=== PATIENT | male | born 1960 | race Caucasian/White ===

== ENCOUNTER 2018-10-25 17:29 | Inpatient (IN) | payer OTHER ==
[2018-10-25] MEDS ORDERED: ONDANSETRON 4 MG/2 ML VIAL IVP ONE (17:51)
[2018-10-25] MEDS ORDERED: NS 1,000 ML IV ONE ×2 (17:56→18:29)
--- NOTE | 2018-10-25 17:56 | EDPHY ---
H & P Stated Complaint: abd pain, n/v - Personal History Current Tetanus/Diphtheria Vaccine: Yes Current Tetanus Diphtheria and Acellular Pertussis (TDAP): Yes - Medical/Surgical History Hx Asthma: No Hx Chronic Respiratory Disease: No Hx Diabetes: No Hx Cardiac Disease: No Hx Renal Disease: No Hx Cirrhosis: No Hx Alcoholism: No Hx HIV/AIDS: No Hx Splenectomy or Spleen Trauma: No Other PMH: endoscopy, GERD, - Social History Smoking Status: Never smoked Time Seen by Provider: 10/25/18 17:46 HPI/ROS: CHIEF COMPLAINT: Abdominal pain post EGD HISTORY OF PRESENT ILLNESS: 57-year-old male arrives via private vehicle complaining of abdominal pain post EGD this morning by Dr. Anand Parks. Describes waking with progressive abdominal pain which comes in waves. He had 1 episode of vomiting. No hematemesis. No melena hematochezia. No dyspnea. No back pain. No headache. PRIMARY CARE PROVIDER: REVIEW OF SYSTEMS: 10 systems reviewed and negative with the exception of the elements mentioned in the history of present illness PAST MEDICAL & SURGICAL HISTORY: EGD earlier today by Dr. Anand Parks secondary to history of esophageal reflux. No history of abdominal surgeries. SOCIAL HISTORY: Nonsmoker PHYSICAL EXAM (Prior to examination, patient consented to physical exam, hands were washed and my usual and customary physical exam procedures followed) 1) GENERAL: Well-developed, well-nourished, alert and oriented. Appears appears uncomfortable,. 2) HEAD: Normocephalic, atraumatic 3) HEENT: Pupils equal, round, reactive to light bilaterally. Sclera anicteric. 4) NECK: Full range of motion, no meningeal signs. 5) LUNGS: Clear auscultation bilaterally, no wheezes, no rhonchi, no retractions. 6) HEART: Regular rate and rhythm, no murmur, no heave, no gallop. No crepitus. 7) ABDOMEN: No guarding, no rebound, no focal tenderness, negative McBurney's, negative Guillaume's, negative Rovsing's, negative peritoneal sign, 8) MUSCULOSKELETAL: Moving all extremities, no focal areas of tenderness, no obvious trauma. No peripheral edema or discoloration. 9) BACK: No CVA tenderness, no midline vertebral tenderness, no fluctuance, no step-off, no obvious trauma, no visual or palpable abnormality. 10) SKIN: No rash, no petechiae. 11) Psychiatric: Patient is oriented X 3, there is no agitation. DIFFERENTIAL DIAGNOSIS: In no particular order including but not limited to esophageal perforation, visceral perforation, postprocedure pain (Gisele Holland) I did seen and evaluate this patient. Perforated Viscous. IV Abx, IV fluids, Surgery Consult, Admit. Dr. Leon Consulted for perforation. Patient stable. NAD. Has abdominal pain/Chest pain from Free air. (Shun Mcdonald) Constitutional: Initial Vital Signs Temperature (C) 37.2 C 10/25/18 17:33 Heart Rate 85 10/25/18 17:33 Respiratory Rate 16 10/25/18 17:33 Blood Pressure 85/65 L 10/25/18 17:33 O2 Sat (%) 91 L 10/25/18 17:33 O2 Delivery Mode Simple Mask O2 (L/minute) 10 Allergies/Adverse Reactions: No Known Allergies Allergy (Unverified 10/25/18 17:32) Home Medications: Medication Instructions Recorded Budesonide [Rhinocort Allergy] 1 spray NS DAILY 10/25/18 Loratadine 10 mg PO DAILY 10/25/18 Omeprazole 40 mg PO DAILY 10/25/18 Medical Decision Making - Diagnostics Imaging Results: Imaging Impressions Chest X-Ray 10/25/18 22:46 Impression: Postsurgical changes at the GE junction, with persistent pneumomediastinum and bibasilar atelectasis Images reviewed myself (Gisele Holland) ED Course/Re-evaluation: 5:55 p.m.: Will obtain i-STAT creatinine, CT chest abdomen pelvis. Care of patient under supervision of secondary supervising physician Dr Mcdonald spoke with Dr. Anand Parks earlier today and with whom I discussed case. 6:23 p.m.: CT positive for pneumoperitoneum and pneumomediastinum. 6:26 p.m.: Consultation with Dr. Stas Bianchi, recommends GI consultation and he will come to the ER to evaluate patient. Patient given IV Invanz 6:35 p.m.: Consultation with Dr. Anand Parks who request the on-call entry level project engineer contact him. 6:55 p.m.: Dr. Monroe Robles gastroenterology aware. (Gisele Holland) - Data Points Laboratory Results: Laboratory Results 10/25/18 17:40 10/25/18 17:40 Microbiology Results: MICROBIOLOGY 10/25/18 20:10 Abdomen - Eswab Gram Stain - Final Medications Given: Enoxaparin Sodium (Lovenox) 40 mg SC DAILY [facility] Stop: 04/24/19 08:59 Last Admin: 10/26/18 09:20 Dose: 40 mg Hydromorphone HCl (Dilaudid) 0.5 - 1 mg IVP Q1HR PRN PRN Reason: Pain, Severe Unable to Take PO Stop: 11/04/18 22:39 Last Admin: 10/26/18 04:48 Dose: 1 mg Ertapenem 1 gm/ Sodium (Chloride) 100 mls @ 200 mls/hr IV DAILY CONY PRN Reason: Protocol Stop: 11/25/18 08:59 Last Admin: 10/26/18 09:20 Dose: 100 mls Sodium Chloride (Ns) 1,000 mls @ 125 mls/hr IV CONT CONY Stop: 04/24/19 06:44 Last Admin: 10/26/18 07:36 Dose: 1,000 mls Ondansetron HCl (Zofran) 4 mg IVP Q4HRS PRN PRN Reason: Nausea/Vomiting, Can't Take PO Stop: 04/23/19 22:39 Last Admin: 10/25/18 23:21 Dose: 4 mg Discontinued Medications Bupivacaine HCl (Sensorcaine 0.25% Sdv) Confirm Administered Dose 30 ml .ROUTE .STK-MED ONE Stop: 10/25/18 18:46 Last Admin: 10/25/18 22:00 Dose: 20 ml Hydromorphone HCl (Dilaudid) 1 mg IVP EDNOW ONE Stop: 10/25/18 18:30 Last Admin: 10/25/18 18:33 Dose: 1 mg Hydromorphone HCl (Dilaudid) 1 mg IVP EDNOW ONE Stop: 10/25/18 18:31 Last Admin: 10/26/18 00:15 Dose: Not Given Sodium Chloride (Ns) 1,000 mls @ 0 mls/hr IV ONCE ONE PRN Reason: Wide Open Stop: 10/25/18 17:57 Last Admin: 10/25/18 18:13 Dose: 1,000 mls Ertapenem 1 gm/ Sodium (Chloride) 100 mls @ 200 mls/hr IV EDNOW ONE PRN Reason: Protocol Stop: 10/25/18 18:49 Last Admin: 10/25/18 18:39 Dose: 100 mls Sodium Chloride (Ns) 1,000 mls @ 0 mls/hr IV ONCE ONE PRN Reason: Wide Open Stop: 10/25/18 18:30 Last Admin: 10/25/18 18:46 Dose: 1,000 mls Bupivacaine HCl 270 ml/ IV (Miscellaneous Supplies) 270 mls @ 0 mls/hr NB ONCALL ONE PRN Reason: As Directed Stop: 10/25/18 21:31 Last Admin: 10/25/18 22:33 Dose: 270 mls Dextrose/Sodium Chloride (D5w Ns) 1,000 mls @ 125 mls/hr IV CONT CONY Stop: 10/26/18 22:44 Last Admin: 10/26/18 05:09 Dose: 1,000 mls Morphine Sulfate (Morphine) 4 mg IVP EDNOW ONE Stop: 10/25/18 17:52 Last Admin: 10/25/18 18:12 Dose: 4 mg Ondansetron HCl (Zofran) 4 mg IVP EDNOW ONE Stop: 10/25/18 17:52 Last Admin: 10/25/18 18:11 Dose: 4 mg Point of Care Test Results: Chemistry 10/25/18 17:53 POC Sodium 141 mEq/L mEq/L (135-145) POC Potassium 3.9 mEq/L mEq/L (3.3-5.0) POC Chloride 104 mEq/L mEq/L (97-110) POC BUN 23 mg/dL mg/dL (7-23) POC Creatinine 1.1 mg/dL mg/dL (0.7-1.3) POC Glucose 121 mg/dL H mg/dL (70-100) ISTAT H&H 10/25/18 17:53 POC Hgb 16.0 gm/dL gm/dL (13.7-17.5) POC Hct 47 % % (40-51) Departure - Departure Disposition: To OP Cath/Surgery Clinical Impression: Perforated viscus Condition: Fair
[2018-10-25] MEDS ORDERED: IOPAMIDOL (ISOVUE-300) 100 ML BTL ONE (17:59)
[2018-10-25 18:01] LABS: PLATELET COUNT 227 10^3/uL (150-400)
[2018-10-25] MEDS ORDERED: ERTAPENEM 1 GM in NS 100 ML IV ONE (18:20)
[2018-10-25] MEDS ORDERED: HYDROmorphONE/DILAUDID 1 MG/ML INJ ONE (18:28)
[2018-10-25] MEDS ORDERED: HYDROmorphONE/DILAUDID 1 MG/ML INJ IVP ONE ×2 (18:29→18:30)
[2018-10-25] MEDS ORDERED: BUPIVACAINE 0.25% 10 ML SDV ONE (18:45)
[2018-10-25] MEDS ORDERED: fentaNYL 250 MCG/5 ML INJ ONE (18:59)
[2018-10-25] MEDS ORDERED: PROPOFOL/EMULSION 500 MG/50 ML BOTTLE IV ONE (19:01)
--- NOTE | 2018-10-25 19:26 | PDANEPAE ---
ANE History of Present Illness 57 year old male with esophageal perforation for surgical repair. ANE Past Medical History - Cardiovascular History Hx Hypertension: No Hx Arrhythmias: No Hx Chest Pain: No Hx Coronary Artery / Peripheral Vascular Disease: No Hx CHF / Valvular Disease: No Hx Palpitations: No - Pulmonary History Hx COPD: No Hx Asthma/Reactive Airway Disease: No Hx Recent Upper Respiratory Infection: No Hx Oxygen in Use at Home: No Hx Sleep Apnea: No - Endocrine History Hx Diabetes: No ANE Review of Systems Review of systems is: negative Review of Systems: ANE Patient History - Allergies Allergies/Adverse Reactions: No Known Allergies Allergy (Unverified 10/25/18 17:32) - Home Medications Home Medications: Loratadine 10/25/18 [Last Taken Unknown] Omeprazole 10/25/18 [Last Taken Unknown] Rhinocort Allergy 10/25/18 [Last Taken Unknown] - NPO status NPO Since - Liquids (Date): 10/25/18 NPO Since - Liquids (Time): 13:00 NPO Since - Solids (Date): 10/25/18 NPO Since - Solids (Time): 13:00 - Smoking Hx Smoking Status: Never smoked ANE Labs/Vital Signs - Labs Result Diagrams: 10/25/18 17:40 10/25/18 17:40 - Vital Signs Blood Pressure: 148/91 Heart Rate: 115 Respiratory Rate: 18 O2 Sat (%): 96 Weight: 88.904 kg ANE Physical Exam - Airway Neck exam: FROM Mallampati Score: Class 2 Mouth exam: normal dental/mouth exam - Pulmonary Pulmonary: no respiratory distress - Cardiovascular Cardiovascular: tachycardia - ASA Status ASA Status: III, E ANE Anesthesia Plan Anesthesia Plan: general endotracheal anesthesia Lines/Monitors: arterial line
--- NOTE | 2018-10-25 20:32 | PDGENHP ---
History and Physical History and Physical: History and Physical Exam dictated #[id number] S MD Edward, FACS
[2018-10-25] MEDS ORDERED: BUPIVACAINE 0.25% 270 ML in PUMP SET 1 EA NB ONE (21:30)
[2018-10-25] MEDS ORDERED: NALOXONE HCL 0.4 MG/ML INJ IVP PRN (21:46)
[2018-10-25] MEDS ORDERED: LR 500 ML IV PRN (21:46)
[2018-10-25] MEDS ORDERED: ONDANSETRON 4 MG/2 ML VIAL IVP PRN (21:46)
[2018-10-25] MEDS ORDERED: LABETALOL HCL 5 MG/ML 20 ML MDV IVP PRN (21:46)
[2018-10-25] MEDS ORDERED: ALBUTEROL 3 ML DEYVIAL IH PRN (21:46)
[2018-10-25] MEDS ORDERED: fentaNYL 100 MCG/2 ML INJ IVP PRN (21:46)
--- NOTE | 2018-10-25 22:46 | POSTANESTH ---
Post Anesthetic Evaluation Cardiovascular Status: Normal, Stable Respiratory Status: Normal, Stable Level of Consciousness/Mental Status: Moderately Sleepy Pain Control: Adequate, Prn Tx Ordered Nausea/Vomiting Control: Adequate, Prn Tx Ordered Complications Possibly Related to Anesthesia: None Noted (Patient restrained secondary to attempting to pull OG tube which needs to remain in place.)
--- NOTE | 2018-10-25 22:50 | POSTOPPROG ---
Post Op Note Date of Operation: 10/25/18 Surgeon: Shun Leon (, FACS) Anesthesiologist: Sobeida uSazo MD Anesthesia: GET(General Endotracheal) Pre-op Diagnosis: esophogeal perforation Findings: 3 cm laceration at the GE junction with peritonitis/mediastinitis Inf/Abcess present in the surg proc area at time of surgery?: Yes Depth: Organ Space EBL: 50-100 Specimen(s): culture of peritoneal fluid for aerobes/anaerobes
--- NOTE | 2018-10-25 22:57 | GHP ---
DATE OF ADMISSION: 10/25/2018 CHIEF COMPLAINT: Chest and abdominal pain. HISTORY OF PRESENT ILLNESS: The patient is a 57-year-old male who underwent elective esophagoscopy a nd dilatation of the distal esophagus for symptoms of reflux and dysphagia earlier today by Dr. Jacky vazquez. Patient returned to the emergency room with chest and abdominal pain, was seen by Cipriano gallegos PA-C, and a CT scan of the chest and abdomen were performed which showed mediastinal and abdominal free air. The patient was mildly hypotensive upon arrival with initial blood pressure of 85/65. He responded to fluid resuscitation, though he has become progressively tachycardic. Surgical consulta tion was requested. PAST MEDICAL HISTORY: Significant for prior skin cancer. He has allergies and chronic GERD. He is a nonsmoker. Chronic medications include Rhinocort, loratadine, and omeprazole. He has no known sharath g allergies. Denies significant alcohol use. FAMILY HISTORY: Noncontributory. SOCIAL HISTORY: Patient is , accompanied by his . Her sister is an oncologist in [place], and I spoke with her on the phone describing the nature of the findings and my recommendations for i mmediate surgery. 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 PHYSICAL EXAMINATION: VITAL SIGNS: Blood pressure 140/90, heart rate 115, respiratory rate 18, O2 s at is 96%. Temperature is 37.1. GENERAL: Patient is a pale, otherwise well-developed, well-nourish ed male in moderate distress despite having received intravenous narcotics. HEENT: There is no jugu lar venous distention. Trachea is midline. Sclerae are anicteric. CHEST: Clear to auscultation wi th diminished breath sounds at both bases. HEART: Regular in rate and rhythm with tachycardia. Ham mond's crunch is appreciated on exam. ABDOMEN: Firm, tender throughout the upper mid epigastrium wi th hypoactive bowel sounds. Rectal and prostate exam were not repeated. Patient voided a small amou nt of dark concentrated urine. EXTREMITIES: Warm and dry without edema. Patient's CT scan was reviewed and shows mediastinal and abdominal air including free air in the abdo prashanth cavity. There is gas within the stomach. No appreciable or significant hiatal hernia is noted . No pleural effusion on either side or pneumothorax is noted. LABORATORY STUDIES: WBC is 13, hemoglobin 16, hematocrit 47, platelets 227. Sodium 141, potassium 3 .9, chloride 104, BUN 23, creatinine 1.1, glucose 121, bilirubin 1.2, AST 42, ALT 47, alk phos 56, li pase 119. Urinalysis is pending. IMPRESSION: 1. Esophageal perforation, likely at the gastroesophageal junction, though this cannot be clearly de lineated on imaging without oral contrast. 2. Evidence of early sepsis. Patient was fluid resuscitated and has received 1 g of ertapenem. He will require ongoing fluid resuscitation and is at significant risk for systemic inflammatory respons e syndrome, multiple system organ failure, and I recommend postoperative management in the intensive care unit. 3. History of gastroesophageal reflux disease, which prompted the procedure done earlier today. 4. History of skin cancer. RECOMMENDATIONS: I discussed the findings with the patient and his as well as with her sister t he oncologist on the phone and albert them anatomic diagrams detailing where I believe the perforation to be and what the procedure would be to repair that. I emphasized that this is a potentially life-t hreatening injury and that surgery would be the best performed earlier than later. We discussed the alternative of esophageal stent, which I did not recommend because of the potential for tearing at th e GE junction where stent migration and failure are high. I would consider a fundoplication in this patient for buttressing an esophageal repair and prepared the patient for the possibility of needing a thoracotomy. Copy requested to: Cipriano Holland PA-C /[id number]/MODL
[2018-10-25] MEDS: ONDANSETRON 4 MG/2 ML VIAL IVP PRN (23:21)
[2018-10-25] MEDS: D5W NS 1,000 ML IV SCH (23:28)
[2018-10-25] MEDS: HYDROmorphONE/DILAUDID 1 MG/ML INJ IVP PRN (23:45)
[2018-10-26] MEDS ORDERED: LORazepam 2 MG/ML INJ IVP PRN (00:28)
[2018-10-26] MEDS: HYDROmorphONE/DILAUDID 1 MG/ML INJ IVP PRN ×7 (00:43→22:41)
[2018-10-26 04:57] LABS: PLATELET COUNT 181 10^3/uL (150-400)
[2018-10-26] MEDS: D5W NS 1,000 ML IV SCH (05:09)
--- NOTE | 2018-10-26 06:46 | SOAPPROG ---
SOAP Progress Note Assessment/Plan: Assessment: Plan: Subjective: awake, resting more comfortably Objective: Vital Signs Temp Pulse Resp BP Pulse Ox 36.8 C 95 15 143/95 H 95 10/26/18 04:00 10/26/18 04:00 10/26/18 04:00 10/26/18 03:00 10/26/18 04:00 Laboratory Results 10/26/18 04:40 10/26/18 04:40 10/25/18 10/26/18 10/27/18 05:59 05:59 05:59 Intake Total 2800 Output Total 810 Balance 1989 Physical Exam - Physical Exam General Appearance: moderate distress EENT: other (NGT secured) Respiratory: lungs clear, decreased breath sounds Cardiac/Chest: regular rate, rhythm Peripheral Pulses: 4+: dorsalis-pedis (R), dorsalis-pedis (L) Abdomen: soft, other (hypoactive bowel sounds, dressings dry and intact) Male Genitalia: deferred, other (Taveras) Rectal: deferred ICD10 Worksheet Patient Problems: Problems Problem Status Onset Perforated viscus Acute
[2018-10-26] MEDS: NS 1,000 ML IV SCH ×2 (07:36→15:57)
[2018-10-26] MEDS: ERTAPENEM 1 GM in NS 100 ML IV SCH (09:20)
[2018-10-26] MEDS: ENOXAPARIN 40 MG/0.4 ML SYR SC SCH (09:20)
--- NOTE | 2018-10-26 10:17 | PDMN ---
Medical Necessity Medical necessity: Pt meets inpt criteria per MD orders and General Surgery GRG , repair of gastroesophageal perforation, Medicare inpt only list. 57 y/o w/ esophageal perforation and sepsis admitted for surg repair of gastroesophageal perf w/peritonitis and mediastinitis, post-op care, treatment of sepsis. NGT in place, NPO, IVF, IV ABX's, cultures pending, IV Dilaudid for pain, ICU monitoring. Est LOS>2MN for ongoing eval/management of above.
--- NOTE | 2018-10-26 11:29 | GOP ---
DATE OF OPERATION: 10/25/2018 SURGEON: Shun Leon MD, FACS CONTENT ASSISTANT: Lc Allen CST. ANESTHESIA: General endotracheal. ANESTHESIOLOGIST: Sobeida Suazo MD PREOPERATIVE DIAGNOSIS: 1. Esophageal perforation, status post esophageal dilatation. 2. Pneumoperitoneum. 3. Mediastinal air. POSTOPERATIVE DIAGNOSIS: PROCEDURE PERFORMED: Laparotomy with repair of laceration of the gastroesophageal junction, Lorenza fundoplication, irrigation and evacuation of peritonitis, drainage of the mediastinum. FINDINGS: A 3 cm laceration in the right anterolateral gastroesophageal junction with moderate upper abdominal peritonitis. Culture submitted for aerobes and anaerobes. Posterior mediastinal drains placed. ESTIMATED BLOOD LOSS: 50 mL. DESCRIPTION OF PROCEDURE: After informed consent was obtained, the patient was brought to the operating room and placed under general anesthesia. He was positioned with a wedge under the left shoulder with the right arm draped across the chest with an airplane padding all pressure points in the event that we had to convert to a thoracoabdominal incision. Taveras catheter was placed and he drained some concentrated appearing urine. He was transiently hypotensive after induction and moderately tachycardic, and responded well to fluid resuscitation. The abdomen and chest were prepped and draped in usual fashion. Before proceeding, a time-out and identification of the patient was performed. The abdomen was entered through an upper midline incision extending from the xiphoid to the umbilicus. There was a moderate amount of peritoneal fluid that was dark brownish cloudy in appearance and staining of the lesser omentum was observed. The Omni-Tract retractor was used to facilitate exposure. The left lateral lobe of the liver was detached from the diaphragm incising the hepatophrenic ligament and folding the liver medially and retracting it gently with a padded retractor. The abdominal wall was retracted to the left with a body wall retractor. The stomach was markedly dilated and had been observed to be full of air on the preoperative CT. The lesser omentum was incised with cautery and dissected with the Harmonic scalpel cephalad to the right diaphragmatic alena. As the GE junction was mobilized, the perforation site came into view and measured approximately 3 cm. A good deal of the gastric contents was evacuated through the perforation site. The esophagus was dissected circumferentially and encircled with a 1 inch Leon drain for gentle retraction. Dr. Suazo tried several times to pass a nasogastric tube unsuccessfully. I scrubbed out at this point and attempted several times to pass a nasogastric tube as well and was unsuccessful meeting resistance in the distal thorax. Trying to avoid additional injury, I passed a nasogastric tube retrograde from the operative field after scrubbing back in, and Dr. Suazo retrieved it via the patient's oropharynx. I then scrubbed out a second time, sutured a 16-Azerbaijani nasogastric tube to the nasogastric tube that had been passed retrograde from the perforation site to the mouth and pulled it through into the stomach. The tube was positioned in the body of the stomach through the defect. Subsequently, the defect was repaired in 2 layers with 3-0 Vicryl suture, closing the mucosal layer, and interrupted 2-0 Vicryl sutures closing the outer muscular coat. The tissues appeared viable, but were stained with bile and gastric contents. The upper abdomen was then copiously irrigated with warm normal saline solution and aspirated. The cardia of the stomach was then mobilized taking down the short gastric vessels with the Harmonic scalpel, taking care to protect the spleen in the course of dissection. The cardia of the stomach was then brought posterior to the esophagus and sutured to itself anteriorly with interrupted 2- 0 Vicryl sutures. The fundoplication was used as a tissue buttress for the repair and was left loose because of the patient's history of dysphagia and reflux. Upon completion, the repair appeared intact without undue tension. The posterior mediastinum was irrigated and suction aspirated. Two 119-Azerbaijani fluted silicone drains were passed up into the mediastinum from the right side of the fundoplication and posterior to the esophagus. These were brought through the abdominal wall below the edge of the incision. The retractors were removed and the liver was returned to its anatomic position. The omentum was placed over the lesser sac for additional reinforcement. The midline incision was then closed with continuous running looped #1 PDS suture. The drains were secured to the skin with 3-0 nylon suture. The bilateral ON-Q catheters were then tunneled from inferior to cephalad, 5 inch catheters were used and these were passed up to the costal margin. The final skin closure of the incision was then performed with andrea. Sterile dressings were applied. Nasogastric tube was secured with a circumferential tape. The patient was extubated and returned directly to the intensive care unit in satisfactory condition. COUNTS: Needle, sponge, and instrument count were correct. COMPLICATIONS: None. Copy requested to: Cipriano Hollnad PA-C /[id number]/MODL MTDD
--- NOTE | 2018-10-26 11:29 | GCON ---
WRAPPER LEAF INSPECTOR CONSULTATION REFERRING PHYSICIAN: Shun Leon MD REASON FOR ADMISSION: Perforation after upper endoscopy. HISTORY: The patient is a 57-year-old white male with a past medical history including skin cancer, chronic gastroesophageal reflux disease. He underwent upper endoscopy with dilatation of the distal esophagus by Dr. Jacky Parks. He returned to the emergency room with complaints of chest pain and abd ominal pain. CT scan apparently revealed mediastinal and abdominal free air. He was taken to the em ergency room by Dr. Shun Leon where he underwent repair of GE junction perforation, as well as kj ogastric decompression of the stomach. He was transferred to the intensive care unit. In discussion with the patient, he states that with the exception of some pain, he is doing quite well. He denies any cough or production of sputum. There is no fever or night sweats. No nausea, vomiting, or diar rocky. He is currently on ertapenem. PAST MEDICAL HISTORY: Again, significant for chronic gastroesophageal reflux disease. ALLERGIES: No known allergies to medications. SOCIAL HISTORY: No history of tobacco use. He is and has excellent family support. No sign ificant alcohol use. MEDICATIONS: Medications at home include Rhinocort, loratadine, and omeprazole. REVIEW OF SYSTEMS: Ten-point review of systems was performed, negative except for what is listed in HPI. PHYSICAL EXAM: VITAL SIGNS: Blood pressure is 139/83, pulse 90, respirations 22, temperature 38.1, oxygen saturation 95% on 2 L. GENERAL: He is well-developed 57-year-old white male who is resting c omfortably, with orogastric tube and in restraints. HEENT: Eyes are PERRL, EOMI. Throat exam is de ferred. NECK: Supple. No cervical adenopathy. HEART: Regular rate and rhythm, without murmurs, r ubs, or gallops. LUNGS: Diminished breath sounds but no wheeze. ABDOMEN: Soft, appropriately tend er. Bowel sounds are diminished. EXTREMITIES: No clubbing, cyanosis, or edema. LABORATORIES: White count 7.7, hemoglobin 15, hematocrit 44. Platelet count is 181. Sodium 138, po tassium 5.0, chloride 109, CO2 22, BUN 18, creatinine 0.9. Glucose is 178. CT scan of chest reveals extensive pneumomediastinum. No pneumothorax is noted. Abdominal CT again shows pneumomediastinum, air tracking in the upper abdomen, including intraperitoneal, retroperitoneal, perihepatic and perip ortal spaces. IMPRESSION: 1. Status post iatrogenic perforation of the distal esophagus at the gastroesophageal junction. 2. Status post repair. 3. Peritonitis. 4. Pneumomediastinum. 5. History of gastroesophageal reflux disease. RECOMMENDATIONS: 1. Adequate pain control. 2. DVT and PE prophylaxis. 3. Stress ulcer prophylaxis. 4. Continue current antibiotics. 5. Infectious Disease to see the patient. 6. Will discuss the case with surgery. /[id number]/MODL
[2018-10-26] MEDS: ONDANSETRON 4 MG/2 ML VIAL IVP PRN (12:07)
--- NOTE | 2018-10-26 14:22 | ASMTCMCOM ---
CM Note CM Note Notes: 10/26/2018 Case Management Note Reviewed chart. Pt admitted for visceral perforation, pneumoperitoneum, and pneumomediastinum. Pt had EGD outpatient procedure earlier on 10/25 before presenting to the ED. Pt has ID consult pending. Currently on Etrapenam with cultures pending. There are no therapy evals ordered at this time. Pt has supportive and family. Case Management d/c poc: to be determined. Case Management to follow. Date Signed: 10/26/2018 02:21 PM Electronically Signed By:Svetlana Storey RN
--- NOTE | 2018-10-26 17:58 | SOAPPROG ---
Downtime Inpatient MD Late Entry SOAP Note: Samir is uncomfortable due to the orogastric tube He remains tachycardic, but without hypotension His surgical site is uncomplicated Prelim cultures are growing out Staph aureus (sens pending) I discussed his case with Dr. Monzon and she recommended starting Vanco and Fluconazole and she will see him tomorrow. Iliana Leon MD, FACS
[2018-10-26] MEDS: VANCOMYCIN HCL/NORMAL SALINE 250 ML IV SCH (19:29)
[2018-10-26] MEDS: FLUCONAZOLE/NaCl 200 ML IV SCH (19:29)
[2018-10-27] MEDS: HYDROmorphONE/DILAUDID 1 MG/ML INJ IVP PRN ×7 (01:39→20:12)
[2018-10-27] MEDS ORDERED: NS BOLUS 500 ML (Wide open) IV ONE (03:30)
[2018-10-27 04:02] LABS: PLATELET COUNT 113 10^3/uL (150-400)
[2018-10-27] MEDS: VANCOMYCIN HCL/NORMAL SALINE 250 ML IV SCH ×2 (05:58→17:18)
[2018-10-27] MEDS ORDERED: NS 1,000 ML IV ONE (07:07)
--- NOTE | 2018-10-27 07:12 | SOAPPROG ---
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 Monzon appreciated CT chest now check ABG 10/27/18 07:11 Subjective: sedated and resting comfortably Objective: Vital Signs Temp Pulse Resp BP Pulse Ox 37.9 C 129 H 25 H 145/91 H 90 L 10/27/18 05:46 10/27/18 05:46 10/27/18 05:46 10/27/18 05:46 10/27/18 05:46 Laboratory Results 10/27/18 03:20 10/27/18 03:20 10/26/18 10/27/18 10/28/18 05:59 05:59 05:59 Intake Total 800 3581 Output Total 810 1890 Balance -10 1691 - Pending Discharge Pending Discharge Within 24 Hours: No Pending Discharge Within 48 Hours: No Physical Exam - Physical Exam General Appearance: other (sedated ) EENT: other (OGtube in place) Neck: other (subcut crepitance) Respiratory: decreased breath sounds Cardiac/Chest: regular rate, rhythm, tachycardia Abdomen: soft, other (serous TREMAYNE output) Skin: warm/dry Neuro/Psych: other (sedated but responsive) ICD10 Worksheet Patient Problems: Problems Problem Status Onset Perforated viscus Acute
[2018-10-27] MEDS ORDERED: IOPAMIDOL (ISOVUE-300) 100 ML BTL ONE (07:34)
[2018-10-27] MEDS: ERTAPENEM 1 GM in NS 100 ML IV SCH (08:38)
[2018-10-27] MEDS: ENOXAPARIN 40 MG/0.4 ML SYR SC SCH (08:39)
--- NOTE | 2018-10-27 09:14 | PDINTPN ---
Sales Order Processor Progress Note Assessment/Plan: Assessment/plan: * Status post esophageal perforation after upper endoscopy with dilatation * Status post repair perforation at GE junction and decompression stomach * Worsening bilateral infiltrates and left lower lobe atelectasis * Increasing left pleural effusion -chest tube to be placed by surgery * Small left pneumothorax, as well as worsening subcutaneous emphysema and pneumomediastinum * History of gastroesophageal reflux disease * Pain-reasonably well controlled * Peritonitis-antibiotics per Infectious Disease * VT prophylaxis * Stress ulcer prophylaxis * Disposition-? Subjective: Resting comfortably. Pain reasonably well tolerated. Objective: Vital Signs Temp Pulse Resp BP Pulse Ox 36.8 C 109 H 20 135/89 H 95 10/27/18 08:00 10/27/18 08:00 10/27/18 08:00 10/27/18 08:00 10/27/18 08:00 Laboratory Results 10/27/18 03:20 10/27/18 03:20 10/26/18 10/27/18 10/28/18 05:59 05:59 05:59 Intake Total 800 3581 Output Total 810 1890 Balance -10 1691 - Time Spent With Patient Time Spent With Patient: 35 min of time spent with patient, over 1/2 involved coordination of care or counseling. Case discussed with surgery and nursing Physical Exam - Physical Exam General Appearance: alert, no apparent distress EENT: PERRL/EOMI Neck: non-tender Respiratory: chest non-tender, crackles (Bibasilar), No respiratory distress, No wheezing Cardiac/Chest: normal peripheral pulses, regular rate, rhythm Abdomen: non-tender, soft, No normal bowel sounds Male Genitalia: deferred Rectal: deferred Skin: warm/dry Extremities: non-tender Neuro/Psych: alert, oriented x 3 ICD10 Worksheet Patient Problems: Problems Problem Status Onset Perforated viscus Acute
[2018-10-27] MEDS ORDERED: LIDO/EPI 1% **Not for Epidural 20 ML MDV IF ONE (09:30)
[2018-10-27] MEDS: FLUCONAZOLE/NaCl 200 ML IV SCH (09:41)
[2018-10-27] MEDS ORDERED: LIDOCAINE 1% 300 MG/30 ML SDV IF ONE (10:45)
--- NOTE | 2018-10-27 11:28 | POSTOPPROG ---
Post Op Note Date of Operation: 10/27/18 Surgeon: Shun Leon (, FACS) Anesthesia: Local (Specify) Pre-op Diagnosis: bilateral pleural effusions Indication: s/p repair distal esophogeal perforation Procedure: bilateral CT placement Findings: large effusion left/bloody effusion right Inf/Abcess present in the surg proc area at time of surgery?: Yes Depth: Organ Space EBL: 50-100 Drains: Other (#36 CT x 2)
[2018-10-27] MEDS: PANTOPRAZOLE SODIUM 40 MG VIAL IVP SCH (12:36)
[2018-10-27] MEDS ORDERED: LIDOCAINE 1% *Not for Epidural 20 ML MDV IH ONE (12:45)
[2018-10-27] MEDS: CEPACOL LOZENGE PO PRN (14:40)
[2018-10-27] MEDS: NS 1,000 ML IV SCH (15:15)
--- NOTE | 2018-10-27 15:57 | ASMTCMCOM ---
CM Note CM Note Notes: Spoke with patient's nurse. Patient has bilateral chest tubes and is currently 4L02. There are concerns regarding sepsis so patient is on vanco and Invanz. Patient will need a swallow, currently NPO. D/C plan TBD. CM will follow. Date Signed: 10/27/2018 03:57 PM Electronically Signed By:Carrie Ram LCSW
[2018-10-27] MEDS: BENZOCAINE UNIT DOSE SPRAY HURRICAINE MM PRN (20:12)
[2018-10-28] MEDS: HYDROmorphONE/DILAUDID 1 MG/ML INJ IVP PRN ×4 (00:37→21:02)
[2018-10-28] MEDS: DILTIAZEM HCL/D5W 125 ML IV SCH ×2 (03:19→09:41)
[2018-10-28 03:39] LABS: PLATELET COUNT 101 10^3/uL (150-400)
[2018-10-28] MEDS: NS 1,000 ML IV SCH ×2 (05:05→17:36)
--- NOTE | 2018-10-28 05:54 | GCON ---
INFECTIOUS DISEASE CONSULTATION DATE OF CONSULTATION: 10/27/2018 REFERRING PHYSICIAN: Shun Leon MD REASON FOR CONSULTATION: Esophageal perforation with peritonitis and mediastinitis. HISTORY OF PRESENT ILLNESS: Patient is a 57-year-old male who I am asked to see in consultation for peritonitis and mediastinitis associated with esophageal perforation. The patient was admitted on after having undergone elective EGD with dilatation of the distal esophagus for reflux earli er that day with subsequent onset of chest and abdominal pain with imaging showing mediastinal and ab dominal free air. The patient was taken to the operating room based on these findings with findings of esophageal perforation and associated peritonitis and mediastinitis. The patient underwent laparo pushpa with repair of laceration of the GE junction with Lorenza fundoplication and irrigation and evacu ation of peritonitis and mediastinitis. The patient has been treated with ertapenem based on above f indings. Yesterday, cultures were noted to be growing rare Staphylococcus aureus, at which point in time Dr. Monzon was notified by Dr. Leon. Recommendation for addition of vancomycin and fluconazole w as made. Earlier today, the patient had increasing respiratory effort and chest x-ray showed bilater al pleural effusions. The patient subsequently underwent chest tube placement bilaterally. Gram sta in of both chest tube specimens shows no organisms with 4+ white blood cells being present. The lillian ent was febrile overnight with a temperature maximum of 38.8. The patient is being cared for in the intensive care unit based on continued increased respiratory effort. Given the above findings, I am now asked to assist in his ongoing management. PAST MEDICAL HISTORY: Gastroesophageal reflux, skin cancer resection, seasonal rhinitis. SURGICAL HISTORY: Skin cancer removal, as above. CURRENT MEDICATIONS: Vancomycin 1 g IV q.12 hours, ertapenem 1 g IV daily, fluconazole 200 mg IV eva ly, Lovenox 40 mg subcu daily, Dilaudid as needed, Protonix 40 mg IV daily. ALLERGIES: No known drug allergies. SOCIAL HISTORY: The patient does not smoke. Rare alcohol intake. FAMILY HISTORY: Noncontributory to current presentation. REVIEW OF SYSTEMS: Outside that noted in the HPI, the remainder of 10-system review is unremarkable except for postoperative pain. PHYSICAL EXAMINATION: VITAL SIGNS: Temperature maximum 38.8, temperature current 37.2, heart rate 1 10, respiratory rate 23, blood pressure 141/88, oxygen saturation 99% on 20 L. GENERAL: The patient is an obese male in mild distress secondary to increased respiratory effort. HEENT: There is no sc leral icterus, conjunctival injection, or conjunctival petechiae. An OG tube is present in the oroph arynx. Face mask oxygen is in place. There is no sinus tenderness. NECK: Without lymphadenopathy or thyromegaly. Range of motion was not assessed due to OG tube being in place. CHEST: There are c oarse breath sounds bilaterally. A large postoperative dressing is present over the chest. CARDIOVA SCULAR: Tachycardic without murmurs, gallops, or rubs. ABDOMEN: Obese, mildly tender to palpation with mild distention. Large dressing is in place. Bowel sounds are not present. MUSCULOSKELETAL: There is no cyanosis, clubbing, or edema. SKIN: No rashes noted. No stigmata of endocarditis. Ski n is warm and dry to touch. NEUROLOGIC: The patient is mildly agitated. Moves all extremities spon taneously. LYMPHATICS: No cervical or supraclavicular nodes noted. LABORATORY DATA: White blood cell count 7.5, hematocrit 43.1, platelets 113, neutrophils 80%. Serum creatinine 0.9, bicarb 26. Gram stain from the peritoneal fluid shows 4+ white blood cells with no organisms with rare growth of Staphylococcus aureus. Pleural fluid Gram stains as outlined above. C T scan of the chest performed earlier today shows large left pleural effusion with smaller right-side d pleural effusion; near collapse of the left lower lobe with partial collapse of left upper lobe and right lower lobe also being present. IMPRESSION: Peritonitis and mediastinitis status post esophageal perforation with operative repair a nd incision and drainage: Cultures are showing rare growth of Staphylococcus aureus, which can be pr esent in this setting due to oropharyngeal colonization with Staphylococcus aureus. No discrete risk factors for methicillin resistant Staphylococcus aureus. The patient is also at risk for typical or opharyngeal susie given association with esophageal perforation. This includes potential for Patricia . Anaerobic susie also possible. RECOMMENDATIONS: 1. Agree with empiric vancomycin. I have asked lab to perform PBP on Staph aureus isolate as if no evidence of MRSA, will allow for discontinuation of vancomycin. 2. Continue ertapenem 1 g IV daily. 3. Continue fluconazole 200 mg IV daily. 4. Follow up cultures with antibiotic adjustment accordingly. 5. Continued ICU supportive care and clinical monitoring. Thank you for this consultation. We will continue to follow the patient with you. /[id number]/MODL
--- NOTE | 2018-10-28 06:08 | GOP ---
DATE OF OPERATION: 10/27/2018 SURGEON: Shun Leon MD, FACS ANESTHESIA: Local. PREOPERATIVE DIAGNOSIS: 1. Bilateral pleural effusions. 2. Status post repair of distal esophageal perforation (transabdominal), with fundoplication. POSTOPERATIVE DIAGNOSIS: PROCEDURE PERFORMED: Placement of bilateral closed tube thoracostomy. FINDINGS: Approximately 1500 mL serous cloudy left pleural effusion evacuated. Specimen submitted for aerobes and anaerobes. Right bloody pleural effusion, smaller in volume. Culture submitted for aerobes and anaerobes as well as fungi. ESTIMATED BLOOD LOSS: 50-100 mL. DESCRIPTION OF PROCEDURE: After informed consent was obtained from the patient' s , the patient was positioned and the chest sterilely prepped and draped on both sides. Before proceeding, a time-out identification of the patient was performed. The left chest was drained first as follows: 1% lidocaine with epinephrine was used to infiltrate the 5th intercostal space and periosteum of the 5th rib. A transverse incision was made in the anterior axillary line and blunt dissection used to enter the chest with a large ling of fluid. A 36-Polish chest tube was introduced and advanced without resistance. Fluid was submitted for aerobes, anaerobes, and fungi. A chest tube was secured to the skin with 0 silk suture and attached to a Pleur-Evac. In a similar fashion, the right 5th intercostal space was infiltrated. A transverse incision was made and blunt dissection used to enter the chest cavity. However, there was no lnig of fluid or air on the right side. I extended the incision and inserted a finger and recognized that I was on the caudal side of the diaphragm. The incision was closed with interrupted 0 silk sutures, and I infiltrated the 4th intercostal space anterior axillary line, made a 2nd incision, bluntly entered the chest successfully, and was able to confirm this by digital palpation. A 36-Polish chest tube was introduced and advanced without resistance. This yielded thinner bloody fluid and specimen was submitted for aerobes, anaerobes, and fungi. This was secured to the skin with 0 silk suture. This was attached to a Pleur-Evac. Both were placed to low continuous suction. Postprocedural chest x-ray showed adequate tube placement with improvement in the aeration of the long and small apical pneumothoraces. COMPLICATIONS: Inadvertent entrance of the abdominal cavity via the right thoracostomy incision replaced at a higher level. /[id number]/MODL MTDD
[2018-10-28] MEDS: ERTAPENEM 1 GM in NS 100 ML IV SCH (08:06)
[2018-10-28] MEDS: FLUCONAZOLE/NaCl 200 ML IV SCH (08:39)
[2018-10-28] MEDS: ENOXAPARIN 40 MG/0.4 ML SYR SC SCH (08:46)
[2018-10-28] MEDS: PANTOPRAZOLE SODIUM 40 MG VIAL IVP SCH (08:46)
--- NOTE | 2018-10-28 09:05 | PDINTPN ---
Dispersion Mixer Progress Note Assessment/Plan: Assessment/plan: * Status post esophageal perforation after upper endoscopy with dilatation * Status post repair perforation at GE junction and decompression of stomach * Worsening bilateral infiltrates and left lower lobe atelectasis * Acute respiratory failure-oxygen requirements are stable. * Increasing left pleural effusion -chest tubes in place * Marked elevations in transaminases-etiology which is unclear -will discuss current medications with pharmacy -recheck * Small left pneumothorax, as well as worsening subcutaneous emphysema and pneumomediastinum * History of gastroesophageal reflux disease * Pain-reasonably well controlled -would consider Precedex * Peritonitis-antibiotics per Infectious Disease * VT prophylaxis * Stress ulcer prophylaxis * Disposition-? Subjective: Somewhat uncomfortable. Pain is tolerable. Objective: Vital Signs Temp Pulse Resp BP Pulse Ox 37 C 97 16 114/68 94 10/28/18 08:00 10/28/18 08:00 10/28/18 08:00 10/28/18 08:00 10/28/18 08:00 Microbiology 10/27/18 11:45 Gram Stain - Final Pleural Fluid - Aspirate Body Fluid Culture - Final 10/27/18 11:45 Gram Stain - Final Pleural Fluid - Aspirate Body Fluid Culture - Final Laboratory Results 10/28/18 03:25 10/28/18 03:21 10/27/18 10/28/18 10/29/18 05:59 05:59 05:59 Intake Total 3581 4591 Output Total 1890 3565 Balance 1691 1026 Laboratory Results 10/28/18 03:25 10/28/18 03:21 10/28/18 10/28/18 10/27/18 03:55 03:21 07:15 Patient Temperature 37.0 DEGREES DEGREES 36.7 DEGREES DEGREES pCO2 49 mmHg H mmHg 48 mmHg H mmHg (34 - 38) (34 - 38) pO2 77 mmHg H mmHg 81 mmHg H mmHg (65 - 75) (65 - 75) Total CO2 28 mEq/L H mEq/L 26 mEq/L mEq/L (23 - 27) (23 - 27) ABG pH 7.35 7.32 L (7.35 - 7.45) (7.35 - 7.45) ABG HCO3 26 mEq/L mEq/L 24 mEq/L mEq/L (22 - 26) (22 - 26) ABG O2 Saturation 96 % H % 96 % H % (92 - 95) (92 - 95) ABG Base Excess 0.8 mEq/L mEq/L -2.0 mEq/L mEq/L (-2.5 - 2.5) (-2.5 - 2.5) Total O2 Concentration 4.0 LITERS LITERS 6.0 LITERS LITERS Calcium 7.4 mg/dL L mg/dL (8.5 - 10.4) Magnesium 2.3 mg/dL mg/dL (1.6 - 2.3) Total Bilirubin 0.8 mg/dL mg/dL (0.1 - 1.4) AST 471 IU/L H IU/L (17 - 59) ALT 877 IU/L H IU/L (21 - 72) Alkaline Phosphatase 47 IU/L IU/L (38 - 126) Total Protein 4.6 g/dL L g/dL (6.3 - 8.2) Albumin 2.4 g/dL L g/dL (3.5 - 5.0) 10/27/18 10/25/18 03:20 17:40 Patient Temperature pCO2 pO2 Total CO2 ABG pH ABG HCO3 ABG O2 Saturation ABG Base Excess Total O2 Concentration Calcium 7.5 mg/dL L mg/dL (8.5 - 10.4) Magnesium Total Bilirubin AST 42 IU/L IU/L (17 - 59) ALT 47 IU/L IU/L (21 - 72) Alkaline Phosphatase 56 IU/L IU/L (38 - 126) Total Protein 7.3 g/dL g/dL (6.3 - 8.2) Albumin 4.4 g/dL g/dL (3.5 - 5.0) 10/25/18 20:10 Gram Stain - Final Abdomen - Eswab Anaerobic Culture - Preliminary Staphylococcus Aureus Streptococcus Thermophilus Streptococcus Mitis/Oralis 10/25/18 20:10 Gram Stain - Final Abdomen - Eswab Anaerobic Culture - Preliminary Staphylococcus Aureus Chest [id number] by myself. OG tube in place. There is platelike atelectasis on the right. There is a consolidation pleural effusion on the left. Bilateral chest tubes in good position. - Time Spent With Patient Time Spent With Patient: 35 min of time spent with patient, over 1/2 involved coordination of care or counseling. Case discussed with nursing Physical Exam - Physical Exam General Appearance: alert, mild distress EENT: PERRL/EOMI Neck: non-tender Respiratory: crackles (Bibasilar left greater than right), other (On supplemental oxygen), No respiratory distress, No wheezing Cardiac/Chest: normal peripheral pulses, regular rate, rhythm Abdomen: normal bowel sounds, non-tender, soft Male Genitalia: deferred Rectal: deferred Skin: warm/dry, cyanosis Extremities: non-tender Neuro/Psych: alert, normal mood/affect, oriented x 3 ICD10 Worksheet Patient Problems: Problems Problem Status Onset Perforated viscus Acute
--- NOTE | 2018-10-28 10:14 | SOAPPROG ---
SOAP Progress Note Assessment/Plan: Assessment:s/p repair of GE junction tumor POD #3 new onset A-fib with RVR, improved rate with Diltiazem s/p bilateral pleural space drainage, increased LFT's and drop in H/H may be due to liver injury during chest tube placement-will monitor Plan: continue abx per ID monitor H/H, LFT's PICC start TPN tomorrow anticipating nutritional needs may not be met with oral intake by post-op day #5 10/27/18 07:11 10/28/18 10:11 Subjective: resting comfortably/breathing less labored Objective: Vital Signs Temp Pulse Resp BP Pulse Ox 37 C 98 12 101/70 94 10/28/18 08:00 10/28/18 09:41 10/28/18 09:00 10/28/18 09:00 10/28/18 09:00 Microbiology 10/27/18 11:45 Gram Stain - Final Pleural Fluid - Aspirate Body Fluid Culture - Final 10/27/18 11:45 Gram Stain - Final Pleural Fluid - Aspirate Body Fluid Culture - Final Laboratory Results 10/28/18 03:25 10/28/18 03:21 18 18 18 05:59 05:59 05:59 Intake Total 3581 4591 Output Total 1890 3565 Balance 1691 1026 - Pending Discharge Pending Discharge Within 24 Hours: No Pending Discharge Within 48 Hours: No Physical Exam - Physical Exam General Appearance: other (sedated, awakens easily) EENT: other (OGT in place draining bilious fluid) Respiratory: decreased breath sounds, other (CT output diminishing/serous) Cardiac/Chest: tachycardia, irregularly irregular Male Genitalia: other (Taveras cath Day #3) Rectal: deferred Neuro/Psych: normal mood/affect ICD10 Worksheet Patient Problems: Problems Problem Status Onset Perforated viscus Acute
[2018-10-28] MEDS ORDERED: BUPIVACAINE 0.25% 270 ML in PUMP SET 1 EA NB SCH (10:30)
[2018-10-28] MEDS: BENZOCAINE UNIT DOSE SPRAY HURRICAINE MM PRN (16:34)
[2018-10-28] MEDS: CEPACOL LOZENGE PO PRN (16:34)
--- NOTE | 2018-10-28 16:44 | PCMIDPN ---
Assessment/Plan: Assessment/Plan: * Esophageal perforation with peritonitis/mediastinitis status post repair and incision and drainage: Clinically improved post chest tube insertion. Cultures with growth of MSSA and oropharyngeal streptococcal species. Continue ertapenem and fluconazole based on culture findings and propensity for yeast to be present in upper aerodigestive tract. Vancomycin discontinued yesterday based on finding that Staph aureus is MSSA. Continue follow clinical course with ongoing ICU supportive care. Follow up pleural cultures as available. 10/28/18 16:41 Subjective: Patient more comfortable today. Frustrated by presence of OG tube. Objective: Vital Signs Temp Pulse Resp BP Pulse Ox 37 C 100 22 H 111/61 94 10/28/18 16:00 10/28/18 16:00 10/28/18 16:00 10/28/18 16:00 10/28/18 16:00 Microbiology 10/27/18 11:45 Gram Stain - Final Pleural Fluid - Aspirate Body Fluid Culture - Final 10/27/18 11:45 Gram Stain - Final Pleural Fluid - Aspirate Body Fluid Culture - Final Laboratory Results 10/28/18 03:25 10/28/18 03:21 10/27/18 10/28/18 10/29/18 05:59 05:59 05:59 Intake Total 3581 4591 Output Total 1890 3565 Balance 1691 1026 Ertapenem # 3 Fluconazole # 3 Pleural fluid cultures no growth to date Microbiology 10/25/18 20:10 Abdomen - Eswab Gram Stain - Final 10/25/18 20:10 Abdomen - Eswab Anaerobic Culture - Preliminary Staphylococcus Aureus Streptococcus Thermophilus Streptococcus Mitis/Oralis - Physical Exam General Appearance: alert, no apparent distress, non-toxic EENT: other (OG-tube), No scleral icterus, No conjunctival petechiae Respiratory: coarse breath sounds Cardiac/Chest: tachycardia Extremities: No inflammation Abdomen: non-tender, distended Skin: No embolic lesions ICD10 Worksheet Patient Problems: Problems Problem Status Onset Perforated viscus Acute
[2018-10-28] MEDS: PROMETHAZINE HCL 25 MG/ML INJ IVP PRN (18:43)
[2018-10-29] MEDS: NS 1,000 ML IV SCH ×2 (00:03→17:41)
[2018-10-29] MEDS: BENZOCAINE UNIT DOSE SPRAY HURRICAINE MM PRN (00:05)
[2018-10-29] MEDS: PROMETHAZINE HCL 25 MG/ML INJ IVP PRN ×4 (00:20→17:40)
[2018-10-29] MEDS ORDERED: ACETAMINOPHEN 650 MG SUPP PR PRN (01:25)
[2018-10-29 05:03] LABS: PLATELET COUNT 137 10^3/uL (150-400)
--- NOTE | 2018-10-29 06:19 | CPEKG ---
Test Reason : OPEN Blood Pressure : / mmHG Vent. Rate : 166 BPM Atrial Rate : 137 BPM P-R Int : 161 ms QRS Dur : 066 ms QT Int : 266 ms P-R-T Axes : 000 022 056 degrees QTc Int : 443 ms Atrial fibrillation with rapid V-rate d Confirmed by Tony Stafford ([id number]) on 10/29/2018 6:18:40 AM Referred By: Confirmed By:Tony Stafford
[2018-10-29] MEDS: ERTAPENEM 1 GM in NS 100 ML IV SCH (08:17)
[2018-10-29] MEDS: ENOXAPARIN 40 MG/0.4 ML SYR SC SCH (08:17)
[2018-10-29] MEDS: FLUCONAZOLE/NaCl 200 ML IV SCH (08:20)
--- NOTE | 2018-10-29 08:58 | PDINTPN ---
Clearing Supervisor Progress Note Assessment/Plan: Assessment/plan: * Status post esophageal perforation after upper endoscopy with dilatation * Status post repair perforation at GE junction and decompression of stomach * Worsening bilateral infiltrates and left lower lobe atelectasis * Acute respiratory failure-oxygen requirements are stable. * Increasing left pleural effusion -chest tubes in place * Marked elevations in transaminases-etiology which is unclear -improved * Atrial fibrillation-flipped back into normal sinus last night and Cardizem was discontinued * Small left pneumothorax * History of gastroesophageal reflux disease * Pain-reasonably well controlled -continue * Peritonitis-antibiotics per Infectious Disease * VT prophylaxis * Stress ulcer prophylaxis * Disposition-? Subjective: Sitting up in chair. Resting comfortably. Pain well tolerated. Denies breathlessness. Objective: Vital Signs Temp Pulse Resp BP Pulse Ox 36.8 C 77 20 109/71 97 10/29/18 08:00 10/29/18 08:00 10/29/18 08:00 10/29/18 08:00 10/29/18 08:00 Microbiology 10/27/18 11:45 Gram Stain - Final Pleural Fluid - Aspirate Body Fluid Culture - Final 10/27/18 11:45 Gram Stain - Final Pleural Fluid - Aspirate Body Fluid Culture - Final Laboratory Results 10/29/18 04:50 10/29/18 04:50 10/28/18 10/29/18 10/30/18 05:59 05:59 05:59 Intake Total 4591 3119 Output Total 3565 2180 Balance 1026 939 Laboratory Results 10/29/18 04:50 10/29/18 04:50 10/29/18 04:50 Calcium 7.2 mg/dL L mg/dL (8.5 - 10.4) Total Bilirubin 0.9 mg/dL mg/dL (0.1 - 1.4) AST 115 IU/L H IU/L (17 - 59) ALT 472 IU/L H IU/L (21 - 72) Alkaline Phosphatase 47 IU/L IU/L (38 - 126) Total Protein 4.3 g/dL L g/dL (6.3 - 8.2) Albumin 2.2 g/dL L g/dL (3.5 - 5.0) 10/25/18 20:10 Gram Stain - Final Abdomen - Eswab Anaerobic Culture - Preliminary Staphylococcus Aureus Streptococcus Thermophilus Streptococcus Mitis/Oralis Chest [id number] by myself. Chest tube and orogastric tube in good position. Platelike atelectasis on the right. Dense consolidation with effusion on the left - Time Spent With Patient Time Spent With Patient: 35 min of time spent with patient, over 1/2 involved with coordination of care counseling. Case discussed with nursing Physical Exam - Physical Exam General Appearance: alert, no apparent distress EENT: PERRL/EOMI Neck: non-tender, supple Respiratory: crackles (Bibasilar), No respiratory distress, No wheezing Cardiac/Chest: normal peripheral pulses, regular rate, rhythm Abdomen: normal bowel sounds, non-tender, soft Male Genitalia: deferred Rectal: deferred Skin: warm/dry Lymphatic: no adenopathy Extremities: non-tender Neuro/Psych: alert, oriented x 3 ICD10 Worksheet Patient Problems: Problems Problem Status Onset Perforated viscus Acute
[2018-10-29] MEDS: PANTOPRAZOLE SODIUM 40 MG VIAL IVP SCH (09:16)
[2018-10-29] MEDS ORDERED: D10W 1,000 ML IV PRN (10:45)
--- NOTE | 2018-10-29 10:55 | SOAPPROG ---
SOAP Progress Note Assessment/Plan: Assessment:s/p repair of GE junction tumor POD #3 new onset A-fib with RVR, now in sinus rhythm with few PAC's s/p bilateral pleural space drainage, increased LFT's and drop in H/H may be due to liver injury during chest tube placement-H/H stable, LFT's decreasing Plan: continue abx per ID monitor H/H, LFT's PICC start TPN today anticipating nutritional needs may not be met with oral intake by post-op day #5 increase activity and DC CT suction ambulate DC Taveras gastrograffin swallow tomorrow 10/27/18 07:11 10/28/18 10:11 10/29/18 10:55 Subjective: sitting up in chair/resting comfortable with Dilaudid use decreasing Objective: Vital Signs Temp Pulse Resp BP Pulse Ox 36.8 C 95 21 H 125/75 H 95 10/29/18 08:00 10/29/18 10:00 10/29/18 10:00 10/29/18 10:00 10/29/18 10:00 Microbiology 10/27/18 11:45 Gram Stain - Final Pleural Fluid - Aspirate Body Fluid Culture - Final 10/27/18 11:45 Gram Stain - Final Pleural Fluid - Aspirate Body Fluid Culture - Final Laboratory Results 10/29/18 04:50 10/29/18 04:50 10/28/18 10/29/18 10/30/18 05:59 05:59 05:59 Intake Total 4591 3119 Output Total 3565 2180 Balance 1026 939 - Pending Discharge Pending Discharge Within 24 Hours: No Pending Discharge Within 48 Hours: No Physical Exam - Physical Exam General Appearance: mild distress EENT: other (OGT in place) Respiratory: normal breath sounds, decreased breath sounds, pain on movement, other (CT output decreasing, no air leak) Peripheral Pulses: 3+: dorsalis-pedis (R), dorsalis-pedis (L) Abdomen: soft, other (absent bowel sounds, JPs clearing) Male Genitalia: other (Taveras cath in place) Rectal: deferred Skin: warm/dry, pallor Extremities: non-tender Neuro/Psych: alert, normal mood/affect ICD10 Worksheet Patient Problems: Problems Problem Status Onset Perforated viscus Acute
[2018-10-29] MEDS ORDERED: K PHOS 20 MMOL in D5W 250 ML IV ONE (12:00)
--- NOTE | 2018-10-29 15:00 | PCMIDPN ---
Assessment/Plan: Assessment/Plan: * Esophageal perforation with peritonitis/mediastinitis status post repair and incision and drainage: Continue ertapenem and fluconazole targeting oropharyngeal organisms including those that have grown by culture and yeast given this is often present in upper aerodigestive tract. Surgery notes reviewed noting plans for Gastrografin swallow tomorrow. * Fever: Likely associated with peritonitis and mediastinitis. Will plan for blood cultures if fever recurs. * Elevated liver function tests: Improving with time. Likely related to underlying illness versus consideration of association with right-sided chest tube. 10/28/18 16:41 10/29/18 14:56 Subjective: Patient frustrated by OG tube. Objective: Vital Signs Temp Pulse Resp BP Pulse Ox 36.8 C 92 26 H 139/88 H 96 10/29/18 12:00 10/29/18 12:00 10/29/18 12:00 10/29/18 12:00 10/29/18 12:00 Microbiology 10/27/18 11:45 Gram Stain - Final Pleural Fluid - Aspirate Body Fluid Culture - Final 10/27/18 11:45 Gram Stain - Final Pleural Fluid - Aspirate Body Fluid Culture - Final Laboratory Results 10/29/18 04:50 10/29/18 04:50 10/28/18 10/29/18 10/30/18 05:59 05:59 05:59 Intake Total 4591 3119 Output Total 3565 2180 Balance 1026 939 T-max 38.7 degrees Ertapenem # 4 Fluconazole # 4 Pleural fluid cultures no growth Microbiology 10/25/18 20:10 Abdomen - Eswab Gram Stain - Final 10/25/18 20:10 Abdomen - Eswab Anaerobic Culture - Preliminary Staphylococcus Aureus Streptococcus Thermophilus Streptococcus Mitis/Oralis - Physical Exam General Appearance: alert, no apparent distress EENT: other (OG-tube in place), No scleral icterus, No thrush Respiratory: coarse breath sounds Cardiac/Chest: regular rate, rhythm Extremities: No inflammation Abdomen: non-tender, distended (Mild) Skin: No rash - Line/s RUE PICC Lines: No drainage, No erythema ICD10 Worksheet Patient Problems: Problems Problem Status Onset Perforated viscus Acute
[2018-10-29] MEDS: HYDROmorphONE/DILAUDID 1 MG/ML INJ IVP PRN ×2 (17:13→23:06)
[2018-10-29] MEDS: TPN 1 EA BAG IV SCH (21:22)
[2018-10-30 04:40] LABS: PLATELET COUNT 141 10^3/uL (150-400)
[2018-10-30 04:46] LABS: INR 1.15 (0.83-1.16); PROTIME(PATIENT) 14.9 SEC (12.0-15.0)
[2018-10-30] MEDS ORDERED: K PHOS 20 MMOL in D5W 250 ML IV ONE (08:30)
[2018-10-30] MEDS: ENOXAPARIN 40 MG/0.4 ML SYR SC SCH (09:16)
[2018-10-30] MEDS: PANTOPRAZOLE SODIUM 40 MG VIAL IVP SCH (09:17)
[2018-10-30] MEDS: ERTAPENEM 1 GM in NS 100 ML IV SCH (09:18)
[2018-10-30] MEDS: FLUCONAZOLE/NaCl 200 ML IV SCH (09:18)
[2018-10-30] MEDS: POTASSIUM Cl (KCl) 50 ML IV SCH ×2 (09:21→11:01)
--- NOTE | 2018-10-30 11:41 | SOAPPROG ---
SOAP Progress Note Assessment/Plan: Assessment:s/p repair of GE junction tumor POD #5 I reviewed his gastrograffin swallow with Dr. Arthur and he has two small leaks in the distal esophogus that appear to be contained in the distal mediastinum new onset A-fib with RVR, now in sinus rhythm with few PAC's s/p bilateral pleural space drainage, increased LFT's and drop in H/H may be due to liver injury during chest tube placement-H/H stable, LFT's decreasing Plan: discussed placement of a covered stent with Dr. Myers/discussed at length with family continue abx per ID, discussed with Dr. Vazquez monitor H/H, LFT's PICC start TPN today anticipating nutritional needs may not be met with oral intake by post-op day #5 increase activity and DC CT suction ambulate DC Taveras 10/27/18 07:11 10/28/18 10:11 10/29/18 10:55 10/30/18 10:47 Subjective: resting comfortably/post gastrograffin swallow passing some flatus Objective: Vital Signs Temp Pulse Resp BP Pulse Ox 37.8 C 95 24 H 135/83 H 93 10/30/18 04:00 10/30/18 06:00 10/30/18 06:00 10/30/18 06:00 10/30/18 06:00 Microbiology 10/27/18 11:45 Gram Stain - Final Pleural Fluid - Aspirate Body Fluid Culture - Final 10/27/18 11:45 Gram Stain - Final Pleural Fluid - Aspirate Body Fluid Culture - Final Laboratory Results 10/30/18 04:30 10/30/18 04:30 10/29/18 10/30/18 10/31/18 05:59 05:59 05:59 Intake Total 3119 2998 Output Total 2180 3710 Balance 939 -712 PT 14.9 SEC (12.0-15.0) 10/30/18 04:30 INR 1.15 (0.83-1.16) 10/30/18 04:30 - Pending Discharge Pending Discharge Within 24 Hours: No Pending Discharge Within 48 Hours: No Physical Exam - Physical Exam General Appearance: mild distress EENT: other (OGT in place) Neck: non-tender Respiratory: lungs clear, pain on movement Cardiac/Chest: regular rate, rhythm Abdomen: soft, other Skin: other Neuro/Psych: alert, oriented x 3 ICD10 Worksheet Patient Problems: Problems Problem Status Onset Perforated viscus Acute
--- NOTE | 2018-10-30 11:49 | PCMIDPN ---
Assessment/Plan: Assessment: Esophageal perforation-status post operative repair. Gastrografin swallow revealed 2 small persistent areas of leakage. Patient will undergo a membrane stent placement by esophagoscopy later on today. From an infection standpoint we will continue both the ertapenem and fluconazole. Currently has MSSA and oral streptococci in his culture. Plan: 1. Continue both ertapenem and fluconazole empiric coverage. 2. Follow up on results from endoscopic placement of stent. Subjective: Patient is resting in his hospital bed. He appears comfortable. Breathing easy. Continues to have daily fevers. Results of Gastrografin test noted. Objective: Ertapenem # 4 Fluconazole # 4 Vital Signs Temp Pulse Resp BP Pulse Ox 37.8 C 93 22 H 136/88 H 96 10/30/18 04:00 10/30/18 10:00 10/30/18 10:00 10/30/18 10:00 10/30/18 10:00 Microbiology 10/27/18 11:45 Gram Stain - Final Pleural Fluid - Aspirate Body Fluid Culture - Final 10/27/18 11:45 Gram Stain - Final Pleural Fluid - Aspirate Body Fluid Culture - Final Laboratory Results 10/30/18 04:30 10/30/18 04:30 10/29/18 10/30/18 10/31/18 05:59 05:59 05:59 Intake Total 3119 2998 Output Total 9395 9860 Balance 939 -712 - Physical Exam General Appearance: WD/WN, alert, no apparent distress Respiratory: lungs clear, normal breath sounds, No respiratory distress Cardiac/Chest: regular rate, rhythm, No tachycardia Skin: normal color, warm/dry, No rash Neuro/Psych: alert, normal mood/affect, oriented x 3 ICD10 Worksheet Patient Problems: Problems Problem Status Onset Perforated viscus Acute
[2018-10-30] MEDS ORDERED: LR 1,000 ML IV ONE (13:11)
[2018-10-30] MEDS ORDERED: PROPOFOL/EMULSION 500 MG/50 ML BOTTLE IV ONE (13:56)
--- NOTE | 2018-10-30 14:00 | PDGENHP ---
History & Physical Chief Complaint: esophageal leak History of Present Illness: 57 year old male presents for an esophageal stent secondary to an esophageal perforation. Pertinent Past, Social, Family History: See anesthesiology notes. Relevant Physical Exam: HEENT: anicteric. CV: RRR +s1s2. Lungs: CTAB No w/r/ r. Abd: soft, nt, + bs Cardiorespiratory Assessment: ASA 3
--- NOTE | 2018-10-30 14:08 | PDANEPAE ---
ANE History of Present Illness HERE FOR EGD/STENT ANE Past Medical History - Cardiovascular History Hx Hypertension: No Hx Arrhythmias: No Hx Chest Pain: No Hx Coronary Artery / Peripheral Vascular Disease: No Hx CHF / Valvular Disease: No Hx Palpitations: No - Pulmonary History Hx COPD: No Hx Asthma/Reactive Airway Disease: No Hx Recent Upper Respiratory Infection: No Hx Oxygen in Use at Home: No Hx Sleep Apnea: No Sleep Apnea Screening Result - Last Documented: Positive - Endocrine History Hx Diabetes: No - Renal History Hx Renal Disorders: No ANE Review of Systems Review of Systems: ANE Patient History - Allergies Allergies/Adverse Reactions: No Known Allergies Allergy (Unverified 10/25/18 17:32) - Home Medications Home medications: home medication list seen and reviewed Home Medications: Budesonide [Rhinocort Allergy] 1 spray NS DAILY 10/25/18 [Last Taken 10/25/18] Loratadine 10 mg PO DAILY 10/25/18 [Last Taken 10/25/18] Omeprazole 40 mg PO DAILY 10/25/18 [Last Taken 10/25/18] - NPO status NPO Status: no food or drink >8 hours NPO Since - Liquids (Date): 10/25/18 NPO Since - Liquids (Time): 13:00 NPO Since - Solids (Date): 10/25/18 NPO Since - Solids (Time): 13:00 - Anes Hx Anes Hx: no prior problems - Smoking Hx Smoking Status: Never smoked ANE Labs/Vital Signs - Labs Result Diagrams: 10/30/18 04:30 10/30/18 04:30 - Vital Signs Vital Signs: reviewed preoperatively; see RN documention for details Blood Pressure: 145/82 Heart Rate: 91 Respiratory Rate: 29 O2 Sat (%): 93 Height: 182.88 cm Weight: 92.986 kg ANE Physical Exam - Airway Neck exam: FROM Mallampati Score: Class 1 - Pulmonary Pulmonary: no respiratory distress - Cardiovascular Cardiovascular: regular rate and rhythym - ASA Status ASA Status: III ANE Anesthesia Plan Anesthesia Plan: general endotracheal anesthesia
[2018-10-30] MEDS ORDERED: fentaNYL 100 MCG/2 ML INJ ONE (14:09)
--- NOTE | 2018-10-30 14:25 | PDINTPN ---
Conical Mixer Progress Note Assessment/Plan: ASSESSMENT 57 yo male with perforated esophagus and mediastinitis s/p repair 10/26/18 # perforated esophagus, s/p ex lap and repair of GE junction and fundoplication. Still with 3 small leaks on Gastrografin study 10/30/2018 # peritonitis and mediastinitis due to above # AFib with RVR # bilateral pleural effusions s/p surgical chest tubes 10/27/18 # GERD # espophageal stricture s/p dilation 10/25/18 PLAN # GI to place covered stent to help heal residual perforations # chest tubes to -20 cm continuous wall suction # mediastinal drains to bulb suction # continue ertapenem and fluconazole # IV PPI # Feeding - NPO, TPN # Analgesia APAP, oxy # Sedation trazodone qhs prn # Thromboprophylaxis - SQ hep # Head of bed elevated # Ulcer prophylaxis - PPI # Glucose SSI # Skin no skin breakdown # Delirium - delirium precautions ABX 10/25/18 fluconazole, ertapenum 10/15-present EVENTS 09/02/18 intubation, bronchoscopy CX Data reviewed IMAGING I personally reviewed interpreted radiographic images well as formal radiology reads 10/30/2018 chest x-ray right-sided surgical chest tube in place lung parenchyma grossly clear, left-sided surgical chest tube in place with residual loculated effusion, grade data opacification consistent with residual fluid/pleural effusion, OG tube in place Objective: Vital Signs Temp Pulse Resp BP Pulse Ox 38.0 C 91 29 H 145/82 H 93 10/30/18 13:51 10/30/18 14:08 10/30/18 14:08 10/30/18 14:08 10/30/18 14:08 Microbiology 10/27/18 11:45 Gram Stain - Final Pleural Fluid - Aspirate Body Fluid Culture - Final 10/27/18 11:45 Gram Stain - Final Pleural Fluid - Aspirate Body Fluid Culture - Final Laboratory Results 10/30/18 04:30 10/30/18 04:30 10/29/18 10/30/18 10/31/18 05:59 05:59 05:59 Intake Total 3119 2998 Output Total 2180 3710 700 Balance 939 -712 -700 PT 14.9 SEC (12.0-15.0) 10/30/18 04:30 INR 1.15 (0.83-1.16) 10/30/18 04:30 Physical Exam - Physical Exam General Appearance: alert, no apparent distress EENT: other (OG tube in place, secured) Neck: non-tender, full range of motion, supple Respiratory: other (Decreased breath sounds bilateral bases, bilateral chest tubes in place tidal in) Cardiac/Chest: normal peripheral pulses, regular rate, rhythm, No edema Abdomen: normal bowel sounds, non-tender Skin: normal color, warm/dry Extremities: normal range of motion, non-tender Neuro/Psych: no motor/sensory deficits, alert, normal mood/affect, oriented x 3 ICD10 Worksheet Patient Problems: Problems Problem Status Onset Perforated viscus Acute
[2018-10-30] MEDS ORDERED: SUGAMMADEX SODIUM 200 MG/2 ML VIAL IVP ONE (14:57)
--- NOTE | 2018-10-30 15:03 | GIREPORT ---
[facility] Surgical Services - Endoscopy Department Patient Name: Samir Ge Procedure Date: 10/30/2018 2:04 PM Patient Type: Inpatient Attending MD/ ER Physician: Juarez Myers MD Procedure: Upper GI endoscopy Indications: Abnormal UGI series, Esophageal perforation Patient Profile: 57 year old male presents for esophageal stenting secondary to an dista l esophageal perforation. Providers: Juarez Myers MD Medicines: General Anesthesia Complications: No immediate complications. Estimated blood loss: Minimal. Description of Procedure: After obtaining informed consent, the endoscope was passed under direct vision. Throughout the procedure, the patient's blood pressure, pulse, and oxygen saturations were monitored continuously. The Endoscope was intro duced through the mouth, and advanced to the second part of duodenum. The up er GI endoscopy was accomplished without difficulty. The patient tolerated th e procedure well. Findings: One linear esophageal ulcer was found at the gastroesophageal junction. A hiatal hernia was present. Multiple sessile polyps were found on the greater curvature of the stom ach. Biopsies were taken with a cold forceps for histology. The examined duodenum was normal. The GE junction was marked witha paperclip and a 0.035 inch longwier wa s placed into the stomach. The scope was withdrawn and a 23 x 103mm stent was placed. An 18 Fr nasogastric tube was placed through the nares into the esophag us. Under endoscopic guidance (the tube was grased with a snare), the tube was advanced into the stomach. Placement was confirmed by fluoroscopy. Estimated Blood Loss: Estimated blood loss was minimal. Post Op Diagnosis: - Esophageal ulcer. - Hiatal hernia. - Multiple gastric polyps. Biopsied. - Normal examined duodenum. -Nasograstic tube placement was successfully performed. Recommendation: - [facility]. - NPO. - Continue present medications. - Await pathology results. - Thank you for allowing me to participate in the care of your patient. Attending Participation: I personally performed the entire procedure. Juarez Myers MD Juarez Myers MD 10/30/2018 3:02:46 PM This report has been signed electronicallyJuarez Myers MD Number of Addenda: 0 Note Initiated On: 10/30/2018 2:04 PM [email or web address]
--- NOTE | 2018-10-30 16:31 | POSTANESTH ---
Post Anesthetic Evaluation Cardiovascular Status: Normal, Stable Respiratory Status: Normal, Stable Level of Consciousness/Mental Status: Mildly Sleepy, Arousable Pain Control: Adequate, Prn Tx Ordered Nausea/Vomiting Control: Adequate, Prn Tx Ordered Complications Possibly Related to Anesthesia: None Noted
--- NOTE | 2018-10-30 16:38 | ASMTLACE ---
LACE Length of stay for Answers: 2 days current admission Acuity / Level of Answers: Yes Care: Did the patient have an inpatient admission? Comorbidities - select Answers: Other Notes: GERD all that apply # of Emergency department Answers: 1-2 visits in the last 6 months Score: 7 Date Signed: 10/30/2018 04:38 PM Electronically Signed By:VERNA Lamb
--- NOTE | 2018-10-30 16:39 | ASMTCMCOM ---
CM Note CM Note Notes: Pt medically stable for d/c home with friends/family support. Pt does not qualify for [facility] as she has no local PCP and is leaving [place] on 11/02/18. No CM d/c needs identified. Date Signed: 10/30/2018 04:39 PM Electronically Signed By:VERNA Lamb
--- NOTE | 2018-10-30 16:41 | ASMTCMCOM ---
CM Note CM Note Notes: Please disregard previous CM note from 10/30/18 16:39, it does not apply to this pt Date Signed: 10/30/2018 04:40 PM Electronically Signed By:VERNA Lamb
[2018-10-30] MEDS: TPN 1 EA BAG IV SCH (21:48)
[2018-10-31 05:26] LABS: PLATELET COUNT 170 10^3/uL (150-400)
[2018-10-31 05:34] LABS: INR 1.16 (0.83-1.16)
--- NOTE | 2018-10-31 07:17 | SOAPPROG ---
SOKIERSTEN Progress Note Assessment/Plan: Assessment:s/p repair of GE junction perforation POD #6 s/p deployment of esophogeal covered stent POD # 1 new onset A-fib with RVR, now in sinus rhythm with few PAC's s/p bilateral pleural space drainage, cultures no growth thus far Plan: gastrograffin swallow tomorrow continue abx per ID, discussed with Dr. Vazquez monitor H/H, LFT's continue TPN increase activity and DC CT suction ambulate DC Taveras 10/27/18 07:11 10/28/18 10:11 18 10:55 10/30/18 10:47 10/31/18 07:14 Subjective: awake/alert, feeling better Objective: Vital Signs Temp Pulse Resp BP Pulse Ox 37.5 C 91 28 H 137/86 H 96 10/31/18 04:00 10/31/18 06:00 10/31/18 06:00 10/31/18 06:00 10/31/18 06:00 Microbiology 10/27/18 11:45 Gram Stain - Final Pleural Fluid - Aspirate Body Fluid Culture - Final 10/27/18 11:45 Gram Stain - Final Pleural Fluid - Aspirate Body Fluid Culture - Final Laboratory Results 10/31/18 05:15 10/31/18 05:15 10/30/18 10/31/18 11/01/18 05:59 05:59 05:59 Intake Total 2998 1698 Output Total 3710 2270 Balance -712 -572 PT 15.0 SEC (12.0-15.0) 10/31/18 05:15 INR 1.16 (0.83-1.16) 10/31/18 05:15 - Pending Discharge Pending Discharge Within 24 Hours: No Pending Discharge Within 48 Hours: No Physical Exam - Physical Exam General Appearance: alert, mild distress EENT: other (NGT in place) Respiratory: lungs clear, decreased breath sounds Cardiac/Chest: normal peripheral pulses, regular rate, rhythm Abdomen: soft, other (incision o.k.) Skin: warm/dry Neuro/Psych: alert, normal mood/affect, oriented x 3 ICD10 Worksheet Patient Problems: Problems Problem Status Onset Perforated viscus Acute
[2018-10-31] MEDS: ERTAPENEM 1 GM in NS 100 ML IV SCH (08:10)
[2018-10-31] MEDS: PANTOPRAZOLE SODIUM 40 MG VIAL IVP SCH (08:10)
[2018-10-31] MEDS: FLUCONAZOLE/NaCl 200 ML IV SCH (08:10)
[2018-10-31] MEDS: ENOXAPARIN 40 MG/0.4 ML SYR SC SCH (08:10)
--- NOTE | 2018-10-31 08:30 | PDINTPN ---
Customer Marketing Assistant Progress Note Assessment/Plan: ASSESSMENT 57 yo male with perforated esophagus c/b peritonitis and mediastinitis s/p repair 10/26/18, covered eosophageal stent 10/30/18 # perforated esophagus, s/p ex lap and repair of GE junction and fundoplication. Still with 3 small leaks on Gastrografin study 10/30/2018 # peritonitis and mediastinitis due to above # AFib with RVR # bilateral pleural effusions s/p surgical chest tubes 10/27/18 # GERD # esophageal stricture s/p dilation 10/25/18 PLAN # repeat gastrograffin tomorrow, 11/01/[address] Stein # chest tubes to -20 cm continuous wall suction, may remove right tube # mediastinal drains to bulb suction # continue ertapenem and fluconazole # IV PPI # Feeding - NPO, TPN # Analgesia APAP, oxy # Sedation trazodone qhs prn # Thromboprophylaxis - SQ hep # Head of bed elevated # Ulcer prophylaxis - PPI # Glucose SSI # Skin no skin breakdown # Delirium - delirium precautions ABX 10/25/18 fluconazole, ertapenum 10/15-present CX Data reviewed IMAGING I personally reviewed interpreted radiographic images well as formal radiology reads 10/30/2018 chest x-ray right-sided surgical chest tube in place lung parenchyma grossly clear, left-sided surgical chest tube in place with residual loculated effusion, grade data opacification consistent with residual fluid/pleural effusion, OG tube in place 10/30/18 Gastrografin study-2 small leaks in distal esophagus stable trace L apical ptx. stable positioning of chest tubes and mediastinal drains Subjective: Went for EGD yesterday. One ulceration at GE junction. Sessile polyps in stomach biopsied. Stent and NGT placed. Slept well. No n/v, sob, chest pain, fevers. Objective: Vital Signs Temp Pulse Resp BP Pulse Ox 37.5 C 86 22 H 141/85 H 94 10/31/18 04:00 10/31/18 08:00 10/31/18 08:00 10/31/18 08:00 10/31/18 08:00 Microbiology 10/27/18 11:45 Gram Stain - Final Pleural Fluid - Aspirate Body Fluid Culture - Final 10/27/18 11:45 Gram Stain - Final Pleural Fluid - Aspirate Body Fluid Culture - Final Laboratory Results 10/31/18 05:15 10/31/18 05:15 10/30/18 10/31/18 11/01/18 05:59 05:59 05:59 Intake Total 2998 1698 Output Total 1970 3280 250 Balance -712 -572 -250 PT 15.0 SEC (12.0-15.0) 10/31/18 05:15 INR 1.16 (0.83-1.16) 10/31/18 05:15 Physical Exam - Physical Exam General Appearance: alert, no apparent distress EENT: PERRL/EOMI, normal ENT inspection, other (In G-tube in place) Neck: non-tender, full range of motion Respiratory: chest non-tender, lungs clear, normal breath sounds, No respiratory distress Cardiac/Chest: normal peripheral pulses, regular rate, rhythm, other (Bilateral chest tubes in place right chest tube tidal in left no significant movement) Abdomen: other (Incision site clean dry and intact) Skin: normal color, warm/dry Neuro/Psych: no motor/sensory deficits, alert, normal mood/affect, oriented x 3 ICD10 Worksheet Patient Problems: Problems Problem Status Onset Perforated viscus Acute
--- NOTE | 2018-10-31 15:04 | ASMTCMCOM ---
CM Note CM Note Notes: Perf esophagus repair with complications. PT recommending HM with supervision and HC. Patient is A & O , 4 lits of O2, Bilat chest tubes. Lives with his in [place]. 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 to follow. Date Signed: 10/31/2018 03:04 PM Electronically Signed By:Mell Carreno LCSW
--- NOTE | 2018-10-31 16:42 | PCMIDPN ---
Assessment/Plan: Assessment: Esophageal perforation-status post operative repair. Gastrografin swallow revealed 2 small persistent areas of leakage. Patient underwent a membrane stent placement by esophagoscopy yesterday. From an infection standpoint we will continue both the ertapenem and fluconazole. Currently has MSSA and oral streptococci in his culture. If F/U gastrograffin test tomorrow shows no leakage, will probably give 7 days of therapy from that point. Plan: 1. Continue both ertapenem and fluconazole empiric coverage. 2. Follow up on results from endoscopic placement of stent and gastrograffin study. Subjective: Patient is sitting up in his chair in the ICU and doing a piuzzle with his family. Feels improved. Chest tubes still in place. No fevers. Objective: ertapenem # 5 fluconazole # 5 Vital Signs Temp Pulse Resp BP Pulse Ox 37.5 C 92 18 130/52 H 93 10/31/18 04:00 10/31/18 14:00 10/31/18 14:00 10/31/18 14:00 10/31/18 14:00 Microbiology 10/27/18 11:45 Gram Stain - Final Pleural Fluid - Aspirate Body Fluid Culture - Final 10/27/18 11:45 Gram Stain - Final Pleural Fluid - Aspirate Body Fluid Culture - Final Laboratory Results 10/31/18 05:15 10/31/18 05:15 10/30/18 10/31/18 11/01/18 05:59 05:59 05:59 Intake Total 2998 1698 Output Total 3710 2270 250 Balance -712 -572 -250 - Physical Exam General Appearance: WD/WN, alert, no apparent distress, non-toxic Respiratory: lungs clear, normal breath sounds, No respiratory distress Cardiac/Chest: regular rate, rhythm, No tachycardia Skin: normal color, warm/dry, No rash Neuro/Psych: alert, normal mood/affect, oriented x 3 ICD10 Worksheet Patient Problems: Problems Problem Status Onset Perforated viscus Acute
[2018-10-31] MEDS: TPN 1 EA BAG IV SCH (20:12)
[2018-11-01 06:04] LABS: INR 1.15 (0.83-1.16); PROTIME(PATIENT) 14.9 SEC (12.0-15.0)
[2018-11-01 07:04] LABS: PLATELET COUNT 240 10^3/uL (150-400)
--- NOTE | 2018-11-01 08:17 | SOAPPROG ---
SOAP Progress Note Assessment/Plan: Assessment:s/p repair of GE junction perforation POD #7 s/p deployment of esophogeal covered stent POD # 2-left chest drainage remains enteric in appearance new onset A-fib with RVR, now in sinus rhythm with few PAC's s/p bilateral pleural space drainage, cultures no growth thus far Plan: gastrograffin swallow today continue abx per ID, discussed with Dr. Vazquez monitor H/H, LFT's continue TPN continue chest drainage/may need additional intervention if persistant leak confirmed 10/27/18 07:11 18 10:11 18 10:55 10/30/18 10:47 10/31/18 07:14 11/01/18 08:17 Subjective: resting more comfortably/slept poorly last night Objective: Vital Signs Temp Pulse Resp BP Pulse Ox 36.9 C 92 22 H 139/85 H 94 10/31/18 20:00 11/01/18 05:45 11/01/18 05:45 11/01/18 05:45 11/01/18 05:45 Microbiology 10/27/18 11:45 Gram Stain - Final Pleural Fluid - Aspirate Body Fluid Culture - Final 10/27/18 11:45 Gram Stain - Final Pleural Fluid - Aspirate Body Fluid Culture - Final Laboratory Results 11/01/18 05:30 11/01/18 05:30 10/31/18 11/01/18 11/02/18 05:59 05:59 05:59 Intake Total 1698 2634 Output Total 2270 1325 Balance -572 1309 PT 14.9 SEC (12.0-15.0) 11/01/18 05:30 INR 1.15 (0.83-1.16) 11/01/18 05:30 - Pending Discharge Pending Discharge Within 24 Hours: No Pending Discharge Within 48 Hours: No Physical Exam - Physical Exam General Appearance: alert, mild distress EENT: other (NGT in place) Respiratory: lungs clear, decreased breath sounds, other (CT output sero-sang on right, enteric appearing left) Cardiac/Chest: regular rate, rhythm Abdomen: soft, other (incision healing well without signs of infection/minimal TREMAYNE output) Neuro/Psych: alert, normal mood/affect, oriented x 3 ICD10 Worksheet Patient Problems: Problems Problem Status Onset Perforated viscus Acute
[2018-11-01] MEDS: ENOXAPARIN 40 MG/0.4 ML SYR SC SCH (09:34)
[2018-11-01] MEDS: ERTAPENEM 1 GM in NS 100 ML IV SCH (09:35)
[2018-11-01] MEDS: PANTOPRAZOLE SODIUM 40 MG VIAL IVP SCH (09:35)
[2018-11-01] MEDS ORDERED: METOPROLOL TARTRATE 5 MG/5 ML INJ ONE (09:56)
[2018-11-01] MEDS ORDERED: METOPROLOL TARTRATE 5 MG/5 ML INJ IV ONE (10:15)
[2018-11-01] MEDS: FLUCONAZOLE/NaCl 200 ML IV SCH (10:22)
--- NOTE | 2018-11-01 11:11 | PCMIDPN ---
Assessment/Plan: Assessment/Plan: * Esophageal perforation with peritonitis/mediastinitis status post repair and incision and drainage: Esophagram done earlier today shows no evidence of persistent leak. Continue ertapenem and fluconazole with anticipated 7 day course post documentation of leak resolution. Ultimate duration however will be dependent on clinical course over time. Will transition to Unasyn tomorrow if shows continued clinical improvement based on culture findings. * Fever: Occasional elevation in temperature present. Will continue to monitor this now that no evidence of leak present. * Elevated liver function tests: Improved. Continue to follow over time. 11/01/18 11:08 11/01/18 11:10 Subjective: Patient sitting up in chair today. Complains of poor sleep overnight. Objective: Vital Signs Temp Pulse Resp BP Pulse Ox 36.1 C 132 H 31 H 114/87 H 94 11/01/18 10:00 11/01/18 10:00 11/01/18 10:00 11/01/18 10:00 11/01/18 10:00 Microbiology 10/27/18 11:45 Gram Stain - Final Pleural Fluid - Aspirate Body Fluid Culture - Final 10/27/18 11:45 Gram Stain - Final Pleural Fluid - Aspirate Body Fluid Culture - Final Laboratory Results 11/01/18 05:30 11/01/18 05:30 10/31/18 11/01/18 11/02/18 05:59 05:59 05:59 Intake Total 1698 2634 Output Total 2270 1325 Balance -572 1309 Ertapenem # 6 Fluconazole # 6 Pleural fluid cultures no growth - Physical Exam General Appearance: alert, no apparent distress, non-toxic EENT: NG Tube, No scleral icterus, No conjunctival petechiae Respiratory: other (Decreased breath sounds both bases) Cardiac/Chest: tachycardia Extremities: No inflammation Abdomen: non-tender, No distended Skin: No rash - Line/s RUE PICC Lines: No drainage, No erythema ICD10 Worksheet Patient Problems: Problems Problem Status Onset Perforated viscus Acute
[2018-11-01] MEDS: DILTIAZEM HCL/D5W 125 ML IV SCH ×2 (12:01→15:44)
[2018-11-01] MEDS ORDERED: [UNRECOGNIZED DRUG - OTHER] IV ONE (13:00)
[2018-11-01] MEDS ORDERED: AMIODARONE TACHY-6HR INFSN (ORDER 2/3) PREMIX IV ONE (13:00)
--- NOTE | 2018-11-01 14:42 | PDINTPN ---
Dynamo Tender Progress Note Assessment/Plan: ASSESSMENT 57 yo male with perforated esophagus c/b peritonitis and mediastinitis s/p repair 10/26/18, covered eosophageal stent 10/30/18 # perforated esophagus, s/p ex lap and repair of GE junction and fundoplication. Still with 3 small leaks on Gastrografin study 10/30/2018 # peritonitis and mediastinitis due to above # AFib with RVR and hemodynamic instability. Did not respond to IV metoprolol and diltiazem. Amnio bolus plus drip initiated 11/01/2018 # bilateral pleural effusions s/p surgical chest tubes 10/27/18. Left pleural fluid may be loculated # GERD # esophageal stricture s/p dilation 10/25/18 PLAN # immuno bolus post drip started 11/01/2018 # chest tubes to -20 cm continuous wall suction, may remove right tube # mediastinal drains to bulb suction # continue ertapenem and fluconazole, however will need to trend QT interval in the setting of fluconazole and amio use # if left-sided pleural effusion is loculated may consider tPA DNase however defer to Dr. Leon # IV PPI # Feeding - TPN, an oral medications and feeding per Dr. Leon # Analgesia APAP, oxy # Sedation trazodone qhs prn # Thromboprophylaxis - SQ hep # Head of bed elevated # Ulcer prophylaxis - PPI # Glucose SSI # Skin no skin breakdown # Delirium - delirium precautions Patient is critically ill due to multiorgan dysfunction and AFib with RVR hemodynamic instability. Total critical care time spent with patient 60 min which included bedside evaluation and titrating a vasoactive medications with nurse and discussions with specialist ABX 10/25/18 fluconazole, ertapenum 10/15-present CX Data reviewed IMAGING I personally reviewed interpreted radiographic images well as formal radiology reads 10/30/2018 chest x-ray right-sided surgical chest tube in place lung parenchyma grossly clear, left-sided surgical chest tube in place with residual loculated effusion, grade data opacification consistent with residual fluid/pleural effusion, OG tube in place 10/30/18 Gastrografin study-2 small leaks in distal esophagus 10/31/18 stable trace L apical ptx. stable positioning of chest tubes and mediastinal drains 11/01/2018 esophagram with stent in good place. No leak. Subjective: Repeat cervical esophageal Gastrografin study without evidence of leak and stent in good position. No fevers chills or nausea vomiting. However patient did develop AFib with RVR and some concern for hemodynamic instability that did not respond to IV metoprolol or digoxin. Given paroxysmal nature and being in and out of sinus rhythm combined with hemodynamic concerns patient was loaded with amiodarone and placed on protocol. Objective: Vital Signs Temp Pulse Resp BP Pulse Ox 36.1 C 162 H 22 H 102/70 94 11/01/18 10:00 11/01/18 13:58 11/01/18 13:58 11/01/18 13:58 11/01/18 13:58 Microbiology 10/27/18 11:45 Gram Stain - Final Pleural Fluid - Aspirate Body Fluid Culture - Final 10/27/18 11:45 Gram Stain - Final Pleural Fluid - Aspirate Body Fluid Culture - Final Laboratory Results 11/01/18 05:30 11/01/18 05:30 10/31/18 11/01/18 11/02/18 05:59 05:59 05:59 Intake Total 1698 2634 8.6 Output Total 2270 1325 Balance -572 1309 8.6 PT 14.9 SEC (12.0-15.0) 11/01/18 05:30 INR 1.15 (0.83-1.16) 11/01/18 05:30 Physical Exam - Physical Exam General Appearance: alert, no apparent distress, mild distress EENT: PERRL/EOMI, normal ENT inspection, other (NG tube in place) Neck: non-tender, full range of motion Respiratory: chest non-tender, lungs clear, normal breath sounds, other ( Bilateral chest tubes in place) Cardiac/Chest: edema, other (Mediastinal drain in place irregular regular tachycardic to the 180s) Abdomen: normal bowel sounds, non-tender, other (Incision site clean dry and intact) Back: Normal inspection Skin: normal color, warm/dry Extremities: normal range of motion, non-tender Neuro/Psych: no motor/sensory deficits, alert, normal mood/affect, oriented x 3 ICD10 Worksheet Patient Problems: Problems Problem Status Onset Perforated viscus Acute
--- NOTE | 2018-11-01 14:55 | PDGENHP ---
History and Physical History and Physical: CC:I am asked by Dr Leon to assess and assist in the care of this patient with Rapid A Fib during a complicated hospital course for esophageal perforation. HISTORY: I reviewed the patient's medical record here in detail including physicians notes, procedure reports, laboratory data, radiology images, etc. The patient was admitted 10/25 with chest and abdominal pain after an esophageal dilation procedure. He was found to have peritonitis and mediastinitus with a 3 cm tear at the GE junction. He underwent emergent surgical repair to the rent and drainage of the peritoneal and L pleural cavities. Since then he has had trouble with hypoxemic resp failure, leak at the repaired esoph tear requiring a stent, ongoing L pleural effusion w chest tube in place. On he was tachycardic but there was no finding of A Fib. The tachycardia persisted and on 10/28 an ekg was done showing rapid A Fib with rates up to the 180s but good BPs. Later that morning he was back in sinus rythym. This am at around 9:30 he again developed rapid a fib w HRs as high as 170s but good BPs. He remains now this afternoon in rapid atrial fibrillation with good blood pressures, not short of breath, no chest pain. There are no fevers at this time though he did have some fever last night at midnight. He was given a dose of 5 mg IV metoprolol which did not slow his rate down earlier in the day today. A diltiazem drip was attempted and up to 15 milligrams/hour he did not have any significant improvement in heart rate. Since then amiodarone has been added and he is receiving amiodarone loading doses intravenously. At this time he remains in atrial fibrillation and has heart rates and average of 140-150 with a range of 120-160, blood pressures are good. In terms of symptoms he does think he feels some palpitations but no other specific symptoms while he is lying in bed, does feel more exertional dyspnea today than he did yesterday. He has no previous history of heart disease though states that he had an echocardiogram and stress tests done a few years ago after some chest pain episodes. The testing was all apparently unremarkable in he had no further treatment recommendations. 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 There is no history of AFib her arrhythmia otherwise and no family history of arrhythmia that he is aware of. Apparently he has a alcohol it has had bypass surgery. He has no history of thyroid disease and there is no family history of thyroid disease. He has no history of thromboembolic disease, has never smoked, and does not drink any significant alcohol. ROS: He still has some chest and abdominal discomfort related to his surgeries in his mediastinitis and peritonitis but these are gradually improving over time. His NG tube is out today which she is enjoying. He still has chest tubes in place. 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 I have reviewed the list and ordered appropriate medicines. PHYSICAL EXAMINATION: Vital Signs: Currently variable pulse rate between 120-160 average 140s, rates have been as high as 190. Blood pressures are stable, respirations at 20 no fever Grain Unloader Machine: Rapid atrial fibrillation He is breathing on room air with good oxygen saturation Examination: General: alert, oriented, good mentation, relaxed but looks tired Chest tubes in place appear to be well secured Skin: warm, dry, good color, no rash HEENT: normal Neck: no mass or jvd Resps: relaxed Lungs: Diminished breath sounds with some coarse sounds on the left, no wheeze Heart: Rapid and irregular, no murmur Abdomen: soft, nondistended, nontender, +BS Upper Extremities: normal Lower Extremities: no edema, warm No Bleeding or bruising Neurologic: normal speech/language, 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, no focal weakness IV site: looks normal LABORATORY DATA: [place] [id number], with mild anemia Chemistry today shows good electrolytes and renal function, no evidence of acidosis or anion gap, minimal elevation of ALT which is improving with normal bilirubin, and minimal hyperglycemia RADIOLOGY STUDIES: I reviewed to today's chest x-ray which shows elevation of left hemidiaphragm and some left pleural effusion, small left pneumothorax which is slightly larger than yesterday, presence of left chest tube, NG tube, central line at right subclavian, with all devices in good position. There is little fluid in the right minor fissure 12 LEAD EKG: I reviewed tracing from a 12 lead EKG from 4 days ago showing rapid atrial fibrillation with no definite ischemic changes; no other EKGs available to compare ASSESSMENT: *Acute rapid atrial fibrillation, 2nd episode during this hospital stay, with absence of any prior known heart disease or arrhythmia * So far he is tolerating this well without hypotension, ischemic symptoms, or heart failure but the rate is fast enough that he will tolerate it for ever and will need to slow him down * At this time his chads Vasc score is low and can leave him on low-dose anticoagulant, but need to see an echocardiogram to determine this for certain * The cause is most likely infection inflammation pain and stress from his acute illnesses and surgeries, however will want to rule out ischemia, structural heart problems, thyroid disorder * esophageal perforation complicated by peritonitis and mediastinitis with pleural effusions * Overall slowly progressing with excellent care provided but still requiring chest tubes * DVT risk, is on Lovenox and use of mechanical devices * is on acid protection it is list of conditions PLANS: * Well on amiodarone will resume the diltiazem at this time to attempt better rate control; if this is ineffective will add some digoxin * Check TSH * Echocardiogram to assess for structural heart disease * Troponin and EKG to be sure there are no ischemic changes which I doubt but should be tested I reviewed the diagnosis of atrial fibrillation, the nature of able atrial fibrillation, its potential complications, and treatment issues in detail with the patient at the bedside today. I have reviewed the patient's case in detail with Dr. Nava.
[2018-11-01 15:23] LABS: CREATINE KINASE 242 IU/L (0-224)
[2018-11-01] MEDS ORDERED: HEPARIN/DEXTROSE 500 ML IV SCH (18:00)
[2018-11-01] MEDS: HEPARIN 10,000 UNIT/10 ML MDV (1,000 UNIT/ML) IVP PRN (18:20)
[2018-11-01 18:30] LABS: INR 1.19 (0.83-1.16); PROTIME(PATIENT) 15.3 SEC (12.0-15.0)
[2018-11-01 18:37] LABS: PLATELET COUNT 291 10^3/uL (150-400)
[2018-11-01] MEDS: HEPARIN/DEXTROSE 500 ML IV SCH (19:00)
[2018-11-01] MEDS ORDERED: AMIODARONE TACHY-18HR INFSN (ORDER 3/3) IV ONE (19:09)
[2018-11-01] MEDS: TPN 1 EA BAG IV SCH (21:12)
[2018-11-02] MEDS: HEPARIN 10,000 UNIT/10 ML MDV (1,000 UNIT/ML) IVP PRN (01:30)
[2018-11-02] MEDS: HYDROmorphONE/DILAUDID 1 MG/ML INJ IVP PRN ×2 (06:32→08:25)
[2018-11-02] MEDS: HEPARIN/DEXTROSE 500 ML IV SCH ×2 (06:39→18:02)
--- NOTE | 2018-11-02 06:50 | SOAPPROG ---
SOAP Progress Note Assessment/Plan: Assessment:s/p repair of GE junction perforation POD #8 low grade fevers s/p deployment of esophogeal covered stent POD # 3-left chest drainage clearing new onset A-fib with RVR, now in sinus rhythm on amiodarone and diltiazem s/p bilateral pleural space drainage, cultures no growth thus far-left chest drainage suggestive of enteric contamination Plan: check cbc/CMP, TREMAYNE drains removed continue abx per ID, discussed with Dr. Lion continue TPN continue chest drainage chest CT if wbc rising or febrile 10/27/18 07:11 10/28/18 10:11 18 10:55 10/30/18 10:47 10/31/18 07:14 11/01/18 08:17 11/02/18 06:47 Subjective: awake/alert, moderate pain with deep inspiration converted to NSR last PM, tolerating sips of clears Objective: Vital Signs Temp Pulse Resp BP Pulse Ox 37.6 C 77 26 H 121/70 H 91 L 11/02/18 06:00 11/02/18 06:00 11/02/18 06:00 11/02/18 06:00 11/02/18 06:00 Microbiology 10/27/18 11:45 Gram Stain - Final Pleural Fluid - Aspirate Body Fluid Culture - Final 10/27/18 11:45 Gram Stain - Final Pleural Fluid - Aspirate Body Fluid Culture - Final Laboratory Results 11/01/18 18:05 11/01/18 05:30 11/01/18 11/02/18 11/03/18 05:59 05:59 05:59 Intake Total 2634 2375.8 Output Total 1325 1012 Balance 1309 1363.8 PT 15.3 SEC (12.0-15.0) H 11/01/18 18:05 INR 1.19 (0.83-1.16) H 11/01/18 18:05 Physical Exam - Physical Exam General Appearance: alert, mild distress Respiratory: lungs clear, decreased breath sounds (left base) Cardiac/Chest: regular rate, rhythm Abdomen: normal bowel sounds, soft, other (incision o.k., TREMAYNE drains removed) Neuro/Psych: alert, normal mood/affect, oriented x 3 ICD10 Worksheet Patient Problems: Problems Problem Status Onset Perforated viscus Acute
[2018-11-02] MEDS: PANTOPRAZOLE SODIUM 40 MG VIAL IVP SCH (08:25)
--- NOTE | 2018-11-02 08:37 | PDINTPN ---
Assistant Director Of Nursing Progress Note Assessment/Plan: ASSESSMENT 57 yo male with perforated esophagus c/b peritonitis and mediastinitis s/p repair 10/26/18, covered eosophageal stent 10/30/18. Patient now has increasing leukocytosis and a loculated left-sided effusion and moderate to large left-sided pneumothorax. I suspect patient surgical chest tube is clogged and not communicating with the air in his pleural space. # perforated esophagus, s/p ex lap and repair of GE junction and fundoplication and subsequent esophageal stent placed 10/30/18 with resolution of leak. Mediastinal drains out 10/03 # small right-sided pneumothorax # [id number] left-sided pneumothorax. # loculated left-sided pleural effusion # Paroxysmal AFib with RVR with sustained rates of 180 despite IV metop and dilt. Amio and hep gtt started 11/01/18. Converted back to NSR 11/02/18. # bilateral pleural effusions s/p surgical chest tubes 10/27/18. Left pleural fluid may be loculated # GERD # esophageal stricture s/p dilation 10/25/18 PLAN # may consider intrapleural tPA and DNase to unclog tube and help resolve pleural loculation and facilitate evacuation of pneumothorax # however, defer to Dr. Leon for definitive management # continue IV amiodarone till cleared for pills Per Dr. Leon # when able to take p.o. Stop IV amiodarone start oral 400 PO BID x 7 days when cleared for oral pills then will likely stop all together as critical illness resolves # initiate BB as HR and BP allows to be continued at discharged # suggest apixaban 5 mg PO BID at discharges # continue ertapenem and fluconazole, however will need to trend QT interval in the setting of fluconazole and amio use # if left-sided pleural effusion is loculated may consider tPA DNase however defer to Dr. Leon # IV PPI # Feeding - TPN, clear liquid diet, advance per Dr Leon # Analgesia APAP, oxy # Sedation trazodone qhs prn # Thromboprophylaxis - SQ hep # Head of bed elevated # Ulcer prophylaxis - PPI # Glucose SSI # Skin no skin breakdown # Delirium - delirium precautions ABX 10/25/18 fluconazole, ertapenum 10/15-present CX Data reviewed IMAGING I personally reviewed interpreted radiographic images well as formal radiology reads 10/30/2018 chest x-ray right-sided surgical chest tube in place lung parenchyma grossly clear, left-sided surgical chest tube in place with residual loculated effusion, grade data opacification consistent with residual fluid/pleural effusion, OG tube in place 10/30/18 Gastrografin study-2 small leaks in distal esophagus 10/31/18 stable trace L apical ptx. stable positioning of chest tubes and mediastinal drains 11/01/2018 esophagram with stent in good place. No leak. 11/02/2018 CT chest moderate left-sided pneumothorax with loculated effusion. The chest tube does not appear to communicate with pneumothorax. Small right- sided effusion. Minimal air in mediastinum. 11/02/18 08:32 11/02/18 10:45 11/02/18 17:57 Subjective: Afib w RVR with rates sustained in 180s despite IV metoprolol and diltiazem. IV amio and heparin started yesterday. Converted to NSR around 0000, some bradycardia this AM and dilt stopped. TREMAYNE drains removed. Objective: Vital Signs Temp Pulse Resp BP Pulse Ox 37.6 C 77 26 H 121/70 H 91 L 11/02/18 06:00 11/02/18 06:00 11/02/18 06:00 11/02/18 06:00 11/02/18 06:00 Microbiology 10/27/18 11:45 Gram Stain - Final Pleural Fluid - Aspirate Body Fluid Culture - Final 10/27/18 11:45 Gram Stain - Final Pleural Fluid - Aspirate Body Fluid Culture - Final Laboratory Results 11/02/18 06:55 11/02/18 06:55 11/01/18 11/02/18 11/03/18 05:59 05:59 05:59 Intake Total 2634 2375.8 Output Total 1325 1012 Balance 1309 1363.8 PT 15.3 SEC (12.0-15.0) H 11/01/18 18:05 INR 1.19 (0.83-1.16) H 11/01/18 18:05 Physical Exam - Physical Exam General Appearance: alert, no apparent distress EENT: PERRL/EOMI, normal ENT inspection Neck: non-tender, full range of motion Respiratory: chest non-tender, lungs clear, other (Bilateral chest tubes in place. Left-sided chest tube with purulent drainage) Cardiac/Chest: normal peripheral pulses, regular rate, rhythm, No gallop, No JVD Abdomen: normal bowel sounds, non-tender Skin: normal color, warm/dry, cyanosis Extremities: normal range of motion, non-tender Neuro/Psych: no motor/sensory deficits, alert, normal mood/affect ICD10 Worksheet Patient Problems: Problems Problem Status Onset Perforated viscus Acute
[2018-11-02] MEDS: ERTAPENEM 1 GM in NS 100 ML IV SCH (09:19)
[2018-11-02] MEDS: NS 1,000 ML IV SCH (09:23)
--- NOTE | 2018-11-02 09:31 | HOSPPROG ---
Hospitalist Progress Note Assessment/Plan: DIAGNOSES: *Acute rapid atrial fibrillation, 2 episodes during this admission with no prior history of arrhythmia or heart disease * Has converted to sinus overnight on amiodarone * Is on heparin drip * Unable to obtain echo data due to air and mediastinum * TSH normal, no signs of ischemia * esophageal perforation complicated by peritonitis and mediastinitis with pleural effusions * Overall slowly progressing with excellent care provided but still requiring chest tubes * acute peritonitis, strep and staph species growing in 5 cultures * +flatus, tolerating clear liquids in small amounts * small left pneumothorax with chest tube in place * DVT risk, is on heparin and use of mechanical devices * is on acid protection PLANS: * Continue amiodarone and heparin, would discharge on amiodarone and NOAC with cardiology follow-up, consider outpatient echocardiogram and EKG monitoring and discontinuing those medicines if no recurrent AFib and good echo findings * Continue acid suppression SUBJECTIVE: Currently feeling woozy after getting some narcotic for drain removal +flatus, tolerating clear liquids okay Not short of breath OBJECTIVE Vitals reviewed: T-max 37.9 degrees overnight 37.6 now; Pulse now 80 regular, blood pressure is good respirations good Quality Control Technician, my review: Converted to sinus rhythm around midnight, remains in sinus rhythm in 70s and 80s Exam: alert oriented skin warm dry color ok resps not labored Bilateral chest tubes in place, neither showing any air leak with cough at this time, both at suction at appropriate level lungs diminished coarse breath sounds heart regular abd soft nondistended minimally tender, bowel sounds present limbs warm, no edema iv site ok Laboratory data: TSH normal Troponin normal Minimal elevation of CPK WBC remains elevated 11,000, stable hemoglobin and platelets ALT improved, stable basic metabolic panel Microbiology: No new growth from either blood cultures or pleural fluid cultures which are still pending Imaging: Reviewed today's chest x-ray image, left and right chest tubes remain in position, the little change if any in small left pneumothorax, there is still persists some left hemidiaphragm elevation and left pleural effusion Objective: Vital Signs Temp Pulse Resp BP Pulse Ox 37.6 C 81 19 113/70 92 11/02/18 06:00 11/02/18 08:00 11/02/18 08:00 11/02/18 08:00 11/02/18 08:00 Microbiology 10/27/18 11:45 Gram Stain - Final Pleural Fluid - Aspirate Body Fluid Culture - Final 10/27/18 11:45 Gram Stain - Final Pleural Fluid - Aspirate Body Fluid Culture - Final Laboratory Results 11/02/18 06:55 11/02/18 06:55 11/01/18 11/02/18 11/03/18 06:59 06:59 06:59 Intake Total 2634 2375.8 Output Total 1325 1012 Balance 1309 1363.8 PT 15.3 SEC (12.0-15.0) H 11/01/18 18:05 INR 1.19 (0.83-1.16) H 11/01/18 18:05 - Time Spent With Patient Time Spent with Patient: greater than 35 minutes Time Spent with Patient: Greater than 35 minutes spent on this patients care, greater than 50% of time spent counseling, educating, and coordinating care regarding the above mentioned plan. ICD10 Worksheet Patient Problems: Problems Problem Status Onset Perforated viscus Acute
--- NOTE | 2018-11-02 10:46 | PCMIDPN ---
Assessment/Plan: 1. Esophageal perforation with peritonitis and mediastinitis status post exploratory laparotomy with repair on October 26, complicated by esophageal leak requiring an esophageal stent on October 30 with no evidence of persistent leak by recent esophagram: Agree that turbid debris emanating from left chest tube is concerning, as well as concomitant leukocytosis. Patient will have CTs of the chest, abdomen, and pelvis to look for underlying abscess development or empyema. Fluconazole was discontinued yesterday in the setting of concomitant amiodarone use and concern for QTC prolongation. That being said, given patient risk of empyema and abscess, feel that it is prudent to add back anti fungal coverage pending further evaluation as above. Therefore, will start Micafungin. Will also change ertapenem to Unasyn, which should be excellent coverage for the organisms obtained in previous cultures. This was all explained to the patient and his today, who expressed understanding. 2. History of elevated liver function tests: Resolving. Over 25 min spent with this patient today. 11/02/18 10:49 Subjective: TREMAYNE drained pulled this morning. Subsequently, patient had some abdominal cramping which has resolved. Denies nausea or vomiting. No diarrhea. Has some discomfort taking a deep breath. Purulent drainage from left chest tube has been noted in past 48 hr by nursing staff. Objective: Ertapenem 1 g IV daily day 7 Status post 6 days of fluconazole Vital Signs Temp Pulse Resp BP Pulse Ox 37.6 C 76 16 124/72 H 92 11/02/18 06:00 11/02/18 10:00 11/02/18 10:00 11/02/18 10:00 11/02/18 10:00 Microbiology 10/27/18 11:45 Gram Stain - Final Pleural Fluid - Aspirate Body Fluid Culture - Final 10/27/18 11:45 Gram Stain - Final Pleural Fluid - Aspirate Body Fluid Culture - Final Laboratory Results 11/02/18 06:55 11/02/18 06:55 11/01/18 11/02/18 11/03/18 05:59 05:59 05:59 Intake Total 2634 2375.8 Output Total 1325 1012 Balance 1309 1363.8 October 29 blood cultures x2 negative October 25 abdominal cultures with MSSA, strep mitis and strep thermophilus - Physical Exam General Appearance: alert, other (No thrush) EENT: No thrush Respiratory: other (Bilateral chest tubes in place, purulent debris noted layering in left chest tube ) Cardiac/Chest: regular rate, rhythm, No irregularly irregular Extremities: other (PICC line right upper extremity looks okay) Abdomen: non-tender, soft, other (Ex lap incision with andrea in place, minimal surrounding erythema that is appropriate.) Skin: No rash ICD10 Worksheet Patient Problems: Problems Problem Status Onset Perforated viscus Acute
[2018-11-02] MEDS ORDERED: AMPICILLIN/SULBACTAM 3 GM in NS 100 ML IV SCH (11:00)
[2018-11-02] MEDS ORDERED: MICAFUNGIN NA 100 MG in NS 100 ML IV SCH (11:00)
[2018-11-02] MEDS ORDERED: IOPAMIDOL (ISOVUE-300) 100 ML BTL ONE (12:56)
[2018-11-02] MEDS: AMPICILLIN/SULBACTAM 3 GM in NS 100 ML IV SCH ×3 (14:07→23:56)
[2018-11-02] MEDS: MICAFUNGIN NA 100 MG in NS 100 ML IV SCH (14:09)
[2018-11-02] MEDS: TPN 1 EA BAG IV SCH (21:00)
[2018-11-03] MEDS: AMPICILLIN/SULBACTAM 3 GM in NS 100 ML IV SCH ×3 (05:08→18:26)
[2018-11-03] MEDS: AMIODARONE HCL 200 ML IV SCH ×2 (05:08→16:53)
[2018-11-03] MEDS: HEPARIN/DEXTROSE 500 ML IV SCH (05:08)
[2018-11-03 05:35] LABS: PLATELET COUNT 318 10^3/uL (150-400)
[2018-11-03] MEDS: HEPARIN 10,000 UNIT/10 ML MDV (1,000 UNIT/ML) IVP PRN ×2 (06:18→18:13)
--- NOTE | 2018-11-03 07:29 | SOAPPROG ---
SOAP Progress Note Assessment/Plan: Assessment:s/p repair of GE junction perforation POD #9 low grade fevers + rising wbc s/p deployment of esophogeal covered stent POD # 4-left chest drainage clearing but CT shows hydropneumothorax new onset A-fib with RVR, now in sinus rhythm on amiodarone and diltiazem Plan: check cbc/CMP, TREMAYNE drains removed continue abx per ID, discussed with Dr. Loin continue TPN replace left chest tube with right angle tube/second straight tube + reculture 10/27/18 07:11 18 10:11 18 10:55 10/30/18 10:47 10/31/18 07:14 11/01/18 08:17 11/02/18 06:47 11/03/18 07:29 Subjective: awake/slept poorly, pain well controlled Objective: Vital Signs Temp Pulse Resp BP Pulse Ox 37.0 C 84 24 H 139/82 H 91 L 11/03/18 06:00 11/03/18 06:00 11/03/18 06:00 11/03/18 06:00 11/03/18 06:00 Microbiology 10/27/18 11:45 Gram Stain - Final Pleural Fluid - Aspirate Body Fluid Culture - Final 10/27/18 11:45 Gram Stain - Final Pleural Fluid - Aspirate Body Fluid Culture - Final Laboratory Results 11/03/18 04:51 11/03/18 04:51 11/02/18 11/03/18 11/04/18 05:59 05:59 05:59 Intake Total 2375.8 4904 Output Total 1012 1650 Balance 1363.8 3254 PT 15.3 SEC (12.0-15.0) H 11/01/18 18:05 INR 1.19 (0.83-1.16) H 11/01/18 18:05 - Pending Discharge Pending Discharge Within 24 Hours: No Pending Discharge Within 48 Hours: No Physical Exam - Physical Exam General Appearance: mild distress Respiratory: lungs clear, decreased breath sounds Cardiac/Chest: regular rate, rhythm, other (CT output serous/no air leak) Abdomen: soft, other (incision healing well) Male Genitalia: deferred Rectal: deferred Skin: warm/dry Neuro/Psych: normal mood/affect, oriented x 3, cognition abnormalities ICD10 Worksheet Patient Problems: Problems Problem Status Onset Perforated viscus Acute
[2018-11-03] MEDS: NS 1,000 ML IV SCH (08:52)
--- NOTE | 2018-11-03 09:55 | PCMIDPN ---
Assessment/Plan: 1. Esophageal perforation with peritonitis and mediastinitis status post exploratory laparotomy with repair on October 26, complicated by esophageal leak requiring an esophageal stent on October 30 with no evidence of persistent leak by recent esophagram: CT scans reviewed this morning with Dr. Arthur. Am concerned that patient will ultimately require VATS moving forward for the loculated effusion on the left side. For now, plan is to have another chest tube placed on the left, with repeat pleural fluid cultures. Continue Unasyn and Micafungin as is for now. Subjective: Patient's white blood cell count unfortunately continues to go the wrong direction. CT scans show bilateral pneumothoraces, left greater than right, with loculated pleural effusion on the left side. Plan is for another chest tube placement on the left today. Patient expressed frustration today about the setbacks. No significant diarrhea. No nausea or vomiting. Abdominal cramping after TREMAYNE drain removed yesterday has resolved. Objective: Unasyn 3 g IV q.6 hours day 1 (antibiotics day 8) Micafungin 100 mg IV daily day 2 (anti fungal day 8) T-max 37.6 degrees Vital Signs Temp Pulse Resp BP Pulse Ox 37.0 C 84 24 H 139/82 H 91 L 11/03/18 06:00 11/03/18 06:00 11/03/18 06:00 11/03/18 06:00 11/03/18 06:00 Microbiology 10/27/18 11:45 Gram Stain - Final Pleural Fluid - Aspirate Body Fluid Culture - Final 10/27/18 11:45 Gram Stain - Final Pleural Fluid - Aspirate Body Fluid Culture - Final Laboratory Results 11/03/18 04:51 11/03/18 04:51 11/02/18 11/03/18 11/04/18 05:59 05:59 05:59 Intake Total 2375.8 4904 Output Total 1012 1650 Balance 1363.8 3254 - Physical Exam General Appearance: alert, no apparent distress EENT: pharynx normal, No thrush Respiratory: other (Bilateral chest tubes in place. Diminished breath sounds lung bases.) Cardiac/Chest: regular rate, rhythm, No friction rub Extremities: other (PICC line right upper extremity looks fine with no swelling or erythema.) Abdomen: non-tender, soft Skin: No rash ICD10 Worksheet Patient Problems: Problems Problem Status Onset Perforated viscus Acute
[2018-11-03] MEDS ORDERED: LIDOCAINE 1% 300 MG/30 ML SDV IF ONE (10:15)
[2018-11-03] MEDS ORDERED: BUPIVACAINE 0.25% 30 ML SDV ID ONE (10:15)
[2018-11-03] MEDS: PANTOPRAZOLE SODIUM 40 MG VIAL IVP SCH (10:28)
[2018-11-03] MEDS: MICAFUNGIN NA 100 MG in NS 100 ML IV SCH (12:37)
[2018-11-03] MEDS ORDERED: PROPOFOL/EMULSION 500 MG/50 ML BOTTLE IV ONE ×3 (12:51→12:52)
[2018-11-03] MEDS ORDERED: fentaNYL 250 MCG/5 ML INJ ONE (12:53)
--- NOTE | 2018-11-03 14:04 | PDINTPN ---
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 Patient now has increasing leukocytosis and a loculated left-sided effusion and moderate to large left-sided pneumothorax. I suspect patient surgical chest tube is clogged and not communicating with the air in his pleural space. # perforated esophagus, s/p ex lap and repair of GE junction and fundoplication and subsequent esophageal stent placed 10/30/18 with resolution of leak. Mediastinal drains out 10/03 # small right-sided pneumothorax # [id number] left-sided pneumothorax. # loculated left-sided pleural effusion # Paroxysmal AFib with RVR with sustained rates of 180 despite IV metop and dilt. Amio and hep gtt started 11/01/18. Converted back to NSR 11/02/18. # bilateral pleural effusions s/p surgical chest tubes 10/27/18. Left pleural fluid may be loculated # GERD # esophageal stricture s/p dilation 10/25/18 PLAN # Dr. Leon to place new surgical chest tube. If this fails may consider intrapleural tPA and DNase to unclog tube and help resolve pleural loculation and facilitate evacuation of pneumothorax # continue IV amiodarone till cleared for pills Per Dr. Leon # when able to take p.o. Stop IV amiodarone start oral 400 PO BID x 6 days when cleared for oral pills then will likely stop all together as critical illness resolves # initiate BB as HR and BP allows to be continued at discharged # suggest apixaban 5 mg PO BID at discharges # continue antibiotics per ID. Will need to follow QT interval given fluconazole and amiodarone # if left-sided pleural effusion is loculated may consider tPA DNase however defer to Dr. Leon # IV PPI # Feeding - TPN, clear liquid diet, advance per Dr Leon # Analgesia APAP, oxy # Sedation trazodone qhs prn # Thromboprophylaxis - SQ hep # Head of bed elevated # Ulcer prophylaxis - PPI # Glucose SSI # Skin no skin breakdown # Delirium - delirium precautions ABX Per ID CX Data reviewed IMAGING I personally reviewed interpreted radiographic images well as formal radiology reads 10/30/2018 chest x-ray right-sided surgical chest tube in place lung parenchyma grossly clear, left-sided surgical chest tube in place with residual loculated effusion, grade data opacification consistent with residual fluid/pleural effusion, OG tube in place 10/30/18 Gastrografin study-2 small leaks in distal esophagus 10/31/18 stable trace L apical ptx. stable positioning of chest tubes and mediastinal drains 11/01/2018 esophagram with stent in good place. No leak. 11/02/2018 CT chest moderate left-sided pneumothorax with loculated effusion. The chest tube does not appear to communicate with pneumothorax. Small right- sided effusion. Minimal air in mediastinum. Subjective: CT chest yesterday with resolving mediastinal pathology however now moderate to large left-sided pneumothorax with loculated effusion. Current chest tube does not appear to be communicating with pneumothorax and appears clogged. Maintained in sinus overnight. Tolerating clears. NPO today for procedure. Unable to take pills per Dr. Leon. Likely tomorrow. No fevers chills nausea vomiting syncope leg swelling Objective: Vital Signs Temp Pulse Resp BP Pulse Ox 37.0 C 84 18 119/82 H 96 11/03/18 06:00 11/03/18 12:00 11/03/18 12:00 11/03/18 12:00 11/03/18 12:00 Microbiology 10/27/18 11:45 Gram Stain - Final Pleural Fluid - Aspirate Body Fluid Culture - Final 10/27/18 11:45 Gram Stain - Final Pleural Fluid - Aspirate Body Fluid Culture - Final Laboratory Results 11/03/18 04:51 11/03/18 04:51 11/02/18 11/03/18 11/04/18 05:59 05:59 05:59 Intake Total 2375.8 4904 Output Total 1012 1650 Balance 1363.8 3254 PT 15.3 SEC (12.0-15.0) H 11/01/18 18:05 INR 1.19 (0.83-1.16) H 11/01/18 18:05 Physical Exam - Physical Exam General Appearance: alert, no apparent distress EENT: PERRL/EOMI, normal ENT inspection Neck: non-tender, full range of motion Respiratory: other (Decreased breath sounds bilaterally. Chest tubes in place. No distress) Cardiac/Chest: normal peripheral pulses, regular rate, rhythm, No edema Abdomen: non-tender, soft, other Back: Normal inspection Skin: normal color, warm/dry Extremities: normal range of motion, non-tender Neuro/Psych: no motor/sensory deficits, alert, normal mood/affect, oriented x 3 ICD10 Worksheet Patient Problems: Problems Problem Status Onset Perforated viscus Acute
--- NOTE | 2018-11-03 14:07 | PDANEPAE ---
ANE History of Present Illness 57 Y/O MALE WITH MEDIASTINITIS, BILATERAL PLEURAL EFFUSIONS AND BILATERAL PNEUMOTHORACES WITH CHEST TUBES PRESENT. EFFUSIONS MAY BE LOCULATED, THEREFORE PLAN IS FOR NEW CHEST TUBE. ANE Past Medical History - Cardiovascular History Hx Hypertension: No Hx Arrhythmias: No Hx Chest Pain: No Hx Coronary Artery / Peripheral Vascular Disease: No Hx CHF / Valvular Disease: No Hx Palpitations: No - Pulmonary History Hx COPD: No Hx Asthma/Reactive Airway Disease: No Hx Recent Upper Respiratory Infection: No Hx Oxygen in Use at Home: No Hx Sleep Apnea: No Sleep Apnea Screening Result - Last Documented: Positive - Endocrine History Hx Diabetes: No - Renal History Hx Renal Disorders: No ANE Review of Systems Review of systems is: negative Review of Systems: - Exercise capacity Exercise capacity: >=4 METS ANE Patient History - Allergies Allergies/Adverse Reactions: No Known Allergies Allergy (Unverified 10/25/18 17:32) - Home Medications Home Medications: Budesonide [Rhinocort Allergy] 1 spray NS DAILY 10/25/18 [Last Taken 10/25/18] Loratadine 10 mg PO DAILY 10/25/18 [Last Taken 10/25/18] Omeprazole 40 mg PO DAILY 10/25/18 [Last Taken 10/25/18] - NPO status NPO Since - Liquids (Date): 10/25/18 NPO Since - Liquids (Time): 13:00 NPO Since - Solids (Date): 10/25/18 NPO Since - Solids (Time): 13:00 - Smoking Hx Smoking Status: Never smoked ANE Labs/Vital Signs - Labs Result Diagrams: 11/03/18 04:51 11/03/18 04:51 - Vital Signs Blood Pressure: 119/82 Heart Rate: 84 Respiratory Rate: 18 O2 Sat (%): 96 Height: 182.88 cm Weight: 89.8 kg ANE Physical Exam - Airway Neck exam: FROM Mallampati Score: Class 2 Mouth exam: normal dental/mouth exam - Pulmonary Pulmonary: reduced air movement - Cardiovascular Cardiovascular: regular rate and rhythym - ASA Status ASA Status: IV ANE Anesthesia Plan Anesthesia Plan: MAC
--- NOTE | 2018-11-03 15:18 | POSTOPPROG ---
Post Op Note Date of Operation: 11/03/18 Surgeon: Shun Leon (, FACS) Manager Internal: Dallas Nava MD Anesthesiologist: Lisa Slade MD Anesthesia: Other (Specify) (deep sedation) Pre-op Diagnosis: left pneumothorax/pleural effusion Post-op Diagnosis: same Procedure: placement of left closed tube thoracostomy x 2 Inf/Abcess present in the surg proc area at time of surgery?: Yes Depth: Organ Space Drains: Other (CT #32 Fr x 2)
--- NOTE | 2018-11-03 15:28 | POSTANESTH ---
Post Anesthetic Evaluation Cardiovascular Status: Normal, Stable Respiratory Status: Normal, Stable Level of Consciousness/Mental Status: Can Participate in Eval, Mildly Sleepy, Arousable Pain Control: Adequate, Prn Tx Ordered Nausea/Vomiting Control: Adequate, Prn Tx Ordered Complications Possibly Related to Anesthesia: None Noted
[2018-11-03] MEDS: ACETAMINOPHEN 650 MG/20.3 ML UDCUP PO PRN (17:09)
--- NOTE | 2018-11-03 17:09 | ASMTCMCOM ---
CM Note CM Note Notes: Pt had surgical chest tube placed. PT rec HM with supervision. CM to continue to follow. Plan: TBD Date Signed: 11/03/2018 05:09 PM Electronically Signed By:MILES Watson
--- NOTE | 2018-11-03 17:53 | HOSPPROG ---
Hospitalist Progress Note Assessment/Plan: DIAGNOSES: *Acute rapid atrial fibrillation, 2 episodes during this admission with no prior history of arrhythmia or heart disease (previous normal echos and stress, holter) * Has converted to sinus on amiodarone * Is on heparin drip * Unable to obtain echo data due to air in mediastinum * TSH normal, no signs of ischemia * esophageal perforation complicated by peritonitis and mediastinitis with pleural effusions (perf occured during esoph dilation for stricture) * Status post surgical repair of perforation and exploration clean out of mediastinum and perineum * Required esophageal stenting for some small leak at the perforation site on room repeat radiologic study * left pneumothorax and effusion * was not adequately draining with chest tube so has required placement of 2nd chest tube which is doing better * acute peritonitis, strep and staph species growing in cultures * +flatus, tolerating clear liquids in small amounts * mediastinitis * DVT risk, is on heparin and use of mechanical devices PLANS: * Continue amiodarone and heparin, would discharge on amiodarone and NOAC with cardiology follow-up, consider outpatient echocardiogram and EKG monitoring to determine potential need for ongoing anticoagulation; chads Vasc score would be low overall but no echo dated to determine whether he has valvular disease or not at present * Continue acid suppression * Clear liquids only by mouth for the time being * Acid suppression * Continue chest tubes I reviewed in detail today with Dr. Leo SUBJECTIVE: Currently feeling woozy after getting some narcotic for drain removal +flatus, tolerating clear liquids okay Not short of breath OBJECTIVE Vitals reviewed: Now afebrile with stable vitals Clothing Busheler, my review: Remains in stable sinus rhythm on amiodarone Exam: alert oriented skin warm dry color ok resps not labored Bilateral chest tubes in place, 2 on the left lungs diminished coarse breath sounds heart regular abd soft nondistended minimally tender, bowel sounds present limbs warm, no edema iv site ok Laboratory data: White count remains at 15,000 Hemoglobin slightly decreased today Stable basic metabolic panel Heparin level slightly low this morning Microbiology: No new growth from either blood cultures or pleural fluid cultures which are still pending Imaging: Reviewed today's chest x-ray image, left and right chest tubes remain in position, the little change if any in small left pneumothorax, there is still persists some left hemidiaphragm elevation and left pleural effusion Objective: Vital Signs Temp Pulse Resp BP Pulse Ox 37.0 C 73 14 112/84 H 100 11/03/18 06:00 11/03/18 16:00 11/03/18 16:00 11/03/18 16:00 11/03/18 16:00 Microbiology 10/27/18 11:45 Gram Stain - Final Pleural Fluid - Aspirate Body Fluid Culture - Final Anaerobic Culture - Final 10/27/18 11:45 Gram Stain - Final Pleural Fluid - Aspirate Body Fluid Culture - Final Anaerobic Culture - Final Laboratory Results 11/03/18 04:51 11/03/18 04:51 11/02/18 11/03/18 11/04/18 06:59 06:59 06:59 Intake Total 2375.8 4904 Output Total 1012 1650 Balance 1363.8 3254 PT 15.3 SEC (12.0-15.0) H 11/01/18 18:05 INR 1.19 (0.83-1.16) H 11/01/18 18:05 - Time Spent With Patient Time Spent with Patient: greater than 35 minutes Time Spent with Patient: Greater than 35 minutes spent on this patients care, greater than 50% of time spent counseling, educating, and coordinating care regarding the above mentioned plan. ICD10 Worksheet Patient Problems: Problems Problem Status Onset Perforated viscus Acute
[2018-11-03] MEDS: HYDROmorphONE/DILAUDID 1 MG/ML INJ IVP PRN (21:41)
[2018-11-03] MEDS: TPN 1 EA BAG IV SCH (21:44)
[2018-11-04] MEDS: AMIODARONE HCL 200 ML IV SCH ×4 (00:26→14:44)
[2018-11-04] MEDS: AMPICILLIN/SULBACTAM 3 GM in NS 100 ML IV SCH ×4 (00:26→18:22)
[2018-11-04] MEDS: HYDROmorphONE/DILAUDID 1 MG/ML INJ IVP PRN (02:12)
[2018-11-04] MEDS: NS 1,000 ML IV SCH (04:46)
[2018-11-04 04:50] LABS: PLATELET COUNT 359 10^3/uL (150-400)
--- NOTE | 2018-11-04 08:22 | SOAPPROG ---
SOAP Progress Note Assessment/Plan: Assessment:s/p repair of GE junction perforation POD #10 low grade fevers + declining wbc s/p deployment of esophogeal covered stent POD # 5-left chest drainage clearing/cultures NGSF new onset A-fib with RVR, now in sinus rhythm on amiodarone and diltiazem Plan: check cbc/CMP daily for now continue abx per ID, discussed with Dr. Monzon continue TPN and start full diet if full liquid diet tolerated, will start oral meds selectively 10/27/18 07:11 10/28/18 10:11 10/29/18 10:55 10/30/18 10:47 10/31/18 07:14 11/01/18 08:17 11/02/18 06:47 11/03/18 07:29 11/04/18 12:38 11/04/18 14:25 Subjective: resting comfortably this morning/still having pain left chest with movement, coughing tolerated clear liquids including jello Objective: Vital Signs Temp Pulse Resp BP Pulse Ox 37.7 C 84 23 H 135/78 H 95 11/04/18 08:00 11/04/18 08:00 11/04/18 08:00 11/04/18 08:00 11/04/18 08:00 Microbiology 10/29/18 15:55 Blood Culture - Final Blood 10/29/18 15:40 Blood Culture - Final Blood 11/03/18 16:45 Gram Stain - Final Pleural Fluid - Swab 10/27/18 11:45 Gram Stain - Final Pleural Fluid - Aspirate Body Fluid Culture - Final Anaerobic Culture - Final 10/27/18 11:45 Gram Stain - Final Pleural Fluid - Aspirate Body Fluid Culture - Final Anaerobic Culture - Final Laboratory Results 11/04/18 04:33 11/03/18 04:51 11/03/18 11/04/18 11/05/18 05:59 05:59 05:59 Intake Total 4904 3948 Output Total 1650 875 Balance 3254 3073 PT 15.3 SEC (12.0-15.0) H 11/01/18 18:05 INR 1.19 (0.83-1.16) H 11/01/18 18:05 - Pending Discharge Pending Discharge Within 24 Hours: No Pending Discharge Within 48 Hours: No Physical Exam - Physical Exam General Appearance: mild distress Respiratory: lungs clear, decreased breath sounds, pain on movement, other (CT output sero-sanguinous bilateral, no air leak Left) Cardiac/Chest: regular rate, rhythm Abdomen: normal bowel sounds, soft, other (incision healing well without signs of infection) Male Genitalia: deferred, other (no Taveras ) Rectal: deferred Skin: warm/dry Neuro/Psych: alert, normal mood/affect, oriented x 3 ICD10 Worksheet Patient Problems: Problems Problem Status Onset Perforated viscus Acute
[2018-11-04] MEDS ORDERED: morphINE 10 MG/0.5 ML UDSYR PO PRN (08:45)
[2018-11-04] MEDS: ACETAMINOPHEN 650 MG/20.3 ML UDCUP PO PRN ×2 (08:51→20:02)
[2018-11-04] MEDS: HEPARIN/DEXTROSE 500 ML IV SCH ×2 (09:23→20:02)
[2018-11-04] MEDS: PANTOPRAZOLE SODIUM 40 MG VIAL IVP SCH (09:23)
--- NOTE | 2018-11-04 10:22 | PDINTPN ---
Art Preparator Progress Note Assessment/Plan: ASSESSMENT 57 yo male with perforated esophagus c/b peritonitis and mediastinitis s/p repair 10/26/18, covered eosophageal stent 10/30/18 and new L sided chest tubes 11/03/18. Clinical improvement but residual loculated effusion persists # perforated esophagus, s/p ex lap and repair of GE junction and fundoplication and subsequent esophageal stent placed 10/30/18 with resolution of leak. Mediastinal drains out 10/03 # small right-sided pneumothorax # [id number] left-sided pneumothorax, resolved after placement of new chest tubes 11/03/2018 # loculated left-sided pleural effusion # Paroxysmal AFib with RVR with sustained rates of 180 despite IV metop and dilt. Amio and hep gtt started 11/01/18. Converted back to NSR 11/02/18. # bilateral pleural effusions s/p surgical chest tubes 10/27/18. Left chest tube removed and replaced with 2 new surgical chest tubes 11/03/18. # GERD # esophageal stricture s/p dilation 10/25/18 PLAN # consider L sided chest tubes to continuoou negative suction 20 cm # consider R side chest tube removal pending clinical course # if left-sided pleural effusion does not resolve desire to avoid VATS may consider tPA (start with 5 mg in 30 cc NS) given with DNAse/pulmozyme (5 mg in 30 cc sterile water) but defer to Dr. Leon # continue IV amiodarone till cleared for pills Per Dr. Leon # when able to take p.o. Stop IV amiodarone start oral 400 PO BID x 7 days when cleared for oral pills then will likely stop all together as critical illness resolves # initiate BB as HR and BP allows to be continued at discharged # suggest apixaban 5 mg PO BID at discharge for Afib # continue antibiotics per ID. # IV PPI # Feeding - TPN, pureed diet, advance per Dr Leon # Analgesia APAP, oxy # Sedation trazodone qhs prn # Thromboprophylaxis - hep gtt # Head of bed elevated # Ulcer prophylaxis - PPI # Glucose SSI # Skin no skin breakdown # Delirium - delirium precautions ABX Per ID CX Data reviewed IMAGING I personally reviewed interpreted radiographic images well as formal radiology reads 10/30/2018 chest x-ray right-sided surgical chest tube in place lung parenchyma grossly clear, left-sided surgical chest tube in place with residual loculated effusion, grade data opacification consistent with residual fluid/pleural effusion, OG tube in place 10/30/18 Gastrografin study-2 small leaks in distal esophagus 10/31/18 stable trace L apical ptx. stable positioning of chest tubes and mediastinal drains 11/01/2018 esophagram with stent in good place. No leak. 11/02/2018 CT chest moderate left-sided pneumothorax with loculated effusion. The chest tube does not appear to communicate with pneumothorax. Small right- sided effusion. Minimal air in mediastinum. 11/03/2018 chest x-ray interval placement of 2 left-sided chest tubes. Resolution pneumothorax. Left-sided loculation persist Subjective: L sided chest tube removed and culture. 2 new L sided surgical chest tubes placed with resolution of pneumothorax. Some tenderness at chest wall, no headache, no syncope, no worsening leg swelling, no rash. maintained in NSR Objective: Vital Signs Temp Pulse Resp BP Pulse Ox 37.7 C 84 23 H 135/78 H 95 11/04/18 08:00 11/04/18 08:00 11/04/18 08:00 11/04/18 08:00 11/04/18 08:00 Microbiology 10/29/18 15:55 Blood Culture - Final Blood 10/29/18 15:40 Blood Culture - Final Blood 11/03/18 16:45 Gram Stain - Final Pleural Fluid - Swab 10/27/18 11:45 Gram Stain - Final Pleural Fluid - Aspirate Body Fluid Culture - Final Anaerobic Culture - Final 10/27/18 11:45 Gram Stain - Final Pleural Fluid - Aspirate Body Fluid Culture - Final Anaerobic Culture - Final Laboratory Results 11/04/18 04:33 11/03/18 04:51 11/03/18 11/04/18 11/05/18 05:59 05:59 05:59 Intake Total 4904 3948 Output Total 1650 875 Balance 3254 3073 PT 15.3 SEC (12.0-15.0) H 11/01/18 18:05 INR 1.19 (0.83-1.16) H 11/01/18 18:05 Physical Exam - Physical Exam General Appearance: alert, no apparent distress EENT: PERRL/EOMI, normal ENT inspection Neck: non-tender, full range of motion Respiratory: other (Bilateral chest tubes in place. Tidal eating. Normal breath sounds) Cardiac/Chest: normal peripheral pulses, regular rate, rhythm, No edema Abdomen: other (Incision site clean dry and intact. No significant tenderness.) Skin: normal color, warm/dry, No cyanosis Neuro/Psych: no motor/sensory deficits, alert, normal mood/affect, oriented x 3 ICD10 Worksheet Patient Problems: Problems Problem Status Onset Perforated viscus Acute
--- NOTE | 2018-11-04 12:14 | HOSPPROG ---
Hospitalist Progress Note Assessment/Plan: DIAGNOSES: *Acute rapid atrial fibrillation, 2 episodes during this admission with no prior history of arrhythmia or heart disease (previous normal echos and stress, holter) * Has converted to sinus on amiodarone * Is on heparin drip * Unable to obtain echo data due to air in mediastinum * TSH normal, no signs of ischemia * esophageal perforation complicated by peritonitis and mediastinitis with pleural effusions (perf occured during esoph dilation for stricture) * Status post surgical repair of perforation and exploration clean out of mediastinum and perineum * Required esophageal stenting for some small leak at the perforation site on room repeat radiologic study * left pneumothorax and effusion * was not adequately draining with chest tube so has required placement of 2nd chest tube which is doing better * acute peritonitis, strep and staph species growing in cultures * +flatus, tolerating clear liquids in small amounts * mediastinitis * DVT risk, is on heparin and use of mechanical devices PLANS: * Continue amiodarone and heparin gtt for now until cleared by surgery for pills * Would discharge on amiodarone and NOAC with cardiology follow-up, consider outpatient echocardiogram and EKG monitoring to determine potential need for ongoing anticoagulation; chads Vasc score would be low overall but no echo dated to determine whether he has valvular disease or not at present * Continue acid suppression * Clear liquids only by mouth for the time being * Acid suppression * Continue chest tubes Subjective: Patient reports no complaints this AM Objective: Vital Signs Temp Pulse Resp BP Pulse Ox 37.7 C 82 22 H 135/78 H 99 11/04/18 08:00 11/04/18 10:00 11/04/18 10:00 11/04/18 10:00 11/04/18 10:00 Microbiology 10/29/18 15:55 Blood Culture - Final Blood 10/29/18 15:40 Blood Culture - Final Blood 11/03/18 16:45 Gram Stain - Final Pleural Fluid - Swab 10/27/18 11:45 Gram Stain - Final Pleural Fluid - Aspirate Body Fluid Culture - Final Anaerobic Culture - Final 10/27/18 11:45 Gram Stain - Final Pleural Fluid - Aspirate Body Fluid Culture - Final Anaerobic Culture - Final Laboratory Results 11/04/18 04:33 11/03/18 04:51 11/03/18 11/04/18 11/05/18 05:59 05:59 05:59 Intake Total 4904 3948 Output Total 3212 241 Balance 3254 3073 PT 15.3 SEC (12.0-15.0) H 11/01/18 18:05 INR 1.19 (0.83-1.16) H 11/01/18 18:05 - Physical Exam Constitutional: chronically ill appearing Eyes: PERRL Ears, Nose, Mouth, Throat: moist mucous membranes Cardiovascular: regular rate and rhythym Respiratory: no respiratory distress, other (chest tube in place) Gastrointestinal: soft, non-tender abdomen Neurologic: AAOx3 Psychiatric: interacting appropriately ICD10 Worksheet Patient Problems: Problems Problem Status Onset Perforated viscus Acute
--- NOTE | 2018-11-04 12:29 | PCMIDPN ---
Assessment/Plan: 1. Esophageal perforation with peritonitis and mediastinitis status post exploratory laparotomy with repair on October 26, complicated by esophageal leak requiring an esophageal stent on October 30 with no evidence of persistent leak by recent esophagram: White blood cell count is down today, and pneumothorax has improved with additional chest tube, but remain concerned that he will ultimately require VATS for the loculated effusion/empyema on the left side. Continue Unasyn and Micafungin. 11/04/18 12:26 Subjective: Patient stable after additional chest tube placement yesterday. No new complaints. Remains frustrated about sluggish progress. Objective: Unasyn 3 g IV q.6 hours day 2 (antibiotics day 9) Micafungin 100 mg IV daily day 3 (antibiotics day 9) T-max 37.7 degrees Vital Signs Temp Pulse Resp BP Pulse Ox 37.7 C 82 22 H 135/78 H 99 11/04/18 08:00 11/04/18 10:00 11/04/18 10:00 11/04/18 10:00 11/04/18 10:00 Microbiology 11/03/18 16:45 Gram Stain - Final Pleural Fluid - Swab 10/29/18 15:55 Blood Culture - Final Blood 10/29/18 15:40 Blood Culture - Final Blood 10/27/18 11:45 Gram Stain - Final Pleural Fluid - Aspirate Body Fluid Culture - Final Anaerobic Culture - Final 10/27/18 11:45 Gram Stain - Final Pleural Fluid - Aspirate Body Fluid Culture - Final Anaerobic Culture - Final Laboratory Results 11/04/18 04:33 11/03/18 04:51 11/03/18 11/04/18 11/05/18 05:59 05:59 05:59 Intake Total 4904 3948 Output Total 1650 875 Balance 3254 3073 Repeat pleural fluid cultures are pending, including fungal cultures - Physical Exam General Appearance: alert, no apparent distress EENT: pharynx normal Respiratory: crackles (Poor inspiratory effort), other (Chest tubes in place bilaterally.) Cardiac/Chest: regular rate, rhythm Extremities: other (PICC line right upper extremity looks fine) Abdomen: non-tender, soft Skin: No rash ICD10 Worksheet Patient Problems: Problems Problem Status Onset Perforated viscus Acute
[2018-11-04] MEDS: MICAFUNGIN NA 100 MG in NS 100 ML IV SCH (13:39)
[2018-11-04] MEDS ORDERED: traZODone 50 MG TAB PO PRN (18:16)
[2018-11-04] MEDS: TPN 1 EA BAG IV SCH (21:03)
[2018-11-04] MEDS: METOPROLOL TARTRATE 25 MG TAB PO SCH (22:25)
[2018-11-05] MEDS: AMPICILLIN/SULBACTAM 3 GM in NS 100 ML IV SCH ×5 (00:38→23:55)
[2018-11-05] MEDS: HEPARIN/DEXTROSE 500 ML IV SCH ×3 (04:29→23:56)
[2018-11-05] MEDS: NS 1,000 ML IV SCH (04:29)
[2018-11-05 05:05] LABS: PLATELET COUNT 425 10^3/uL (150-400)
--- NOTE | 2018-11-05 08:11 | SOAPPROG ---
SOAP Progress Note Assessment/Plan: Assessment:s/p repair of GE junction perforation POD #11 low grade fevers + fluctuating wbc-incomplete evacuation of effusion on CXR s/p deployment of esophogeal covered stent POD # 6-left chest drainage clearing/cultures NGSF new onset A-fib with RVR, now in sinus rhythm on amiodarone and diltiazem Plan: check cbc/CMP daily for now continue abx per ID, discussed with Dr. Monzon continue TPN x 24 hours and continue full diet TPA via CT per Dr. Nava 10/27/18 07:11 10/28/18 10:11 10/29/18 10:55 10/30/18 10:47 10/31/18 07:14 11/01/18 08:17 11/02/18 06:47 11/03/18 07:29 11/04/18 12:38 11/04/18 14:25 11/05/18 08:13 11/05/18 08:16 Subjective: awake and alert/tolerating full liquids Objective: Vital Signs Temp Pulse Resp BP Pulse Ox 37.2 C 89 20 148/80 H 96 11/05/18 08:00 11/05/18 08:00 11/05/18 08:00 11/05/18 08:00 11/05/18 08:00 Microbiology 11/03/18 16:45 Gram Stain - Final Pleural Fluid - Swab 10/29/18 15:55 Blood Culture - Final Blood 10/29/18 15:40 Blood Culture - Final Blood Laboratory Results 11/05/18 04:25 11/03/18 04:51 11/04/18 11/05/18 11/06/18 05:59 05:59 05:59 Intake Total 3948 5388 Output Total 875 1550 Balance 3073 3838 PT 15.3 SEC (12.0-15.0) H 11/01/18 18:05 INR 1.19 (0.83-1.16) H 11/01/18 18:05 - Pending Discharge Pending Discharge Within 24 Hours: No Pending Discharge Within 48 Hours: No Physical Exam - Physical Exam Respiratory: chest non-tender, normal breath sounds, pain on movement Cardiac/Chest: regular rate, rhythm Abdomen: normal bowel sounds, non-tender, soft Male Genitalia: deferred Rectal: deferred Neuro/Psych: alert, normal mood/affect ICD10 Worksheet Patient Problems: Problems Problem Status Onset Perforated viscus Acute
[2018-11-05] MEDS ORDERED: DORNASE ALFA IPL ONE (08:30)
[2018-11-05] MEDS ORDERED: STERILE WATER IPL ONE ×2 (08:30)
[2018-11-05] MEDS ORDERED: ALTEPLASE IPL ONE ×2 (08:30→08:45)
[2018-11-05] MEDS ORDERED: NS IPL ONE (08:45)
[2018-11-05] MEDS ORDERED: PANTOPRAZOLE SODIUM 40 MG TAB PO SCH (09:00)
--- NOTE | 2018-11-05 09:12 | PCMIDPN ---
Assessment/Plan: 1. Esophageal perforation with peritonitis and mediastinitis status post exploratory laparotomy with repair on October 26, complicated by esophageal leak requiring an esophageal stent on October 30 with persistent left-sided loculated effusion/empyema:: To have tPA injected into left chest tube today to see if this facilitate drainage of loculated effusion. Again, suspect he will likely need a VATS/ thoracotomy for evacuation of loculated left effusion/empyema. He has had 10 days of anti fungal therapy, with no evidence of yeast. Discontinue Micafungin. Continue Unasyn as is. 11/05/18 09:11 Subjective: No overnight events. No diarrhea. Having tPA injected into left chest tube today. Objective: Unasyn 3 g IV q.6 hours day 3 (antibacterials day 10) Micafungin 100 mg IV daily day 4 Anti fungal day 10) 37.2 week was T-max 90 degrees 6% on 2 L Vital Signs Temp Pulse Resp BP Pulse Ox 37.2 C 89 20 148/80 H 96 11/05/18 08:00 11/05/18 08:00 11/05/18 08:00 11/05/18 08:00 11/05/18 08:00 Microbiology 11/03/18 16:45 Gram Stain - Final Pleural Fluid - Swab 10/29/18 15:55 Blood Culture - Final Blood 10/29/18 15:40 Blood Culture - Final Blood Laboratory Results 11/05/18 04:25 11/03/18 04:51 11/04/18 11/05/18 11/06/18 05:59 05:59 05:59 Intake Total 0604 2708 Output Total 631 0020 Balance 3073 3838 No new microbiology - Physical Exam General Appearance: alert, no apparent distress ICD10 Worksheet Patient Problems: Problems Problem Status Onset Perforated viscus Acute
[2018-11-05] MEDS: METOPROLOL TARTRATE 25 MG TAB PO SCH ×2 (10:26→21:03)
[2018-11-05] MEDS: PANTOPRAZOLE SODIUM 40 MG VIAL IVP SCH (10:36)
--- NOTE | 2018-11-05 12:28 | PDINTPN ---
Security Strategist Progress Note Assessment/Plan: ASSESSMENT 57 yo male with perforated esophagus c/b peritonitis and mediastinitis s/p repair 10/26/18, covered eosophageal stent 10/30/18 and new L sided chest tubes 11/03/18. Clinical improvement but increasing leukocytosis and left loculated pleural effusion # perforated esophagus, s/p ex lap and repair of GE junction and fundoplication and subsequent esophageal stent placed 10/30/18 with resolution of leak. Mediastinal drains out 10/03. # small right-sided pneumothorax, stable # [id number] left-sided pneumothorax, resolved after placement of new chest tubes 11/03/2018 # loculated left-sided pleural effusion # Paroxysmal AFib with RVR with sustained rates of 180 despite IV metop and dilt. Amio loaded in drip from 11/01-11/05. hep gtt started 11/01/18. Converted back to NSR 11/02/18. Now on oral low-dose beta-brenton # bilateral pleural effusions s/p surgical chest tubes 10/27/18. Left chest tube removed and replaced with 2 new surgical chest tubes 11/03/18. Status post 1 dose of tPA and DNase 11/05/2018. Unfortunately, if fenestrations on chest tubes are not in direct communication/within the loculated fluid collection, intrapleural pharmacologic therapy may be ineffective # GERD # esophageal stricture s/p dilation 10/25/18 PLAN # tPA (5 mg in 30 cc NS) given with DNAse/pulmozyme (5 mg in 30 cc sterile water ). If no significant increase in output will increase to 10 mg of tPA and continue 5 mg of Pulmozyme. Given radiographic imaging, I am concerned that fenestrations on chest tubes may not be within the pleural fluid vest may not be effective. # if 1 more dose of above intervention does not result in clinical improvement may consider VATS however defer to Dr. Leon # continue beta-brenton for paroxysmal atrial fibrillation # suggest apixaban 5 mg PO BID at discharge for Afib to be continued for at least 1 month given chemical cardioversion. Although this is the 1st diagnosis of PH in's atrial fibrillation the setting of illness he had palpitations prior to being admitted in may have been having paroxysmal AFib and higher risk for CVA # continue antibiotics per ID. # lansoprazole PO BID for GI stent and ulceration seen on endoscopy # Feeding - TPN, pureed diet, advance per Dr Leon # Analgesia APAP, oxy # Sedation trazodone qhs prn # Thromboprophylaxis - hep gtt # Head of bed elevated # Ulcer prophylaxis - PPI # Glucose SSI # Skin no skin breakdown # Delirium - delirium precautions ABX Per ID CX Data reviewed IMAGING I personally reviewed interpreted radiographic images well as formal radiology reads 10/30/2018 chest x-ray right-sided surgical chest tube in place lung parenchyma grossly clear, left-sided surgical chest tube in place with residual loculated effusion, grade data opacification consistent with residual fluid/pleural effusion, OG tube in place 10/30/18 Gastrografin study-2 small leaks in distal esophagus 10/31/18 stable trace L apical ptx. stable positioning of chest tubes and mediastinal drains 11/01/2018 esophagram with stent in good place. No leak. 11/02/2018 CT chest moderate left-sided pneumothorax with loculated effusion. The chest tube does not appear to communicate with pneumothorax. Small right- sided effusion. Minimal air in mediastinum. 11/03/2018 chest x-ray interval placement of 2 left-sided chest tubes. Resolution pneumothorax. Left-sided loculation persist 11/05/2018 chest x-ray without pneumothorax. Left-sided lateral loculated pleural effusion persists. 11/05/18 12:20 11/05/18 12:28 11/05/18 12:29 Subjective: Patient feels well. Repeat chest tubes placed 2 days prior still draining. However relatively unchanged appearance of loculated left-sided effusion. Leukocytosis increasing however no fevers or chills or evidence of decompensation. Tolerating pureed diet and liquid medications. Still on TPN. No syncope. Maintained in normal sinus Objective: Vital Signs Temp Pulse Resp BP Pulse Ox 37.2 C 90 24 H 114/57 L 96 11/05/18 08:00 11/05/18 10:00 11/05/18 10:00 11/05/18 10:00 11/05/18 10:00 Microbiology 11/03/18 16:45 Gram Stain - Final Pleural Fluid - Swab 10/29/18 15:55 Blood Culture - Final Blood 10/29/18 15:40 Blood Culture - Final Blood Laboratory Results 11/05/18 04:25 11/03/18 04:51 11/04/18 11/05/18 11/06/18 05:59 05:59 05:59 Intake Total 3948 5388 Output Total 871 1550 Balance 3073 3838 PT 15.3 SEC (12.0-15.0) H 11/01/18 18:05 INR 1.19 (0.83-1.16) H 11/01/18 18:05 Physical Exam - Physical Exam General Appearance: alert, no apparent distress EENT: PERRL/EOMI, normal ENT inspection Neck: non-tender, full range of motion Respiratory: chest non-tender, other (Bilateral chest tubes in place, no retraction, no dyspnea. Clear upper lung clarke) Cardiac/Chest: normal peripheral pulses, regular rate, rhythm, No edema Abdomen: normal bowel sounds, non-tender Skin: normal color, warm/dry, No cyanosis Neuro/Psych: no motor/sensory deficits, alert, normal mood/affect, oriented x 3 ICD10 Worksheet Patient Problems: Problems Problem Status Onset Perforated viscus Acute
--- NOTE | 2018-11-05 12:47 | HOSPPROG ---
Hospitalist Progress Note Assessment/Plan: DIAGNOSES: *Acute rapid atrial fibrillation, 2 episodes during this admission with no prior history of arrhythmia or heart disease (previous normal echos and stress, holter) * Has converted to sinus on amiodarone * Is on heparin drip * TSH normal, no signs of ischemia * esophageal perforation complicated by peritonitis and mediastinitis with pleural effusions (perf occured during esoph dilation for stricture) * Status post surgical repair of perforation and exploration clean out of mediastinum and perineum * Required esophageal stenting for some small leak at the perforation site on room repeat radiologic study * left pneumothorax and effusion * was not adequately draining with chest tube so has required placement of 2nd chest tube which is doing better * acute peritonitis, strep and staph species growing in cultures * +flatus, tolerating clear liquids in small amounts * mediastinitis * DVT risk, is on heparin and use of mechanical devices PLANS: * Transitioned off of Amiodarone to PO Metoprolol for rate control, continue * Heparin gtt for now * Would discharge on B-Kevin and suggest apixaban 5 mg PO BID at discharge for at least 1 month given chemical cardioversion. * Continue acid suppression * Clear liquids only by mouth for the time being * Acid suppression * Continue chest tubes * Will sign off, please reconsult if further questions or concerns Subjective: Patient reports feeling better this AM Objective: Vital Signs Temp Pulse Resp BP Pulse Ox 37.7 C 81 29 H 123/73 H 100 11/05/18 12:00 11/05/18 12:00 11/05/18 12:00 11/05/18 12:00 11/05/18 12:00 Microbiology 11/03/18 16:45 Gram Stain - Final Pleural Fluid - Swab 10/29/18 15:55 Blood Culture - Final Blood 10/29/18 15:40 Blood Culture - Final Blood Laboratory Results 11/05/18 04:25 11/03/18 04:51 11/04/18 11/05/18 11/06/18 05:59 05:59 05:59 Intake Total 3948 5388 Output Total 875 1550 Balance 3073 3838 PT 15.3 SEC (12.0-15.0) H 11/01/18 18:05 INR 1.19 (0.83-1.16) H 11/01/18 18:05 - Physical Exam Constitutional: chronically ill appearing Eyes: PERRL Ears, Nose, Mouth, Throat: moist mucous membranes Cardiovascular: regular rate and rhythym Respiratory: reduced air movement, other (chest tube in place) Skin: warm Neurologic: AAOx3 Psychiatric: interacting appropriately ICD10 Worksheet Patient Problems: Problems Problem Status Onset Perforated viscus Acute
[2018-11-05] MEDS: TPN 1 EA BAG IV SCH (21:03)
[2018-11-05] MEDS: ACETAMINOPHEN 650 MG/20.3 ML UDCUP PO PRN (22:27)
[2018-11-06] MEDS: AMPICILLIN/SULBACTAM 3 GM in NS 100 ML IV SCH ×4 (05:02→23:27)
[2018-11-06 05:24] LABS: PLATELET COUNT 443 10^3/uL (150-400)
[2018-11-06 05:33] LABS: INR 1.27 (0.83-1.16); PROTIME(PATIENT) 16.1 SEC (12.0-15.0)
[2018-11-06] MEDS: METOPROLOL TARTRATE 25 MG TAB PO SCH ×2 (09:03→21:04)
[2018-11-06] MEDS: LANSOPRAZOLE SUSP 30MG/10ML UDSYR (Adult) TUBE SCH ×2 (09:03→21:05)
[2018-11-06] MEDS: HEPARIN/DEXTROSE 500 ML IV SCH ×2 (09:05→21:00)
[2018-11-06] MEDS ORDERED: PHYTONADIONE 10 MG in NS 50 ML IV ONE (12:44)
--- NOTE | 2018-11-06 12:50 | SOAPPROG ---
SOAP Progress Note Assessment/Plan: Assessment:s/p repair of GE junction perforation POD #11 low grade fevers + fluctuating wbc-incomplete evacuation of effusion on CXR s/p deployment of esophogeal covered stent POD # 6-left chest drainage clearing/cultures NGSF new onset A-fib with RVR, now in sinus rhythm on amiodarone and diltiazem Plan: check cbc/CMP daily for now continue abx per ID, discussed with Dr. Monzon continue TPN x 24 hours and continue full diet TPA via CT per Dr. Nava 10/27/18 07:11 10/28/18 10:11 18 10:55 10/30/18 10:47 10/31/18 07:14 11/01/18 08:17 11/02/18 06:47 11/03/18 07:29 11/04/18 12:38 11/04/18 14:25 11/05/18 08:13 11/05/18 08:16 Subjective: sitting up resting comfortably, tolerating full liquids Objective: Vital Signs Temp Pulse Resp BP Pulse Ox 36.4 C 94 30 H 130/85 H 95 11/06/18 12:00 11/06/18 12:00 11/06/18 12:00 11/06/18 12:00 11/06/18 12:00 Microbiology 11/03/18 16:45 Gram Stain - Final Pleural Fluid - Swab Laboratory Results 11/06/18 05:00 11/06/18 05:00 11/05/18 11/06/18 11/07/18 05:59 05:59 05:59 Intake Total 5388 5093 400 Output Total 1550 3140 1375 Balance 3838 1953 -975 PT 16.1 SEC (12.0-15.0) H 11/06/18 05:00 INR 1.27 (0.83-1.16) H 11/06/18 05:00 - Pending Discharge Pending Discharge Within 24 Hours: No Pending Discharge Within 48 Hours: No Physical Exam - Physical Exam General Appearance: no apparent distress Respiratory: lungs clear, normal breath sounds, decreased breath sounds (left base) Cardiac/Chest: regular rate, rhythm Abdomen: normal bowel sounds, non-tender, soft Neuro/Psych: alert, normal mood/affect, oriented x 3 ICD10 Worksheet Patient Problems: Problems Problem Status Onset Perforated viscus Acute
--- NOTE | 2018-11-06 13:04 | PCMIDPN ---
Assessment/Plan: Assessment: Esophageal perforation-status post operative repair. Esophageal perforation appears contained. However the patient continues to have leukocytosis and concerns of developing empyema. Will continue to cover with IV Unasyn. Follow surgical recommendations as to surgical decortication need or not. Plan: 1. Continue IV ertapenem. 2. Follow up on surgical plans. 11/06/18 15:58 Subjective: Admits to feeling better from a swallowing stand point. Reports dry coughing. IAga, am scribing for, and in the presence of, Keon Vazquez MD. Keon Erwin MD, personally performed the services described in this documentation, as scribed by Aga Gore in my presence, and it is both accurate and complete. Objective: Vital Signs Temp Pulse Resp BP Pulse Ox 36.4 C 94 30 H 130/85 H 95 11/06/18 12:00 11/06/18 12:00 11/06/18 12:00 11/06/18 12:00 11/06/18 12:00 Microbiology 11/03/18 16:45 Gram Stain - Final Pleural Fluid - Swab Laboratory Results 11/06/18 05:00 11/06/18 05:00 11/05/18 11/06/18 11/07/18 05:59 05:59 05:59 Intake Total 5388 5093 400 Output Total 1550 3140 1375 Balance 3836 5148 -246 - Physical Exam General Appearance: alert, no apparent distress Respiratory: other (currently on 1L of O2 via nasal cannula ), No respiratory distress Cardiac/Chest: other (bilateral chest tubes in place ) Skin: No rash - Line/s RUE PICC Lines: No drainage, No erythema ICD10 Worksheet Patient Problems: Problems Problem Status Onset Perforated viscus Acute
--- NOTE | 2018-11-06 13:40 | PDINTPN ---
Merchandising Coordinator Progress Note Assessment/Plan: Assessment: 57 yo male with perforated esophagus c/b peritonitis and mediastinitis s/p repair 10/26/18, covered eosophageal stent 10/30/18 and new L sided chest tubes 11/03/18. Clinical improvement but increasing leukocytosis and left loculated pleural effusion # perforated esophagus, s/p ex lap and repair of GE junction and fundoplication and subsequent esophageal stent placed 10/30/18 with resolution of leak. Mediastinal drains out 10/03. # small right-sided pneumothorax, stable # [id number] left-sided pneumothorax, resolved after placement of new chest tubes 11/03/2018 # loculated left-sided pleural effusion. Left CT had increased drainage last 24 hours, ? related to tPAase/DNAase # Paroxysmal AFib with RVR with sustained rates of 180 despite IV metop and dilt. Amio loaded in drip from 11/01-11/05. hep gtt started 11/01/18. Converted back to NSR 11/02/18. Now on oral low-dose beta-brenton # bilateral pleural effusions s/p surgical chest tubes 10/27/18. Left chest tube removed and replaced with 2 new surgical chest tubes 11/03/18. Status post 1 dose of tPA and DNase 11/05/2018. Unfortunately, if fenestrations on chest tubes are not in direct communication/within the loculated fluid collection, intrapleural pharmacologic therapy may be ineffective # GERD # esophageal stricture s/p dilation 10/25/18 PLAN # tPA (5 mg in 30 cc NS) given with DNAse/pulmozyme (5 mg in 30 cc sterile water ) 11/05. We will hold off on repeating tPA/DNase today # Review CXR, WBC, follow CT output and temp, consider repeat tPA/DNase vs. VATS if not improving. # continue beta-brenton for paroxysmal atrial fibrillation # suggest apixaban 5 mg PO BID at discharge for Afib to be continued for at least 1 month given chemical cardioversion. Although this is the 1st diagnosis of PH in's atrial fibrillation the setting of illness he had palpitations prior to being admitted in may have been having paroxysmal AFib and higher risk for CVA # continue antibiotics per ID. # lansoprazole PO BID for GI stent and ulceration seen on endoscopy # Feeding - TPN, pureed diet, advance per Dr Leon # Analgesia APAP, oxy # Sedation trazodone qhs prn # Thromboprophylaxis - hep gtt # Head of bed elevated # Ulcer prophylaxis - PPI # Glucose SSI # Skin no skin breakdown # Delirium - delirium precautions Plan: 11/06/18 13:57 Subjective: The patient feels about the same, perhaps a bit better. Minimal pain, primarily with coughing. Starting to take some p.o. Objective: Vital Signs Temp Pulse Resp BP Pulse Ox 36.4 C 94 30 H 130/85 H 95 11/06/18 12:00 11/06/18 12:00 11/06/18 12:00 11/06/18 12:00 11/06/18 12:00 Microbiology 11/03/18 16:45 Gram Stain - Final Pleural Fluid - Swab Laboratory Results 11/06/18 05:00 11/06/18 05:00 11/05/18 11/06/18 11/07/18 05:59 05:59 05:59 Intake Total 5388 5093 400 Output Total 1550 3140 1375 Balance 3838 1953 -975 PT 16.1 SEC (12.0-15.0) H 11/06/18 05:00 INR 1.27 (0.83-1.16) H 11/06/18 05:00 Physical Exam - Physical Exam General Appearance: alert, no apparent distress EENT: normal ENT inspection Neck: normal inspection Respiratory: crackles (left base) Cardiac/Chest: regular rate, rhythm, No edema Abdomen: non-tender, soft Skin: normal color, warm/dry Extremities: normal inspection Neuro/Psych: alert, normal mood/affect, oriented x 3 ICD10 Worksheet Patient Problems: Problems Problem Status Onset Perforated viscus Acute
--- NOTE | 2018-11-06 15:16 | ASMTCMCOM ---
CM Note CM Note Notes: PT recommending Hm with out-pt therapy, OT recommending HC. Consultant In Ergonomics And Safety left message for inviting her to a "Family Meeting", she wasn't available today. Date Signed: 11/06/2018 03:15 PM Electronically Signed By:Mell Carreno LCSW
[2018-11-06] MEDS: TPN 1 EA BAG IV SCH (21:04)
[2018-11-06] MEDS: guaiFENesin/CODEINE PHOS 10 ML UDCUP PO PRN (23:24)
[2018-11-07] MEDS: OXYMETAZOLINE 30 ML NASAL SPRAY EACHNARE PRN (00:33)
[2018-11-07] MEDS: HEPARIN/DEXTROSE 500 ML IV SCH ×2 (04:35→16:17)
[2018-11-07] MEDS: ALTEPLASE 2 MG VIAL IVP PRN ×2 (04:54→12:19)
[2018-11-07] MEDS: guaiFENesin/CODEINE PHOS 10 ML UDCUP PO PRN ×2 (06:25→20:15)
[2018-11-07] MEDS: AMPICILLIN/SULBACTAM 3 GM in NS 100 ML IV SCH ×3 (06:27→17:29)
[2018-11-07] MEDS: METOPROLOL TARTRATE 25 MG TAB PO SCH ×2 (08:41→20:22)
[2018-11-07] MEDS: LANSOPRAZOLE SUSP 30MG/10ML UDSYR (Adult) TUBE SCH (08:41)
--- NOTE | 2018-11-07 10:21 | PCMIDPN ---
Assessment/Plan: Assessment: Esophageal perforation-status post operative repair. Esophageal perforation appears contained. However the patient continues to have leukocytosis and concerns of developing empyema. No new white blood cell count today. Chest x- ray shows ongoing pleural fluid collection on left side. Will continue to cover with IV Unasyn. Follow surgical recommendations as to surgical decortication need or not. Plan: 1. Continue IV ertapenem. 2. Follow up on surgical plans. Subjective: Pt states that he is hanging in there. Reports associated coughing particularly in the evening which he attributes to post nasal drip. Also complains of repeatedly saturating his dressing surrounding his left chest tubes. IAga, am scribing for, and in the presence of, Keon Vazquez MD. IKeon MD, personally performed the services described in this documentation, as scribed by Aga Gore in my presence, and it is both accurate and complete. Objective: Vital Signs Temp Pulse Resp BP Pulse Ox 36.9 C 87 24 H 117/67 93 11/07/18 08:00 11/07/18 08:00 11/07/18 08:00 11/07/18 08:00 11/07/18 08:00 Microbiology 11/03/18 16:45 Gram Stain - Final Pleural Fluid - Swab Wound Culture - Final Laboratory Results 11/06/18 05:00 11/06/18 05:00 11/06/18 11/07/18 11/08/18 05:59 05:59 05:59 Intake Total 5093 6275 Output Total 3140 3075 Balance 1953 3200 Microbiology: 10/29/18 Pleural fluid cultures, negative. 10/29/18 Blood cultures x2 sets, negative. 10/25/18 Abdominal cultures with MSSA, strep mitis and strep thermophilus. Imagining studies: 11/07/18 CXR impression: 1) Improving left basilar consolidation. 2) Support devices remain in good position. 3) Tiny right apical pneumothorax unchanged. - Physical Exam General Appearance: alert, no apparent distress Respiratory: No respiratory distress Cardiac/Chest: other (Bilateral chest tubes in place. ) - Line/s RUE PICC Lines: No drainage, No erythema ICD10 Worksheet Patient Problems: Problems Problem Status Onset Perforated viscus Acute
--- NOTE | 2018-11-07 10:40 | SOAPPROG ---
SOAP Progress Note Assessment/Plan: Assessment:s/p repair of GE junction perforation POD #13 low grade fevers + fluctuating wbc-incomplete evacuation of effusion on CXR s/p deployment of esophogeal covered stent POD # 7-left chest drainage clearing/cultures NGSF new onset A-fib with RVR, currently in NSR Plan: CT chest/abd today with oral and IV contrast continue abx per ID, discussed with Dr. Vazquez continue TPN /Heparin drip discussed possible need for left chest decortication 10/27/18 07:11 18 10:11 18 10:55 10/30/18 10:47 10/31/18 07:14 11/01/18 08:17 11/02/18 06:47 11/03/18 07:29 11/04/18 12:38 11/04/18 14:25 11/05/18 08:13 11/05/18 08:16 11/07/18 11:34 Objective: Vital Signs Temp Pulse Resp BP Pulse Ox 36.9 C 87 24 H 117/67 93 11/07/18 08:00 11/07/18 08:00 11/07/18 08:00 11/07/18 08:00 11/07/18 08:00 Microbiology 11/03/18 16:45 Gram Stain - Final Pleural Fluid - Swab Wound Culture - Final Laboratory Results 11/06/18 05:00 11/06/18 05:00 11/06/18 11/07/18 11/08/18 05:59 05:59 05:59 Intake Total 5093 6275 Output Total 3140 3075 Balance 1953 3200 PT 16.1 SEC (12.0-15.0) H 11/06/18 05:00 INR 1.27 (0.83-1.16) H 11/06/18 05:00 - Pending Discharge Pending Discharge Within 24 Hours: No Pending Discharge Within 48 Hours: No Physical Exam - Physical Exam General Appearance: WD/WN, alert, mild distress Respiratory: lungs clear, normal breath sounds Cardiac/Chest: regular rate, rhythm Abdomen: normal bowel sounds, non-tender, soft, other (incision healing without signs of infection) Male Genitalia: deferred Rectal: deferred Back: Normal inspection Skin: warm/dry Extremities: normal range of motion Neuro/Psych: alert, normal mood/affect, oriented x 3 ICD10 Worksheet Patient Problems: Problems Problem Status Onset Perforated viscus Acute
[2018-11-07] MEDS ORDERED: IOPAMIDOL (ISOVUE 370) 100 ML BTL IV ONE (11:23)
--- NOTE | 2018-11-07 11:36 | PDINTPN ---
Sandblast Operator Progress Note Assessment/Plan: Assessment: 57 yo male with perforated esophagus c/b peritonitis and mediastinitis s/p repair 10/26/18, covered eosophageal stent 10/30/18 and new L sided chest tubes 11/03/18. Clinical improvement but increasing leukocytosis and left loculated pleural effusion # perforated esophagus, s/p ex lap and repair of GE junction and fundoplication and subsequent esophageal stent placed 10/30/18 with resolution of leak. Mediastinal drains out 10/03. # small right-sided pneumothorax, stable # [id number] left-sided pneumothorax, resolved after placement of new chest tubes 11/03/2018 # loculated left-sided pleural effusion. Left CT had increased drainage last 2 days # Paroxysmal AFib with RVR with sustained rates of 180 despite IV metop and dilt. Amio loaded in drip from 11/01-11/05. hep gtt started 11/01/18. Converted back to NSR 11/02/18. Now on oral low-dose beta-brenton # bilateral pleural effusions s/p surgical chest tubes 10/27/18. Left chest tube removed and replaced with 2 new surgical chest tubes 11/03/18. Status post 1 dose of tPA and DNase 11/05/2018. Unfortunately, if fenestrations on chest tubes are not in direct communication/within the loculated fluid collection, intrapleural pharmacologic therapy may be ineffective # GERD # esophageal stricture s/p dilation 10/25/18 PLAN # Get CT today, follow WBC, temp, and chest tube output, consider repeat tPA/ DNase vs. percutaneous drainage vs. VATS if not improving. # continue beta-brentno for paroxysmal atrial fibrillation # suggest apixaban 5 mg PO BID at discharge for Afib to be continued for at least 1 month given chemical cardioversion. Although this is the 1st diagnosis of PH in's atrial fibrillation the setting of illness he had palpitations prior to being admitted in may have been having paroxysmal AFib and higher risk for CVA # continue antibiotics per ID. # Change lansoprozole to pepcid # Restart Rhinocort and loratadine. If still having PND, try Sudafed and Afrin. # Feeding - TPN, pureed diet, advance per Dr Leon # Analgesia APAP, oxy # Sedation trazodone qhs prn # Thromboprophylaxis - hep gtt # Head of bed elevated # Ulcer prophylaxis - PPI # Glucose SSI # Skin no skin breakdown # Delirium - delirium precautions 11/07/18 11:36 Subjective: C/O cough due to PND, which exacerbates his chest pain. Strength and appetite improving. Objective: Vital Signs Temp Pulse Resp BP Pulse Ox 36.9 C 87 24 H 117/67 93 11/07/18 08:00 11/07/18 08:00 11/07/18 08:00 11/07/18 08:00 11/07/18 08:00 Microbiology 11/03/18 16:45 Gram Stain - Final Pleural Fluid - Swab Wound Culture - Final Laboratory Results 11/06/18 05:00 11/06/18 05:00 11/06/18 11/07/18 11/08/18 05:59 05:59 05:59 Intake Total 5093 6275 Output Total 3140 3075 Balance 1953 3200 PT 16.1 SEC (12.0-15.0) H 11/06/18 05:00 INR 1.27 (0.83-1.16) H 11/06/18 05:00 Physical Exam - Physical Exam General Appearance: alert, no apparent distress EENT: normal ENT inspection Neck: normal inspection Respiratory: decreased breath sounds (left base), crackles (left base) Cardiac/Chest: regular rate, rhythm, No edema Abdomen: normal bowel sounds, non-tender Skin: normal color, warm/dry Extremities: normal inspection Neuro/Psych: alert, normal mood/affect, oriented x 3 ICD10 Worksheet Patient Problems: Problems Problem Status Onset Perforated viscus Acute
[2018-11-07] MEDS: FLUTICASONE NASAL 120 SPRAYS/16 GM MDI EACHNARE SCH (12:11)
[2018-11-07] MEDS: CETIRIZINE 10 MG TAB PO SCH (12:19)
[2018-11-07] MEDS: FAMOTIDINE 20 MG TAB PO SCH (20:22)
[2018-11-07] MEDS: TPN 1 EA BAG IV SCH (20:26)
[2018-11-07] MEDS: PSEUDOEPHEDRINE LIQ 30 MG/10 ML UDSYR PO PRN (21:28)
[2018-11-08] MEDS: AMPICILLIN/SULBACTAM 3 GM in NS 100 ML IV SCH ×5 (00:12→23:31)
--- NOTE | 2018-11-08 07:38 | SOAPPROG ---
SOAP Progress Note Assessment/Plan: Assessment:s/p repair of GE junction perforation POD #14 low grade fevers + fluctuating wbc-incomplete evacuation of effusion on CXR s/p deployment of esophageal covered stent POD # 8-new finding of persistent leak above the previously placed stent new onset A-fib with RVR, currently in NSR Plan: IR drainage today left chest discussed with Dr. Dukes continue abx per ID, discussed with Dr. Lion continue TPN /Heparin drip-held for procedure discussed covered stent placement with Dr. Myers discussed possible need for left chest decortication 10/27/18 07:11 18 10:11 18 10:55 10/30/18 10:47 10/31/18 07:14 11/01/18 08:17 11/02/18 06:47 11/03/18 07:29 11/04/18 12:38 11/04/18 14:25 11/05/18 08:13 11/05/18 08:16 11/07/18 11:34 11/08/18 09:29 Subjective: awake/ambulatory in [place] Objective: Vital Signs Temp Pulse Resp BP Pulse Ox 37.0 C 91 24 H 127/70 H 92 11/07/18 19:39 11/08/18 06:00 11/08/18 06:00 11/08/18 06:00 11/08/18 06:00 Laboratory Results 11/06/18 05:00 11/08/18 04:35 11/07/18 11/08/18 11/09/18 05:59 05:59 05:59 Intake Total 6275 4128.6 Output Total 3075 4050 Balance 3200 78.6 PT 16.1 SEC (12.0-15.0) H 11/06/18 05:00 INR 1.27 (0.83-1.16) H 11/06/18 05:00 - Pending Discharge Pending Discharge Within 24 Hours: No Pending Discharge Within 48 Hours: No Physical Exam - Physical Exam General Appearance: alert, no apparent distress Cardiac/Chest: regular rate, rhythm Abdomen: non-tender, soft Male Genitalia: deferred Rectal: deferred Back: Normal inspection Skin: warm/dry Extremities: normal inspection Neuro/Psych: alert, normal mood/affect, oriented x 3 ICD10 Worksheet Patient Problems: Problems Problem Status Onset Perforated viscus Acute
--- NOTE | 2018-11-08 08:07 | PCMIDPN ---
Assessment/Plan: Assessment/Plan: * Esophageal perforation with peritonitis/mediastinitis status post repair and incision and drainage plus esophageal stenting: CT yesterday shows small residual esophageal leak and persistent complex left-sided pleural effusion. Plans for additional esophageal stenting today as well as IR placement of drainage catheter into pleural space. Continue Unasyn targeting upper aerodigestive tract susie. * Leukocytosis: No significant interval change. Associated with findings as above. Continue to observe over time with plans for repeat assessment tomorrow. 11/08/18 08:04 11/08/18 08:06 Subjective: Patient without significant complaints other than postnasal drip. Plans for repeat esophageal stenting and IR catheter placement into pleural space for today. Objective: Vital Signs Temp Pulse Resp BP Pulse Ox 37.0 C 91 24 H 127/70 H 92 11/07/18 19:39 11/08/18 06:00 11/08/18 06:00 11/08/18 06:00 11/08/18 06:00 Laboratory Results 11/06/18 05:00 11/08/18 04:35 11/07/18 11/08/18 11/09/18 05:59 05:59 05:59 Intake Total 6275 4128.6 Output Total 3075 4050 600 Balance 3200 78.6 -600 Unasyn # 6, antibiotics # 13 Pleural cultures 11/03/2018 no growth Laboratory Tests 11/01/18 11/06/18 05:30 05:00 Total Bilirubin 0.9 0.5 AST 53 24 ALT 141 H 44 Alkaline Phosphatase [address] with residual esophageal leak and loculated left pleural effusion - Physical Exam General Appearance: alert, no apparent distress EENT: No scleral icterus, No thrush Respiratory: other (Decreased breath sounds left base; minimal output from chest tube) Cardiac/Chest: regular rate, rhythm Extremities: No inflammation Abdomen: non-tender, No distended Skin: No rash - Line/s RUE PICC Lines: No drainage, No erythema ICD10 Worksheet Patient Problems: Problems Problem Status Onset Perforated viscus Acute
[2018-11-08] MEDS: FAMOTIDINE 20 MG TAB PO SCH ×2 (09:07→21:04)
[2018-11-08] MEDS: CETIRIZINE 10 MG TAB PO SCH (09:07)
[2018-11-08] MEDS: METOPROLOL TARTRATE 25 MG TAB PO SCH ×2 (09:08→21:04)
[2018-11-08] MEDS: FLUTICASONE NASAL 120 SPRAYS/16 GM MDI EACHNARE SCH (09:08)
--- NOTE | 2018-11-08 09:58 | PDINTPN ---
Animal Keeper Progress Note Assessment/Plan: Assessment: 57 yo male with perforated esophagus c/b peritonitis and mediastinitis s/p repair 10/26/18, covered eosophageal stent 10/30/18 and new L sided chest tubes 11/03/18. Clinical improvement but increasing leukocytosis and left loculated pleural effusion # perforated esophagus, s/p ex lap and repair of GE junction and fundoplication and subsequent esophageal stent placed 10/30/18. Leak persists based on CT abdomen from 11/07/2017. Mediastinal drains out 10/03. # small right-sided pneumothorax, resolved # [id number] left-sided pneumothorax, resolved after placement of new chest tubes 11/03/2018. CT discontinued 11/07/18. # loculated left-sided pleural effusion. Left CT had increased drainage last 2 days # Paroxysmal AFib with RVR with sustained rates of 180 despite IV metop and dilt. Amio loaded in drip from 11/01-11/05. hep gtt started 11/01/18. Converted back to NSR 11/02/18. Now on oral low-dose beta-brenton # bilateral pleural effusions s/p surgical chest tubes 10/27/18. Left chest tube removed and replaced with 2 new surgical chest tubes 11/03/18. Status post 1 dose of tPA and DNase 11/05/2018. Increased left posterior fluid collection on CT from 11/07/2018, communicates with esophageal leak. # GERD # esophageal stricture s/p dilation 10/25/18 PLAN # IR to place a percutaneous tube into the left pleural fluid collection # NPO status due to esophageal leak # GI to place stent to address esophageal leak # continue beta-brenton for paroxysmal atrial fibrillation # suggest apixaban 5 mg PO BID at discharge for Afib to be continued for at least 1 month given chemical cardioversion. Although this is the 1st diagnosis of PH in's atrial fibrillation the setting of illness he had palpitations prior to being admitted in may have been having paroxysmal AFib and higher risk for CVA # continue antibiotics per ID. # Change lansoprozole to pepcid # Restart Rhinocort and loratadine. If still having PND, try Sudafed and Afrin. # Feeding - TPN until esophageal leak addressed # Analgesia APAP, oxy # Sedation trazodone qhs prn # Thromboprophylaxis - hep gtt # Head of bed elevated # Ulcer prophylaxis - H2 brenton # Glucose SSI # Skin no skin breakdown # Delirium - delirium precautions 11/07/18 11:36 11/08/18 09:55 Subjective: Feels okay, chest pain reduced. Postnasal drip and cough are improved. Objective: Vital Signs Temp Pulse Resp BP Pulse Ox 37.2 C 105 H 14 129/75 H 92 11/08/18 08:00 11/08/18 09:08 11/08/18 08:00 11/08/18 09:08 11/08/18 08:00 Laboratory Results 11/06/18 05:00 11/08/18 04:35 11/07/18 11/08/18 11/09/18 05:59 05:59 05:59 Intake Total 6275 4128.6 Output Total 3075 4050 600 Balance 3200 78.6 -600 PT 16.1 SEC (12.0-15.0) H 11/06/18 05:00 INR 1.27 (0.83-1.16) H 11/06/18 05:00 CT abdomen: Extravasation of contrast through esophageal leak into the loculated left pleural fluid collection. Images reviewed by me. Physical Exam - Physical Exam General Appearance: alert, no apparent distress EENT: normal ENT inspection Neck: normal inspection Respiratory: decreased breath sounds (Left base), crackles (Left base) Cardiac/Chest: regular rate, rhythm, No edema Abdomen: normal bowel sounds, non-tender, soft Skin: normal color, warm/dry Extremities: normal inspection Neuro/Psych: alert, normal mood/affect, oriented x 3 ICD10 Worksheet Patient Problems: Problems Problem Status Onset Perforated viscus Acute
[2018-11-08] MEDS ORDERED: FLUMAZENIL 0.5 MG/5 ML MDV IVP PRN (12:37)
[2018-11-08] MEDS ORDERED: MEPERIDINE 25 MG/ML SYR IVP PRN (12:37)
[2018-11-08] MEDS ORDERED: NALOXONE HCL 0.4 MG/ML INJ IVP PRN (12:37)
[2018-11-08] MEDS ORDERED: MIDAZOLAM 2 MG/2 ML VIAL IVP PRN (12:37)
[2018-11-08] MEDS ORDERED: fentaNYL 100 MCG/2 ML INJ IVP PRN (12:37)
[2018-11-08] MEDS ORDERED: NS 1,000 ML IV SCH (12:45)
--- NOTE | 2018-11-08 14:07 | PDHPUP ---
History & Physical Update H&P update statement: This history and physical update is based on an assessment of the patient which was completed after admission or registration (within 24 hours), but prior to the surgery/procedure. Left pleural effusion; plan for chest tube placement H&P update: H&P reviewed & patient examined, no change in patient's condition since H&P completed
--- NOTE | 2018-11-08 14:07 | PDPROPOC ---
Sedation Plan of Care Sedation Plan of Care: vital signs stable, mental status noted, patient educated of risks, benefits, alternatives, patient can tolerate sedation ASA Classification: ASA 2 Planned drugs: fentanyl, midazolam Mallampati Score: Class 2 Mallampati Reference Image: Patient passed 3-3-2 rule?: Yes
--- NOTE | 2018-11-08 14:09 | PDRADPN ---
Radiology Procedure Note Date of Procedure: 11/08/18 Radiologist: Levi Conroy Anesthesia: IV Sedation Pre-op Diagnosis: Left pleural effusion Post-op Diagnosis: Left pleural effusion Indication: Left pleural effusion Procedure: Chest tube placement under ultrasound guidance Finding(s): 16 Fr chest tube, nonpurulent serosangionous pleural fluid sent for analysis. Inf/Abcess present in the surg proc area at time of surgery?: No Drains: Other (Pleurevac)
--- NOTE | 2018-11-08 15:32 | SOAPPROG ---
Downtime Inpatient MD Late Entry SOAP Note: s/p successful drainage left posterior chest collection by Dr. Conroy/will proceed with stent replacement tomorrow restart anticoagualtion with LMWH and full liquid diet.
[2018-11-08] MEDS: PSEUDOEPHEDRINE LIQ 30 MG/10 ML UDSYR PO PRN (16:07)
[2018-11-08] MEDS: ACETAMINOPHEN 650 MG/20.3 ML UDCUP PO PRN (16:34)
[2018-11-08] MEDS: guaiFENesin/CODEINE PHOS 10 ML UDCUP PO PRN ×2 (17:33→21:35)
[2018-11-08] MEDS: ENOXAPARIN 100 MG/ML SYR SC SCH (17:36)
[2018-11-08] MEDS: TPN 1 EA BAG IV SCH (21:04)
[2018-11-08] MEDS: HYDROmorphONE/DILAUDID 2 MG TAB PO PRN (22:15)
[2018-11-09] MEDS: guaiFENesin/CODEINE PHOS 10 ML UDCUP PO PRN ×3 (03:24→16:46)
[2018-11-09] MEDS: HYDROmorphONE/DILAUDID 2 MG TAB PO PRN (03:37)
[2018-11-09] MEDS: ALTEPLASE 2 MG VIAL IVP PRN ×2 (04:57→22:20)
[2018-11-09] MEDS: AMPICILLIN/SULBACTAM 3 GM in NS 100 ML IV SCH ×3 (06:02→17:54)
[2018-11-09] MEDS: ENOXAPARIN 100 MG/ML SYR SC SCH (06:04)
--- NOTE | 2018-11-09 07:00 | SOAPPROG ---
SOAP Progress Note Assessment/Plan: Assessment:s/p repair of GE junction perforation POD #15 low grade fevers + fluctuating wbc-incomplete evacuation of effusion on CXR s/p deployment of esophageal covered stent POD # 9-new finding of persistent leak above the previously placed stent new onset A-fib with RVR, currently in NSR nutritional defecit on TPN Plan: continue TPN today/full liquid diet with supplements after stent placement continue abx per ID hold Lovenox for procedure later today discussed covered stent placement with Dr. Myers/anticipate later today 10/27/18 07:11 10/28/18 10:11 18 10:55 10/30/18 10:47 10/31/18 07:14 11/01/18 08:17 11/02/18 06:47 11/03/18 07:29 11/04/18 12:38 11/04/18 14:25 11/05/18 08:13 11/05/18 08:16 11/07/18 11:34 11/08/18 09:29 11/09/18 06:58 Subjective: awake/nocturnal coughing persists/denies abd pain Objective: Vital Signs Temp Pulse Resp BP Pulse Ox 38.1 C 104 H 20 136/68 H 92 11/09/18 04:00 11/09/18 04:00 11/09/18 04:00 11/09/18 04:00 11/09/18 04:00 Microbiology 11/08/18 14:00 Gram Stain - Final Pleural Fluid - Aspirate Laboratory Results 11/09/18 06:00 11/08/18 04:35 11/08/18 11/09/18 11/10/18 05:59 05:59 05:59 Intake Total 4128.6 2614 Output Total 4050 2965 200 Balance 78.6 -351 -200 PT 16.1 SEC (12.0-15.0) H 11/06/18 05:00 INR 1.27 (0.83-1.16) H 11/06/18 05:00 - Pending Discharge Pending Discharge Within 24 Hours: No Pending Discharge Within 48 Hours: No Physical Exam - Physical Exam General Appearance: alert, no apparent distress Respiratory: rhonchi (left base), other (CT output serosanguinous) Cardiac/Chest: regular rate, rhythm, tachycardia Abdomen: non-tender, soft Male Genitalia: deferred Rectal: deferred Neuro/Psych: alert, normal mood/affect, oriented x 3 ICD10 Worksheet Patient Problems: Problems Problem Status Onset Perforated viscus Acute
[2018-11-09] MEDS: METOPROLOL TARTRATE 25 MG TAB PO SCH ×2 (08:08→21:29)
[2018-11-09] MEDS: FLUTICASONE NASAL 120 SPRAYS/16 GM MDI EACHNARE SCH (08:08)
[2018-11-09] MEDS: CETIRIZINE 10 MG TAB PO SCH (08:08)
[2018-11-09] MEDS: FAMOTIDINE 20 MG TAB PO SCH (08:08)
[2018-11-09] MEDS: PSEUDOEPHEDRINE LIQ 30 MG/10 ML UDSYR PO PRN (08:18)
--- NOTE | 2018-11-09 09:09 | PDINTPN ---
Fireworks Inspector Progress Note Assessment/Plan: Assessment: 57 yo male with perforated esophagus c/b peritonitis and mediastinitis s/p repair 10/26/18, covered eosophageal stent 10/30/18 and new L sided chest tubes 11/03/18. WBC falling, had low-grade fever this AM. # perforated esophagus, s/p ex lap and repair of GE junction and fundoplication and subsequent esophageal stent placed 10/30/18. Leak persists based on CT abdomen from 11/07/2017. Mediastinal drains out 10/03. # small right-sided pneumothorax, resolved # [id number] left-sided pneumothorax, resolved after placement of new chest tubes 11/03/2018. CT discontinued 11/07/18. # Paroxysmal AFib with RVR with sustained rates of 180 despite IV metop and dilt. Amio loaded in drip from 11/01-11/05. hep gtt started 11/01/18. Converted back to NSR 11/02/18. Now on oral low-dose beta-brenton # bilateral pleural effusions s/p surgical chest tubes 10/27/18. Left chest tube removed and replaced with 2 new surgical chest tubes 11/03/18. Status post 1 dose of tPA and DNase 11/05/2018. Increased left posterior fluid collection on CT from 11/07/2018, communicates with esophageal leak. Status left chest tube placement by IR. Chest x-ray looks improved in that region. # GERD # esophageal stricture s/p dilation 10/25/18 PLAN # NPO status due to esophageal leak # GI to place extended stent to address esophageal leak # continue beta-brenton for paroxysmal atrial fibrillation # suggest apixaban 5 mg PO BID at discharge for Afib to be continued for at least 1 month given chemical cardioversion. Although this is the 1st diagnosis of PH in's atrial fibrillation the setting of illness he had palpitations prior to being admitted in may have been having paroxysmal AFib and higher risk for CVA # continue Unasyn per ID. # Change lansoprozole to pepcid # Restart Rhinocort and loratadine. If still having PND, use PRN Sudafed and Afrin. # Feeding - TPN until esophageal leak addressed # Analgesia APAP, oxy # Sedation trazodone qhs prn # Thromboprophylaxis - hep gtt # Head of bed elevated # Ulcer prophylaxis - H2 brenton # Glucose SSI # Skin no skin breakdown # OK to transfer to Tele 11/09/18 09:10 Subjective: Slept better last night, which she attributes to Dilaudid helping reduce his cough. Objective: Vital Signs Temp Pulse Resp BP Pulse Ox 38.1 C 95 23 H 116/70 91 L 11/09/18 04:00 11/09/18 08:08 11/09/18 07:21 11/09/18 07:21 11/09/18 07:21 Microbiology 11/08/18 14:00 Gram Stain - Final Pleural Fluid - Aspirate Laboratory Results 11/09/18 06:00 11/08/18 04:35 11/08/18 11/09/18 11/10/18 05:59 05:59 05:59 Intake Total 4128.6 2614 480 Output Total 4050 2965 625 Balance 78.6 -351 -145 PT 16.1 SEC (12.0-15.0) H 11/06/18 05:00 INR 1.27 (0.83-1.16) H 11/06/18 05:00 Physical Exam - Physical Exam General Appearance: alert, no apparent distress EENT: normal ENT inspection Neck: normal inspection Respiratory: crackles (left base), No normal breath sounds Cardiac/Chest: normal peripheral pulses, regular rate, rhythm Abdomen: normal bowel sounds, non-tender Skin: normal color, warm/dry Extremities: normal inspection Neuro/Psych: alert, normal mood/affect, oriented x 3 ICD10 Worksheet Patient Problems: Problems Problem Status Onset Perforated viscus Acute
--- NOTE | 2018-11-09 09:22 | PCMIDPN ---
Assessment/Plan: # Esophageal perforation causing Mediastinitis/peritonitis and L pleural effusion (prior cx 10/27 neg and 11/08 pending). Cx from initial procedure with MSSA and streptococcus. No yeast ID'd. Still awaiting source control. WBC improving. CXR from today personally reviewed by me and stable. pleural fluid mostly drained --continue Unasyn --esophageal stent planned for later today --duration of abx still under assessment. If cx neg and able to tolerate PO may be able to complete therapy w Augmentin --hopeful that percutaneous drainage will be adequate. Continue to assess. # Leukocytosis : gradually improving meds, Abx #14 Unasyn 3gm IV q6h #7 Subjective: States that he is doing "well, I suppose." Coughing exacerbates his pain. Reports associated loose stools throughout hospitalization, unchanged. Denies associated itching or rash. Will get a stent placed this afternoon after 16:00. IAga, am scribing for, and in the presence of, Carmella Francisco MD. ICarmella MD, personally performed the services described in this documentation, as scribed by Aga Gore in my presence, and it is both accurate and complete. Objective: Vital Signs Temp Pulse Resp BP Pulse Ox 38.1 C 95 23 H 116/70 91 L 11/09/18 04:00 11/09/18 08:08 11/09/18 07:21 11/09/18 07:21 11/09/18 07:21 Microbiology 11/08/18 14:00 Gram Stain - Final Pleural Fluid - Aspirate Laboratory Results 11/09/18 06:00 11/08/18 04:35 11/08/18 11/09/18 11/10/18 05:59 05:59 05:59 Intake Total 4128.6 2614 480 Output Total 4050 2965 625 Balance 78.6 -351 -145 Microbiology: 11/08/18 Pleural fluid aspirate cultures, pending results and gram stain shows 4 + PMNs. 11/03/18 Pleural fluid cultures, negative. 10/29/18 Blood cultures x2 sets, negative. 10/25/18 Abdominal cultures with MSSA, strep mitis and strep thermophilus. - Physical Exam General Appearance: alert, no apparent distress EENT: dry mucous membranes, No thrush Respiratory: crackles (in the bases ), other (absent breath sounds ) Neck: supple Cardiac/Chest: regular rate, rhythm (hyperdynamic precordium ), other (L- lateral chest tube with serosanguinous fluid) Extremities: other (no BLE edema ) Male Genitalia: No bowers Skin: No rash Neuro/Psych: alert, normal mood/affect, oriented x 3, other (normal gait ) - Line/s RUE PICC Lines: other (triple lumen), No drainage, No erythema - Time Spent With Patient Time Spent with Patient: greater than 35 minutes (care coordinated w Dr Nava) Time Spent with Patient: Greater than 35 minutes spent on this patients care, greater than 50% of time spent counseling, educating, and coordinating care regarding the above mentioned plan. ICD10 Worksheet Patient Problems: Problems Problem Status Onset Perforated viscus Acute
[2018-11-09] MEDS: ACETAMINOPHEN 650 MG/20.3 ML UDCUP PO PRN (09:37)
[2018-11-09] MEDS ORDERED: NALOXONE HCL 0.4 MG/ML INJ IVP PRN (15:04)
[2018-11-09] MEDS ORDERED: ONDANSETRON 4 MG/2 ML VIAL IVP PRN (15:04)
[2018-11-09] MEDS ORDERED: ALBUTEROL 3 ML DEYVIAL IH PRN (15:04)
[2018-11-09] MEDS ORDERED: HYDROmorphONE/DILAUDID 2 MG/ML INJ IVP PRN (15:04)
--- NOTE | 2018-11-09 15:07 | PDANEPAE ---
ANE History of Present Illness ECG w/ Stent Placement ANE Past Medical History - Cardiovascular History Hx Hypertension: No Hx Arrhythmias: Yes Hx Chest Pain: No Hx Coronary Artery / Peripheral Vascular Disease: No Hx CHF / Valvular Disease: No Hx Palpitations: Yes - Pulmonary History Hx COPD: No Hx Asthma/Reactive Airway Disease: No Hx Recent Upper Respiratory Infection: No Hx Oxygen in Use at Home: No Hx Sleep Apnea: No Sleep Apnea Screening Result - Last Documented: Positive Pulmonary History Comment: Pneumothorax s/p esophageal perforation - Endocrine History Hx Diabetes: No - Renal History Hx Renal Disorders: No ANE Review of Systems Review of Systems: ANE Patient History - Allergies Allergies/Adverse Reactions: No Known Allergies Allergy (Unverified 10/25/18 17:32) - Home Medications Home Medications: Budesonide [Rhinocort Allergy] 1 spray NS DAILY 10/25/18 [Last Taken 10/25/18] Loratadine 10 mg PO DAILY 10/25/18 [Last Taken 10/25/18] Omeprazole 40 mg PO DAILY 10/25/18 [Last Taken 10/25/18] - NPO status NPO Since - Liquids (Date): 10/25/18 NPO Since - Liquids (Time): 13:00 NPO Since - Solids (Date): 10/25/18 NPO Since - Solids (Time): 13:00 - Smoking Hx Smoking Status: Never smoked ANE Labs/Vital Signs - Labs Result Diagrams: 11/09/18 06:00 11/08/18 04:35 - Vital Signs Blood Pressure: 103/72 Heart Rate: 87 Respiratory Rate: 23 O2 Sat (%): 93 Height: 182.88 cm Weight: 86.9 kg ANE Physical Exam - Airway Neck exam: FROM Mallampati Score: Class 2 Mouth exam: normal dental/mouth exam - Pulmonary Pulmonary: clear to auscultation - Cardiovascular Cardiovascular: regular rate and rhythym - ASA Status ASA Status: III ANE Anesthesia Plan Anesthesia Plan: GA with mask
[2018-11-09] MEDS ORDERED: PROPOFOL 200 MG/20 ML VIAL ONE (15:11)
[2018-11-09] MEDS ORDERED: LIDOCAINE 2% 5 ML SDV ONE (15:13)
[2018-11-09] MEDS ORDERED: ROCURONIUM 50 MG/5 ML VIAL ONE (15:13)
--- NOTE | 2018-11-09 15:19 | PDGENHP ---
History & Physical Chief Complaint: esoph perf History of Present Illness: 57 year old male presents for stenting for esophageal perforation. Pertinent Past, Social, Family History: PMHx: rhinitis, skin cancer, GERD. Psurghx: Skin cancer. Relevant Physical Exam: HEENT: anicteric. CV; RRR +s1s2. lungs" Decreased BS. Abd: soft, nd Cardiorespiratory Assessment: ASA 3
[2018-11-09] MEDS ORDERED: SUGAMMADEX SODIUM 200 MG/2 ML VIAL IVP ONE (16:09)
[2018-11-09] MEDS ORDERED: ONDANSETRON 4 MG/2 ML VIAL ONE (16:09)
[2018-11-09] MEDS ORDERED: fentaNYL 100 MCG/2 ML INJ ONE (16:26)
[2018-11-09] MEDS: fentaNYL 100 MCG/2 ML INJ IVP PRN ×4 (16:29→16:55)
[2018-11-09] MEDS ORDERED: HYDROmorphONE/DILAUDID 2 MG/ML INJ ONE (16:56)
[2018-11-09] MEDS: HYDROmorphONE/DILAUDID 1 MG/ML INJ IVP PRN ×2 (18:39→21:50)
--- NOTE | 2018-11-09 18:46 | GPN ---
DATE OF PROCEDURE: 11/09/2018 PROCEDURE: Esophagogastroduodenoscopy with stent placement, stent removal. INDICATIONS: The patient is a 57-year-old male who presents for stent placement regarding an esophageal perforation. CONSENT: Risks, benefits, and alternatives of the procedure were discussed in great detail with the patient. Risks of infection, bleeding, perforation, and sedation were discussed. All questions answered and informed consent obtained. MEDICATIONS: General anesthesia. Please see anesthesia record for details. ESTIMATED BLOOD LOSS: Insignificant. ESOPHAGOGASTRODUODENOSCOPY EXAMINATION: The Olympus upper endoscope was introduced in the mouth and advanced into the esophagus. The stent was noted to have migrated to the stomach. Multiple attempts were made to remove the stent using a trapezoid basket, as well as a snare, but could not catch the back end of the stent. Eventually, rat -tooth forceps was utilized, and the wire on the stent was grasped, and the stent was compressed and pulled through the esophagus. The scope was reintroduced. In the distal esophagus, a long linear ulceration was noted. No obvious area of perforation was noted. he stomach was essentially normal in appearance. The duodenal bulb was normal at second portion. A 0.035-inch guidewire was placed into the stomach under direct vision and also verified by fluoroscopy. The GE junction was marked by a paper clip on the external skin under fluoroscopy A 23 x 150 stent was then placed using fluoroscopy as a guide. Successful placement was noted. Due to the prior stent being migrated, 4 clips were attempted to be placed in the proximal part of the stent to keep it in place. Minimal tissue was grasped , and four clips were deployed. IMPRESSION: Successful placement of stent. RECOMMENDATIONS: 1. N.p.o. 2. Gastrografin study soon. /[id number]/MODL MTDD
--- NOTE | 2018-11-09 19:25 | SOAPPROG ---
Downtime Inpatient MD Late Entry SOAP Note: Called by patient's RN Cassie regarding poor pain control following stent replacement by Dr. Myers. CXR reviewed and procedure appears uncomplicated. He has moderate gastric distention following the procedure and will limit oral intake to clear liquids tonight and reassess in AM. Procedural findings discussed with Dr. Myers. Iliana Leon MD, FACS
[2018-11-09] MEDS: TPN 1 EA BAG IV SCH (21:18)
[2018-11-10] MEDS: AMPICILLIN/SULBACTAM 3 GM in NS 100 ML IV SCH ×4 (00:06→17:39)
[2018-11-10] MEDS: HYDROmorphONE/DILAUDID 1 MG/ML INJ IVP PRN ×3 (01:15→09:01)
[2018-11-10] MEDS: METOPROLOL TARTRATE 25 MG TAB PO SCH ×2 (10:47→20:42)
[2018-11-10] MEDS: CETIRIZINE 10 MG TAB PO SCH (10:47)
[2018-11-10] MEDS: FLUTICASONE NASAL 120 SPRAYS/16 GM MDI EACHNARE SCH (11:19)
[2018-11-10] MEDS: PROMETHAZINE HCL 25 MG TAB PO PRN ×2 (12:04→20:42)
--- NOTE | 2018-11-10 13:40 | PCMIDPN ---
Assessment/Plan: Assessment: Esophageal perforation-status post operative repair. Stent replaced yesterday. Repeat chest x-ray confirms good placement and the persistent effusion in the left pleural space is improved. White blood cell count is decreasing. Continue to cover with IV Unasyn. Patient is having some ongoing pain and spasms some time with swallowing and sometimes not. This needs to resolve prior to consideration for discharge. Agree with potential transition over to p.o. Augmentin at that point. Plan: 1. Continue IV Unasyn. 2. Follow up on patient pain level as well as white blood cell count and appearance of chest x-ray. Subjective: Patient is resting comfortably in his hospital bed. He has periodic spasms of the esophagus which cause him pain. Sometimes these are precipitated by swallow and sometimes they occur without swallow. He is unclear if his pain medication is helping with this or not. Denies fevers or chills. Objective: Unasyn #8 Vital Signs Temp Pulse Resp BP Pulse Ox 36.7 C 81 18 102/73 90 L 11/10/18 11:41 11/10/18 11:41 11/10/18 11:41 11/10/18 11:41 11/10/18 11:41 Microbiology 11/08/18 14:00 Gram Stain - Final Pleural Fluid - Aspirate Laboratory Results 11/10/18 05:35 11/08/18 04:35 11/09/18 11/10/18 11/11/18 05:59 05:59 05:59 Intake Total 2614 3512 Output Total 2965 1493 450 Balance -351 2018 - Physical Exam General Appearance: WD/WN, alert, no apparent distress, non-toxic Respiratory: lungs clear, normal breath sounds, No respiratory distress Cardiac/Chest: regular rate, rhythm, No tachycardia Extremities: non-tender, normal inspection Skin: normal color, warm/dry, No rash Neuro/Psych: alert, normal mood/affect, oriented x 3 ICD10 Worksheet Patient Problems: Problems Problem Status Onset Perforated viscus Acute
[2018-11-10] MEDS: LORazepam 2 MG/ML INJ IVP PRN (14:16)
--- NOTE | 2018-11-10 15:22 | ASMTCMCOM ---
CM Note CM Note Notes: Pts case discussed w/ MACKENZIE Ellis. Therapies have cleared pt to d/c without any need. Pts TPN will be stopped tonight nd be transitioned to fluids. Pt should not have any d/c needs. CM available for changes. Plan: Independent Date Signed: 11/10/2018 03:21 PM Electronically Signed By:MILES Platt
[2018-11-10] MEDS ORDERED: NITROGLYCERIN 0.4 MG BTL SL PRN (15:59)
--- NOTE | 2018-11-10 15:59 | SOAPPROG ---
SOAP Progress Note Assessment/Plan: Assessment:s/p repair of GE junction perforation POD #16 s/p deployment of esophageal covered stent POD #10/-new stent placed yesterday by Dr Myers in good position on CXR new onset A-fib with RVR, currently in NSR nutritional defecit on TPN Plan: continue TPN today/full liquid diet with supplements continue abx per ID restart Lovenox/consider Eliquis at discharge 10/27/18 07:11 10/28/18 10:11 10/29/18 10:55 10/30/18 10:47 10/31/18 07:14 11/01/18 08:17 11/02/18 06:47 11/03/18 07:29 11/04/18 12:38 11/04/18 14:25 11/05/18 08:13 11/05/18 08:16 11/07/18 11:34 11/08/18 09:29 11/09/18 06:58 11/10/18 15:56 Subjective: intermitant esophogeal spasms/tolerating clear liquids Objective: Vital Signs Temp Pulse Resp BP Pulse Ox 36.6 C 88 25 H 122/84 H 96 11/10/18 15:44 11/10/18 15:44 11/10/18 15:44 11/10/18 15:44 11/10/18 15:44 Microbiology 11/08/18 14:00 Gram Stain - Final Pleural Fluid - Aspirate Laboratory Results 11/10/18 05:35 11/08/18 04:35 11/09/18 11/10/18 11/11/18 05:59 05:59 05:59 Intake Total 2614 3512 Output Total 2965 1493 700 Balance -351 2018 -700 PT 16.1 SEC (12.0-15.0) H 11/06/18 05:00 INR 1.27 (0.83-1.16) H 11/06/18 05:00 - Pending Discharge Pending Discharge Within 24 Hours: No Pending Discharge Within 48 Hours: No Physical Exam - Physical Exam General Appearance: mild distress Respiratory: other (CT drainage clearing/ no air leak) Cardiac/Chest: regular rate, rhythm Abdomen: non-tender, soft Neuro/Psych: normal mood/affect, oriented x 3 ICD10 Worksheet Patient Problems: Problems Problem Status Onset Perforated viscus Acute
[2018-11-10] MEDS: PSEUDOEPHEDRINE LIQ 30 MG/10 ML UDSYR PO PRN ×2 (16:18→21:54)
[2018-11-10] MEDS: guaiFENesin/CODEINE PHOS 10 ML UDCUP PO PRN ×2 (18:17→21:54)
[2018-11-10] MEDS: ENOXAPARIN 100 MG/ML SYR SC SCH (20:42)
[2018-11-10] MEDS: LORazepam 1 MG TAB PO PRN (20:42)
[2018-11-10] MEDS: TPN 1 EA BAG IV SCH (21:41)
[2018-11-11] MEDS: AMPICILLIN/SULBACTAM 3 GM in NS 100 ML IV SCH ×5 (00:17→23:33)
[2018-11-11] MEDS: LORazepam 2 MG/ML INJ IVP PRN (00:39)
[2018-11-11] MEDS: HYDROmorphONE/DILAUDID 1 MG/ML INJ IVP PRN ×2 (00:40→20:51)
[2018-11-11 06:26] LABS: PLATELET COUNT 613 10^3/uL (150-400)
--- NOTE | 2018-11-11 09:05 | SOAPPROG ---
SOAP Progress Note Assessment/Plan: Assessment:s/p repair of GE junction perforation POD #17 s/p deployment of esophageal covered stent POD #11/2-new stent placed yesterday by Dr Myers in good position on CXR new onset A-fib with RVR, currently in NSR nutritional defecit on TPN Plan: continue TPN today/full liquid diet with supplements continue abx per ID/trial of SL NTG +/- carafate restart Lovenox/consider Eliquis at discharge 10/27/18 07:11 18 10:11 18 10:55 18 10:47 10/31/18 07:14 11/01/18 08:17 11/02/18 06:47 11/03/18 07:29 11/04/18 12:38 11/04/18 14:25 11/05/18 08:13 11/05/18 08:16 11/07/18 11:34 11/08/18 09:29 11/09/18 06:58 11/10/18 15:56 11/11/18 09:01 Subjective: chest symptoms persist/painful cough Objective: Vital Signs Temp Pulse Resp BP Pulse Ox 37.6 C 95 20 116/80 87 L 11/11/18 07:49 11/11/18 07:49 11/11/18 07:49 11/11/18 07:49 11/11/18 07:49 Microbiology 11/08/18 14:00 Gram Stain - Final Pleural Fluid - Aspirate Laboratory Results 11/11/18 05:50 11/08/18 04:35 11/10/18 11/11/18 11/12/18 05:59 05:59 05:59 Intake Total 3512 3320 Output Total 1493 1664 Balance 2018 1655 PT 16.1 SEC (12.0-15.0) H 11/06/18 05:00 INR 1.27 (0.83-1.16) H 11/06/18 05:00 - Pending Discharge Pending Discharge Within 24 Hours: No Pending Discharge Within 48 Hours: No Physical Exam - Physical Exam General Appearance: mild distress Respiratory: normal breath sounds, decreased breath sounds, splinting, pain on movement, other (Left anterior chest tube with minimal output/removed using sterile technique/posterior chest tube redressed with stage 1 pressure injury to skin noted( covered with Mepiplex) tubing secured with Tegaderm) Cardiac/Chest: regular rate, rhythm Abdomen: non-tender, soft, distended, other (active bowel sounds) Male Genitalia: deferred Rectal: deferred Skin: other (grade 1 pressure injury from posterior chest tube) Neuro/Psych: alert, normal mood/affect, oriented x 3 ICD10 Worksheet Patient Problems: Problems Problem Status Onset Perforated viscus Acute
[2018-11-11] MEDS ORDERED: morphINE 10 MG/0.5 ML UDSYR PO PRN (09:08)
[2018-11-11] MEDS ORDERED: HYDROmorphONE/DILAUDID 2 MG TAB PO PRN (09:08)
[2018-11-11] MEDS ORDERED: SUCRALFATE 1 GM/10 ML UDCUP PO PRN (09:09)
[2018-11-11] MEDS: FLUTICASONE NASAL 120 SPRAYS/16 GM MDI EACHNARE SCH (09:10)
[2018-11-11] MEDS: ACETAMINOPHEN 650 MG/20.3 ML UDCUP PO PRN (09:19)
[2018-11-11] MEDS: CETIRIZINE 10 MG TAB PO SCH (10:45)
[2018-11-11] MEDS: ENOXAPARIN 100 MG/ML SYR SC SCH ×2 (10:45→20:53)
--- NOTE | 2018-11-11 11:06 | PCMIDPN ---
Assessment/Plan: Assessment: Esophageal perforation-status post operative repair. Stent placed earlier in his stay and then replaced a couple days ago due to migration. Repeat chest x- ray confirms good placement and the persistent effusion in the left pleural space is improved. White blood cell count slightly increased to dated 12,000. Continue to cover with IV Unasyn. Patient is having some ongoing pain and spasms some time with swallowing but this seems to be slightly improved today. Look forward to upcoming chest x-ray and swallow study. Agree with potential transition over to p.o. Augmentin at that point. Plan: 1. Continue IV Unasyn. 2. Follow up on patient pain level as well as white blood cell count and appearance of chest x-ray. 11/11/18 11:03 Subjective: Patient is sitting in his hospital chair. He has been walking around his room earlier this morning. Feels a little sluggish this morning. Had reasonable sleep last night but also went into AFib with rapid ventricular response possibly as a result of the use of Sudafed attempting to treat his postnasal drip and cough. No fevers or chills. No shortness of breath. Objective: Unasyn # 9 Vital Signs Temp Pulse Resp BP Pulse Ox 37.6 C 104 H 20 99/87 H 87 L 11/11/18 07:49 11/11/18 10:58 11/11/18 07:49 11/11/18 10:58 11/11/18 07:49 Microbiology 11/08/18 14:00 Gram Stain - Final Pleural Fluid - Aspirate Laboratory Results 11/11/18 05:50 11/08/18 04:35 11/10/18 11/11/18 11/12/18 05:59 05:59 05:59 Intake Total 9612 3320 Output Total 1613 1664 Balance 20186 - Physical Exam General Appearance: WD/WN, alert, no apparent distress, non-toxic Respiratory: lungs clear, normal breath sounds, No respiratory distress Cardiac/Chest: regular rate, rhythm, No tachycardia, No irregularly irregular Extremities: non-tender, normal inspection Skin: normal color, warm/dry, No rash Neuro/Psych: alert, normal mood/affect, oriented x 3 ICD10 Worksheet Patient Problems: Problems Problem Status Onset Perforated viscus Acute
[2018-11-11] MEDS: METOPROLOL TARTRATE 25 MG TAB PO SCH ×2 (12:47→20:52)
[2018-11-11] MEDS: PROMETHAZINE HCL 25 MG TAB PO PRN (16:48)
[2018-11-11] MEDS: guaiFENesin/CODEINE PHOS 10 ML UDCUP PO PRN (18:15)
[2018-11-11] MEDS: TPN 1 EA BAG IV SCH (20:52)
[2018-11-11] MEDS: LORazepam 1 MG TAB PO PRN (20:52)
[2018-11-12] MEDS: guaiFENesin/CODEINE PHOS 10 ML UDCUP PO PRN ×3 (00:13→20:33)
[2018-11-12] MEDS: HYDROmorphONE/DILAUDID 1 MG/ML INJ IVP PRN (02:36)
[2018-11-12] MEDS: AMPICILLIN/SULBACTAM 3 GM in NS 100 ML IV SCH ×4 (06:15→23:59)
[2018-11-12 06:36] LABS: PLATELET COUNT 569 10^3/uL (150-400)
--- NOTE | 2018-11-12 06:53 | SOAPPROG ---
SOAP Progress Note Assessment/Plan: Assessment:s/p repair of GE junction perforation POD #18-low grade temps and leukocytosis persist s/p deployment of esophageal covered stent POD #12/3-new stent placed by Dr Myers in good position on CXR new onset A-fib with RVR, currently in NSR nutritional defecit on TPN/difficulty eating due to pain with swallowing Plan: continue TPN today/full liquid diet with supplements continue abx per ID/trial of SL NTG +/- carafate restart Lovenox/consider Eliquis at discharge 10/27/18 07:11 18 10:11 18 10:55 10/30/18 10:47 10/31/18 07:14 11/01/18 08:17 11/02/18 06:47 11/03/18 07:29 11/04/18 12:38 11/04/18 14:25 11/05/18 08:13 11/05/18 08:16 11/07/18 11:34 11/08/18 09:29 11/09/18 06:58 11/10/18 15:56 11/11/18 09:01 11/12/18 06:50 Subjective: pain with swallowing/persistent cough(non-productive) Objective: Vital Signs Temp Pulse Resp BP Pulse Ox 37.8 C 106 H 16 130/75 H 86 L 11/12/18 03:04 11/12/18 03:04 11/12/18 03:04 11/12/18 03:04 11/12/18 03:04 Microbiology 11/08/18 14:00 Gram Stain - Final Pleural Fluid - Aspirate Laboratory Results 11/12/18 06:20 11/08/18 04:35 11/11/18 11/12/18 11/13/18 05:59 05:59 05:59 Intake Total 3320 3146 125 Output Total 1664 1040 Balance 1656 2106 125 PT 16.1 SEC (12.0-15.0) H 11/06/18 05:00 INR 1.27 (0.83-1.16) H 11/06/18 05:00 Physical Exam - Physical Exam General Appearance: mild distress Respiratory: lungs clear, decreased breath sounds (left base), splinting, pain on movement Abdomen: non-tender, soft Male Genitalia: deferred Rectal: deferred Skin: warm/dry Neuro/Psych: normal mood/affect, oriented x 3 ICD10 Worksheet Patient Problems: Problems Problem Status Onset Perforated viscus Acute
--- NOTE | 2018-11-12 09:14 | PCMIDPN ---
Assessment/Plan: Assessment: Esophageal perforation-status post operative repair. Stent placed earlier in his stay and then replaced three days ago due to migration. Repeat chest x-ray yesterday confirms good placement and the persistent effusion in the left pleural space remains improved. White blood cell count continues to slowly increase - [place] [address]. Continue to cover with IV Unasyn. Patient is having some ongoing pain and spasms some time with swallowing. Look forward to upcoming swallow study. Agree with potential transition over to p.o. Augmentin at point of discharge. Will check surveillance blood cultures today given fever and risk factors. Plan: 1. Continue IV Unasyn. 2. Follow up on patient pain level as well as white blood cell count and appearance of chest x-ray. 3. Check 2 sets of blood cultures. 11/11/18 11:03 11/12/18 09:11 11/12/18 09:12 Subjective: Patient sitting up in his chair in his hospital room. Trying to force himself to drink Ensure. No subjective fevers - but recorded temp of 38.3 last night. Objective: Unasyn #10 Vital Signs Temp Pulse Resp BP Pulse Ox 37.2 C 119 H 21 H 139/89 H 90 L 11/12/18 07:32 11/12/18 07:32 11/12/18 07:32 11/12/18 07:32 11/12/18 07:32 Microbiology 11/08/18 14:00 Gram Stain - Final Pleural Fluid - Aspirate Laboratory Results 11/12/18 06:20 11/08/18 04:35 11/11/18 11/12/18 11/13/18 05:59 05:59 05:59 Intake Total 3320 3146 125 Output Total 1664 1040 Balance 1656 2106 125 - Physical Exam General Appearance: WD/WN, alert, no apparent distress, non-toxic Respiratory: lungs clear, normal breath sounds, No respiratory distress Cardiac/Chest: regular rate, rhythm, tachycardia, No irregularly irregular Skin: normal color, warm/dry, No rash Neuro/Psych: alert, normal mood/affect, oriented x 3 ICD10 Worksheet Patient Problems: Problems Problem Status Onset Perforated viscus Acute
[2018-11-12] MEDS: ENOXAPARIN 100 MG/ML SYR SC SCH ×2 (09:37→20:33)
[2018-11-12] MEDS: METOPROLOL TARTRATE 25 MG TAB PO SCH ×2 (09:38→20:33)
[2018-11-12] MEDS: CETIRIZINE 10 MG TAB PO SCH (09:39)
[2018-11-12] MEDS: FLUTICASONE NASAL 120 SPRAYS/16 GM MDI EACHNARE SCH (09:40)
[2018-11-12] MEDS: ONDANSETRON 4 MG/2 ML VIAL IVP PRN (14:50)
[2018-11-12] MEDS: TPN 1 EA BAG IV SCH (20:33)
[2018-11-12] MEDS: PROMETHAZINE HCL 25 MG TAB PO PRN (21:42)
[2018-11-12] MEDS: OXYMETAZOLINE 30 ML NASAL SPRAY EACHNARE PRN (23:00)
[2018-11-13] MEDS: LORazepam 2 MG/ML INJ IVP PRN (00:48)
--- NOTE | 2018-11-13 05:54 | SOAPPROG ---
SOAP Progress Note Assessment/Plan: Assessment:s/p repair of GE junction perforation POD #19-low grade temps improved, cbc today pending s/p deployment of esophageal covered stent POD #13/4-new stent placed by Dr Myers in good position on CXR new onset A-fib with RVR, currently in NSR nutritional defecit on TPN/difficulty eating due to pain with swallowing Plan: continue TPN today/full liquid diet with supplements/speech eval and esophogram ordered for today Therapeutic Lovenox/consider Eliquis at discharge 10/27/18 07:11 10/28/18 10:11 18 10:55 10/30/18 10:47 10/31/18 07:14 11/01/18 08:17 11/02/18 06:47 11/03/18 07:29 11/04/18 12:38 11/04/18 14:25 11/05/18 08:13 11/05/18 08:16 11/07/18 11:34 11/08/18 09:29 11/09/18 06:58 11/10/18 15:56 11/11/18 09:01 11/12/18 06:50 11/13/18 05:53 Subjective: still having trouble swallowing/able to tolerated clear liquids, applesauce and jello Objective: Vital Signs Temp Pulse Resp BP Pulse Ox 37.1 C 104 H 20 140/75 H 90 L 11/13/18 02:40 11/13/18 02:40 11/13/18 02:40 11/13/18 02:40 11/13/18 02:40 Microbiology 11/08/18 14:00 Gram Stain - Final Pleural Fluid - Aspirate Laboratory Results 11/12/18 06:20 11/08/18 04:35 11/11/18 11/12/18 11/13/18 05:59 05:59 05:59 Intake Total 3320 3146 2920 Output Total 1664 1040 500 Balance 1656 2106 2420 PT 16.1 SEC (12.0-15.0) H 11/06/18 05:00 INR 1.27 (0.83-1.16) H 11/06/18 05:00 Physical Exam - Physical Exam General Appearance: mild distress Respiratory: lungs clear, decreased breath sounds, crackles (left base), other ( CT drainage serous) Cardiac/Chest: regular rate, rhythm Abdomen: non-tender, soft Back: Normal inspection Skin: warm/dry Neuro/Psych: normal mood/affect, oriented x 3 ICD10 Worksheet Patient Problems: Problems Problem Status Onset Perforated viscus Acute
[2018-11-13] MEDS: AMPICILLIN/SULBACTAM 3 GM in NS 100 ML IV SCH ×4 (06:03→22:59)
[2018-11-13 06:26] LABS: PLATELET COUNT 541 10^3/uL (150-400)
[2018-11-13 06:33] LABS: INR 1.24 (0.83-1.16); PROTIME(PATIENT) 15.8 SEC (12.0-15.0)
[2018-11-13] MEDS: CETIRIZINE 10 MG TAB PO SCH (08:32)
[2018-11-13] MEDS: ENOXAPARIN 100 MG/ML SYR SC SCH ×2 (08:32→20:39)
[2018-11-13] MEDS: FLUTICASONE NASAL 120 SPRAYS/16 GM MDI EACHNARE SCH (08:33)
[2018-11-13] MEDS: METOPROLOL TARTRATE 25 MG TAB PO SCH ×2 (08:33→20:39)
[2018-11-13] MEDS ORDERED: IOPAMIDOL (ISOVUE 370) 100 ML BTL IV ONE (10:37)
--- NOTE | 2018-11-13 13:43 | ASMTCMCOM ---
CM Note CM Note Notes: IV medications are continuing per chart review. CM to follow to determine needs prior to discharge. Plan: [facility] T[facility] company Date Signed: 11/13/2018 01:43 PM Electronically Signed By:MILES Watson
[2018-11-13] MEDS: CEPACOL LOZENGE PO PRN ×3 (14:57→22:18)
[2018-11-13] MEDS: ONDANSETRON 4 MG/2 ML VIAL IVP PRN (14:57)
--- NOTE | 2018-11-13 17:32 | SOAPPROG ---
Downtime Inpatient MD Late Entry SOAP Note: I reviewed Samir's esophogram and there was no evidence of leak or obstruction. He has a persistant gastric distention that could be exacerbating his symptoms. I discussed the findings with his nurse by phone and will add Reglan to his meds to help promote gastric emptying. Anaerobic cultures are growing a lactose parts advisor. He remains afebrile on Unasyn. I will discuss with ID tomorrow. Reculture for any fever spikes.
--- NOTE | 2018-11-13 17:57 | PCMIDPN ---
Assessment/Plan: Assessment/Plan: * Esophageal perforation with peritonitis/mediastinitis status post repair and incision and drainage plus esophageal stenting x2: Esophagram shows no evidence of residual leak post repeat stenting. No fever over last 24 hr. Pleural fluid cultures now show growth of lactobacillus. Lactobacillus will be covered well by penicillin derivative such as ampicillin/sulbactam. Based on positive culture findings, will plan 4 weeks of antibiotic therapy in total post drainage. If shows improvement, think component of this may be with p.o. antibiotics including consideration of Augmentin as previously outlined. * Leukocytosis: Stable findings. Continue to observe over time. Anticipate normalization likely to be slow. 11/13/18 17:48 Subjective: Patient complains of episodic cough and sense of abdominal distension. Started on full liquid diet this p.m.. Objective: Vital Signs Temp Pulse Resp BP Pulse Ox 36.7 C 97 18 122/76 H 94 11/13/18 15:29 11/13/18 15:29 11/13/18 15:29 11/13/18 15:29 11/13/18 15:29 Microbiology 11/08/18 14:00 Gram Stain - Final Pleural Fluid - Aspirate Laboratory Results 11/13/18 06:05 11/13/18 06:05 11/12/18 11/13/18 11/14/18 05:59 05:59 05:59 Intake Total 3146 4090 300 Output Total 1040 550 200 Balance 2106 3540 100 Unasyn # 11 Antibiotics # 18 Pleural culture 11/08/2018 lactobacillus - Physical Exam General Appearance: alert, no apparent distress, non-toxic EENT: No scleral icterus, No ET Tube Respiratory: crackles (Left base) Cardiac/Chest: regular rate, rhythm Abdomen: non-tender, distended (Mild) Skin: No rash - Line/s RUE PICC Lines: No drainage, No erythema ICD10 Worksheet Patient Problems: Problems Problem Status Onset Perforated viscus Acute
[2018-11-13] MEDS: guaiFENesin/CODEINE PHOS 10 ML UDCUP PO PRN ×2 (18:02→22:15)
[2018-11-13] MEDS: TPN 1 EA BAG IV SCH (20:39)
[2018-11-13] MEDS: METOCLOPRAMIDE 10 MG/10 ML UDL PO SCH (21:17)
[2018-11-14] MEDS: AMPICILLIN/SULBACTAM 3 GM in NS 100 ML IV SCH ×4 (04:54→23:25)
[2018-11-14] MEDS: METOCLOPRAMIDE 10 MG/10 ML UDL PO SCH (05:05)
--- NOTE | 2018-11-14 09:01 | SOAPPROG ---
SOAP Progress Note Assessment/Plan: Assessment:s/p repair of GE junction perforation POD #20-low grade temps improved, cbc today pending s/p deployment of esophageal covered stent POD #14/5-new stent placed by Dr Myers in good position on CXR new onset A-fib with RVR, currently in NSR nutritional deficit on TPN/difficulty eating due to pain with swallowing Plan: continue TPN today/liberalize diet and continue calorie count Therapeutic Lovenox/consider Eliquis at discharge continue Unasyn 10/27/18 07:11 10/28/18 10:11 10/29/18 10:55 10/30/18 10:47 10/31/18 07:14 11/01/18 08:17 11/02/18 06:47 11/03/18 07:29 11/04/18 12:38 11/04/18 14:25 11/05/18 08:13 11/05/18 08:16 11/07/18 11:34 11/08/18 09:29 11/09/18 06:58 11/10/18 15:56 11/11/18 09:01 11/12/18 06:50 11/13/18 05:53 11/14/18 08:59 Subjective: sitting up/less coughing Objective: Vital Signs Temp Pulse Resp BP Pulse Ox 37.2 C 92 20 132/75 H 93 11/14/18 08:00 11/14/18 08:00 11/14/18 08:00 11/14/18 08:00 11/14/18 04:00 Microbiology 11/08/18 14:00 Gram Stain - Final Pleural Fluid - Aspirate Laboratory Results 11/13/18 06:05 11/13/18 06:05 11/13/18 11/14/18 11/15/18 05:59 05:59 05:59 Intake Total 4090 2746 Output Total 550 1075 Balance 3540 1671 PT 15.8 SEC (12.0-15.0) H 11/13/18 06:05 INR 1.24 (0.83-1.16) H 11/13/18 06:05 Physical Exam - Physical Exam General Appearance: no apparent distress Respiratory: lungs clear, decreased breath sounds Cardiac/Chest: regular rate, rhythm, other (left chest tube drainage clearing) Abdomen: non-tender, soft Male Genitalia: deferred Rectal: deferred Skin: warm/dry Neuro/Psych: alert, normal mood/affect, oriented x 3 ICD10 Worksheet Patient Problems: Problems Problem Status Onset Perforated viscus Acute
[2018-11-14] MEDS: FLUTICASONE NASAL 120 SPRAYS/16 GM MDI EACHNARE SCH (09:22)
[2018-11-14] MEDS: CETIRIZINE 10 MG TAB PO SCH (09:22)
[2018-11-14] MEDS: ENOXAPARIN 100 MG/ML SYR SC SCH ×2 (09:22→21:11)
[2018-11-14] MEDS: METOPROLOL TARTRATE 25 MG TAB PO SCH ×2 (09:22→21:10)
[2018-11-14] MEDS: CEPACOL LOZENGE PO PRN ×2 (09:23→21:10)
--- NOTE | 2018-11-14 10:28 | PCMIDPN ---
Assessment/Plan: # Esophageal perforation causing Mediastinitis/peritonitis and L pleural effusion (10/27 neg and 11/08 Lactobacillus). Cx from initial procedure with MSSA and streptococcus. Stent in place, no leak remains --continue Unasyn, may be able to dc on PO Augmentin at discharge, planning 4 weeks from 11/08/18 --awaiting ability to tolerate PO and decrease CT output --triple lumen PICC, hopefully does not need PICC at dc therefore would not step down lumen size at this point # Leukocytosis : gradually improving meds, Abx #19 Unasyn 3gm IV q6h #12 Micro 11/08/18 Pleural culture: actobacillus 11/03/18 Pleural fluid cultures, negative. 10/29/18 Blood cultures x2 sets, negative. 10/25/18 Abdominal cultures with MSSA, strep mitis and strep thermophilus. Subjective: still coughing w eating starting to eat eggs 3 small liquid BM/day, no abdominal pain Still on TPN Objective: Vital Signs Temp Pulse Resp BP Pulse Ox 37.2 C 94 20 132/75 H 92 11/14/18 08:00 11/14/18 09:22 11/14/18 08:00 11/14/18 09:22 11/14/18 08:00 Microbiology 11/08/18 14:00 Gram Stain - Final Pleural Fluid - Aspirate Laboratory Results 11/13/18 06:05 11/13/18 06:05 11/13/18 11/14/18 11/15/18 05:59 05:59 05:59 Intake Total 4090 2746 Output Total 550 1075 Balance 3540 1671 - Physical Exam General Appearance: alert, no apparent distress EENT: other (MMM), No thrush Respiratory: crackles (L mid lung field), other (decrease bs L aase), No accessory muscle use Neck: supple Cardiac/Chest: regular rate, rhythm Extremities: No pedal edema Abdomen: non-tender, soft Male Genitalia: No bowers Skin: pallor, No rash Neuro/Psych: alert, normal mood/affect, oriented x 3 - Line/s RUE PICC Lines: No drainage, No erythema, No other (Triple lumen) - Time Spent With Patient Time Spent with Patient: greater than 35 minutes (reviewed plan of care with patient and family at bedside) Time Spent with Patient: Greater than 35 minutes spent on this patients care, greater than 50% of time spent counseling, educating, and coordinating care regarding the above mentioned plan. ICD10 Worksheet Patient Problems: Problems Problem Status Onset Perforated viscus Acute
[2018-11-14] MEDS ORDERED: LIDOCAINE 2% VISCOUS 15 ML UDCUP PO PRN (15:37)
[2018-11-14] MEDS: guaiFENesin/CODEINE PHOS 10 ML UDCUP PO PRN ×2 (17:51→21:55)
[2018-11-14] MEDS: MELATONIN 3 MG TAB PO SCH (21:10)
[2018-11-14] MEDS: TPN 1 EA BAG IV SCH (21:10)
[2018-11-14] MEDS: ONDANSETRON 4 MG/2 ML VIAL IVP PRN (21:52)
[2018-11-15] MEDS: AMPICILLIN/SULBACTAM 3 GM in NS 100 ML IV SCH ×3 (05:21→18:24)
[2018-11-15] MEDS: CETIRIZINE 10 MG TAB PO SCH (10:19)
[2018-11-15] MEDS: METOPROLOL TARTRATE 25 MG TAB PO SCH ×2 (10:19→21:25)
--- NOTE | 2018-11-15 10:19 | SOAPPROG ---
SOAP Progress Note Assessment/Plan: Assessment:s/p repair of GE junction perforation POD #21-low grade temps , cbc today ordered s/p deployment of esophageal covered stent POD #15/6-new stent placed by Dr Myers in good position on CXR new onset A-fib with RVR, currently in NSR nutritional deficit on TPN/difficulty eating due to pain with swallowing Plan: continue TPN today/liberalize diet and continue calorie count Therapeutic Lovenox/consider Eliquis at discharge continue Unasyn per ID/discussed with Dr. Francisco 10/27/18 07:11 18 10:11 18 10:55 10/30/18 10:47 10/31/18 07:14 11/01/18 08:17 11/02/18 06:47 11/03/18 07:29 11/04/18 12:38 11/04/18 14:25 11/05/18 08:13 11/05/18 08:16 11/07/18 11:34 11/08/18 09:29 11/09/18 06:58 11/10/18 15:56 11/11/18 09:01 11/12/18 06:50 11/13/18 05:53 11/14/18 08:59 11/15/18 09:55 11/15/18 10:20 Subjective: coughing persists/tolerated soft foods, some nausea loose stools 3-4 x day Objective: Vital Signs Temp Pulse Resp BP Pulse Ox 36.9 C 93 20 127/69 H 91 L 11/15/18 09:21 11/15/18 09:21 11/15/18 09:21 11/15/18 09:21 11/15/18 09:21 Microbiology 11/08/18 14:00 Gram Stain - Final Pleural Fluid - Aspirate Laboratory Results 11/13/18 06:05 11/15/18 05:23 11/14/18 11/15/18 11/16/18 05:59 05:59 05:59 Intake Total 2746 2689 Output Total 1075 1775 200 Balance 1671 914 -200 PT 15.8 SEC (12.0-15.0) H 11/13/18 06:05 INR 1.24 (0.83-1.16) H 11/13/18 06:05 - Time Spent With Patient Time Spent With Patient: 40 - Pending Discharge Pending Discharge Within 24 Hours: No Pending Discharge Within 48 Hours: No Physical Exam - Physical Exam General Appearance: mild distress Respiratory: crackles (left base) Cardiac/Chest: regular rate, rhythm Abdomen: non-tender, soft Rectal: deferred Neuro/Psych: alert, normal mood/affect, oriented x 3 ICD10 Worksheet Patient Problems: Problems Problem Status Onset Perforated viscus Acute
[2018-11-15] MEDS: FLUTICASONE NASAL 120 SPRAYS/16 GM MDI EACHNARE SCH (10:20)
[2018-11-15] MEDS: ENOXAPARIN 100 MG/ML SYR SC SCH ×2 (10:20→21:27)
[2018-11-15 12:31] LABS: PLATELET COUNT 476 10^3/uL (150-400)
--- NOTE | 2018-11-15 15:51 | PCMIDPN ---
Assessment/Plan: # Esophageal perforation causing Mediastinitis/peritonitis and L pleural effusion (10/27 neg and 11/08 Lactobacillus). Cx from initial procedure with MSSA and streptococcus. Stent in place, no leak remains. Having a rougher day today but is probably improving gradually --continue Unasyn, may be able to dc on PO Augmentin at discharge, stop 12/06/18 , 4 weeks s/p last drainage --awaiting ability to tolerate PO and decrease CT output, normalization of wbc before dc --triple lumen PICC, hopefully does not need PICC at dc therefore would not step down lumen size at this point # Leukocytosis : gradually improving meds, Abx #20 Unasyn 3gm IV q6h #13 Micro 11/08/18 Pleural culture: lactobacillus 11/03/18 Pleural fluid cultures, negative. 10/29/18 Blood cultures x2 sets, negative. 10/25/18 Abdominal cultures with MSSA, strep mitis and strep thermophilus. Subjective: a bit more coughing today, worse when supine dysphagia somewhat worse today Objective: Vital Signs Temp Pulse Resp BP Pulse Ox 36.9 C 86 20 94/67 L 93 11/15/18 11:45 11/15/18 11:45 11/15/18 11:45 11/15/18 11:45 11/15/18 11:45 Microbiology 11/08/18 14:00 Gram Stain - Final Pleural Fluid - Aspirate Anaerobic Culture - Final Lactobacillus Species Laboratory Results 11/15/18 12:15 11/15/18 05:23 11/14/18 11/15/18 11/16/18 05:59 05:59 05:59 Intake Total 2746 2689 Output Total 1075 1775 325 Balance 1671 914 -325 - Physical Exam General Appearance: alert, no apparent distress, thin, non-toxic Respiratory: crackles (LLL, CT remains in place serosang), No accessory muscle use Neck: supple Cardiac/Chest: regular rate, rhythm Extremities: No pedal edema Skin: No rash Neuro/Psych: alert, normal mood/affect, oriented x 3 - Time Spent With Patient Time Spent with Patient: greater than 35 minutes Time Spent with Patient: Greater than 35 minutes spent on this patients care, greater than 50% of time spent counseling, educating, and coordinating care regarding the above mentioned plan. ICD10 Worksheet Patient Problems: Problems Problem Status Onset Perforated viscus Acute
[2018-11-15] MEDS: guaiFENesin/CODEINE PHOS 10 ML UDCUP PO PRN (16:32)
[2018-11-15] MEDS: MELATONIN 3 MG TAB PO SCH (21:25)
[2018-11-15] MEDS: TPN 1 EA BAG IV SCH (21:25)
[2018-11-16] MEDS: AMPICILLIN/SULBACTAM 3 GM in NS 100 ML IV SCH ×4 (00:02→18:47)
[2018-11-16] MEDS: guaiFENesin/CODEINE PHOS 10 ML UDCUP PO PRN (00:12)
[2018-11-16] MEDS: CEPACOL LOZENGE PO PRN (00:14)
[2018-11-16] MEDS: ONDANSETRON 4 MG/2 ML VIAL IVP PRN (01:07)
--- NOTE | 2018-11-16 08:47 | SOAPPROG ---
SOAP Progress Note Assessment/Plan: Assessment:s/p repair of GE junction perforation POD #22- afebrile with declining wbc s/p deployment of esophageal covered stent POD #16/7-new stent placed by Dr Myers in good position on CXR new onset A-fib with RVR, currently in NSR nutritional deficit on TPN/difficulty eating due to pain with swallowing Plan: start weaning TPN today/liberalize diet and continue calorie count Therapeutic Lovenox/consider Eliquis at discharge continue Unasyn per ID/discussed with Dr. Francisco CT chest before removal of thoracostomy tube 10/27/18 07:11 1218 10:11 18 10:55 10/30/18 10:47 10/31/18 07:14 11/01/18 08:17 11/02/18 06:47 11/03/18 07:29 11/04/18 12:38 11/04/18 14:25 11/05/18 08:13 11/05/18 08:16 11/07/18 11:34 11/08/18 09:29 11/09/18 06:58 11/10/18 15:56 11/11/18 09:01 11/12/18 06:50 11/13/18 05:53 11/14/18 08:59 11/15/18 09:55 11/15/18 10:20 11/16/18 08:45 Subjective: rough night last night/coughing and nausea Objective: Vital Signs Temp Pulse Resp BP Pulse Ox 36.8 C 105 H 20 129/82 H 97 11/15/18 20:00 11/15/18 20:00 11/15/18 20:00 11/15/18 20:00 11/15/18 20:00 Microbiology 11/08/18 14:00 Gram Stain - Final Pleural Fluid - Aspirate Anaerobic Culture - Final Lactobacillus Species Laboratory Results 11/15/18 12:15 11/15/18 05:23 11/15/18 11/16/18 11/17/18 05:59 05:59 05:59 Intake Total 7129 1446 Output Total 1775 555 Balance 914 891 PT 15.8 SEC (12.0-15.0) H 11/13/18 06:05 INR 1.24 (0.83-1.16) H 11/13/18 06:05 - Pending Discharge Pending Discharge Within 24 Hours: No Pending Discharge Within 48 Hours: No Physical Exam - Physical Exam General Appearance: no apparent distress Respiratory: lungs clear, decreased breath sounds, crackles (left base), other ( left chest tube output cloudy-serous only 50ml/24 hours reported) Cardiac/Chest: regular rate, rhythm Abdomen: non-tender, soft Male Genitalia: deferred Rectal: deferred Neuro/Psych: alert, normal mood/affect, oriented x 3 ICD10 Worksheet Patient Problems: Problems Problem Status Onset Perforated viscus Acute
[2018-11-16] MEDS: FLUTICASONE NASAL 120 SPRAYS/16 GM MDI EACHNARE SCH (09:31)
[2018-11-16] MEDS: ENOXAPARIN 100 MG/ML SYR SC SCH ×2 (09:32→20:46)
[2018-11-16] MEDS: CETIRIZINE 10 MG TAB PO SCH (09:33)
[2018-11-16] MEDS: METOPROLOL TARTRATE 25 MG TAB PO SCH ×2 (09:33→20:49)
--- NOTE | 2018-11-16 14:38 | ASMTCMCOM ---
CM Note CM Note Notes: 11/16/2018 Case Management Note Discussed with RN. Discharge date is unclear at this time. Pt may require the services of a home infusion company upon discharge. Discharge needs are unclear. Case Management d/c poc: to be determined, likely a home infusion agency Case Management will continue to follow. Date Signed: 11/16/2018 02:36 PM Electronically Signed By:Svetlana Storey RN
--- NOTE | 2018-11-16 16:59 | PCMIDPN ---
Assessment/Plan: # Esophageal perforation causing Mediastinitis/peritonitis and L pleural effusion (10/27 neg and 1/ Lactobacillus). Cx from initial procedure with MSSA and streptococcus. Imaging demonstrated no further leak since stent placement in the esophagus. Patient still having a lot of challenges related to coughing and difficulty eating --continue Unasyn, may be able to dc on PO Augmentin at discharge, stop 12/06/18 , 4 weeks s/p last drainage --awaiting ability to tolerate PO and decrease CT output, normalization of wbc before dc. Plan CT scan prior to removal of chest tube --triple lumen PICC, hopefully does not need PICC at dc therefore would not step down lumen size at this point # Cough, near ppt vomiting --try albuterol breathing treatment as seems some upper airway spasming on exam today --Robitussin AC not working will try Tussionex liquid. Also will add Tessalon Perles although these cannot be crushed meds, Abx #21 Unasyn 3gm IV q6h #14 Micro 11/08/18 Pleural culture: Rare lactobacillus 11/03/18 Pleural fluid cultures, negative. 10/29/18 Blood cultures x2 sets, negative. 10/25/18 Abdominal cultures with MSSA, strep mitis and strep thermophilus. Subjective: Patient is unable to sleep due to coughing, coughing last night nearly caused vomiting Objective: Vital Signs Temp Pulse Resp BP Pulse Ox 36.8 C 90 19 124/83 H 94 11/16/18 11:36 11/16/18 11:36 11/16/18 11:36 11/16/18 11:36 11/16/18 08:00 Microbiology 11/08/18 14:00 Gram Stain - Final Pleural Fluid - Aspirate Anaerobic Culture - Final Lactobacillus Species Laboratory Results 11/15/18 12:15 11/15/18 05:23 11/15/18 11/16/18 11/17/18 05:59 05:59 05:59 Intake Total 2689 1446 1648 Output Total 1775 555 Balance 644 895 2453 - Physical Exam General Appearance: alert, no apparent distress EENT: pale conjunctiva, No scleral icterus, No thrush Respiratory: crackles (Left lower 1/2), coarse breath sounds (Left hemithorax), No accessory muscle use Cardiac/Chest: regular rate, rhythm Skin: No rash Neuro/Psych: alert, normal mood/affect, oriented x 3 - Line/s RUE PICC Lines: No drainage, No erythema - Time Spent With Patient Time Spent with Patient: greater than 35 minutes (Care coordinated with nursing and pharmacy) Time Spent with Patient: Greater than 35 minutes spent on this patients care, greater than 50% of time spent counseling, educating, and coordinating care regarding the above mentioned plan. ICD10 Worksheet Patient Problems: Problems Problem Status Onset Perforated viscus Acute
[2018-11-16] MEDS: HYDROcodone/CPM TUSSIONEX 5 ML UDSYR PO PRN (20:45)
[2018-11-16] MEDS: TPN 1 EA BAG IV SCH (20:53)
[2018-11-16] MEDS: MELATONIN 3 MG TAB PO SCH (20:53)
[2018-11-17] MEDS: AMPICILLIN/SULBACTAM 3 GM in NS 100 ML IV SCH ×4 (00:22→17:53)
[2018-11-17 05:06] LABS: PLATELET COUNT 418 10^3/uL (150-400)
[2018-11-17] MEDS: ENOXAPARIN 100 MG/ML SYR SC SCH ×2 (09:38→21:30)
[2018-11-17] MEDS: METOPROLOL TARTRATE 25 MG TAB PO SCH ×2 (09:38→21:27)
[2018-11-17] MEDS: CETIRIZINE 10 MG TAB PO SCH (09:38)
--- NOTE | 2018-11-17 09:38 | SOAPPROG ---
SOAP Progress Note Assessment/Plan: Assessment:s/p repair of GE junction perforation POD #23- febrile with declining wbc s/p deployment of esophageal covered stent POD #17/8-new stent placed by Dr Myers in good position on CXR new onset A-fib with RVR, currently in NSR nutritional deficit on TPN starting to wean with increased oral intake Plan:Blood cultures x 2 sets/CT chest with contrast for fever work up start weaning TPN today/liberalize diet and continue calorie count unless surgery/procedure needed Therapeutic Lovenox/consider Eliquis at discharge continue Unasyn per ID/discussed with Dr. Francisco 12 07:11 18 10:11 18 10:55 10/30/18 10:47 10/31/18 07:14 11/01/18 08:17 11/02/18 06:47 11/03/18 07:29 11/04/18 12:38 11/04/18 14:25 11/05/18 08:13 11/05/18 08:16 11/07/18 11:34 11/08/18 09:29 11/09/18 06:58 11/10/18 15:56 11/11/18 09:01 11/12/18 06:50 11/13/18 05:53 11/14/18 08:59 11/15/18 09:55 11/15/18 10:20 11/16/18 08:45 11/17/18 09:36 Subjective: feels about the same/had eggs for dinner last night night sweats/no vomiting Objective: Vital Signs Temp Pulse Resp BP Pulse Ox 37.6 C 93 20 112/77 93 11/17/18 07:38 11/17/18 07:38 11/17/18 07:38 11/17/18 07:38 11/17/18 07:38 Laboratory Results 11/17/18 03:50 11/17/18 02:58 11/16/18 11/17/18 11/18/18 05:59 05:59 05:59 Intake Total 1446 2689 Output Total 555 1875 400 Balance 891 814 -400 PT 15.8 SEC (12.0-15.0) H 11/13/18 06:05 INR 1.24 (0.83-1.16) H 11/13/18 06:05 - Pending Discharge Pending Discharge Within 24 Hours: No Pending Discharge Within 48 Hours: No Physical Exam - Physical Exam General Appearance: alert, no apparent distress Cardiac/Chest: other (CT output serous/minimal) Neuro/Psych: normal mood/affect, oriented x 3 ICD10 Worksheet Patient Problems: Problems Problem Status Onset Perforated viscus Acute
[2018-11-17] MEDS: FLUTICASONE NASAL 120 SPRAYS/16 GM MDI EACHNARE SCH (09:41)
--- NOTE | 2018-11-17 11:22 | PCMIDPN ---
Assessment/Plan: Assessment: Esophageal perforation-status post operative repair. Stent placed earlier in his stay and then replaced three days ago due to migration. Repeat chest x-ray yesterday confirms good placement of the stent. White blood cell count continues to decrease despite the fact that he had a fever overnight. Continue to cover with IV Unasyn. The patient's pain and spasms seem to have resolved a great deal from Tuesday. Agree with check of the area with CT scan at this point given the fever. Agree with repeat blood cultures. Agree with potential transition over to p.o. Augmentin at point of discharge. Plan: 1. Continue IV Unasyn. 2. Follow up on repeat CT scan today. 3. Check 2 sets of blood cultures. Subjective: Patient is sitting up comfortably in his chair. His pain in his chest as seem to subside since Tuesday. He does acknowledge having fever overnight but he is unaware of any new complaints or focal areas concern. Objective: Unasyn # 15 Vital Signs Temp Pulse Resp BP Pulse Ox 37.6 C 93 20 112/77 93 11/17/18 07:38 11/17/18 07:38 11/17/18 07:38 11/17/18 07:38 11/17/18 07:38 Laboratory Results 11/17/18 03:50 11/17/18 02:58 11/16/18 11/17/18 11/18/18 05:59 05:59 05:59 Intake Total 1446 2689 Output Total 555 1875 400 Balance 891 814 -400 - Physical Exam General Appearance: WD/WN, alert, no apparent distress, non-toxic Respiratory: lungs clear, normal breath sounds, No respiratory distress Cardiac/Chest: regular rate, rhythm, No tachycardia Skin: normal color, warm/dry, No rash Neuro/Psych: alert, normal mood/affect, oriented x 3 ICD10 Worksheet Patient Problems: Problems Problem Status Onset Perforated viscus Acute
[2018-11-17] MEDS ORDERED: IOPAMIDOL (ISOVUE 370) 100 ML BTL IV ONE (13:10)
[2018-11-17] MEDS: HYDROcodone/CPM TUSSIONEX 5 ML UDSYR PO PRN (17:53)
[2018-11-17] MEDS: MELATONIN 3 MG TAB PO SCH (21:27)
[2018-11-17] MEDS: ONDANSETRON 4 MG/2 ML VIAL IVP PRN (21:38)
[2018-11-17] MEDS: TPN 1 EA BAG IV SCH (21:44)
[2018-11-18] MEDS: AMPICILLIN/SULBACTAM 3 GM in NS 100 ML IV SCH ×4 (00:35→20:05)
[2018-11-18] MEDS: CEPACOL LOZENGE PO PRN (01:57)
[2018-11-18] MEDS: ALTEPLASE 2 MG VIAL IVP PRN (02:05)
[2018-11-18 04:56] LABS: PLATELET COUNT 411 10^3/uL (150-400)
[2018-11-18] MEDS: FLUTICASONE NASAL 120 SPRAYS/16 GM MDI EACHNARE SCH (09:33)
[2018-11-18] MEDS: METOPROLOL TARTRATE 25 MG TAB PO SCH ×2 (09:52→22:42)
--- NOTE | 2018-11-18 09:54 | SOAPPROG ---
SOAP Progress Note Assessment/Plan: Assessment:s/p repair of GE junction perforation POD #24- febrile with rising wbc s/p deployment of esophageal covered stent POD #18/9-new stent placed by Dr Myers in good position on CT/some contrast around outside of proximal portion of stent without convincing evidence of leak new onset A-fib with RVR, currently in NSR nutritional deficit on TPN starting to wean with increased oral intake Plan: I reviewed CT images with Samir and recommended surgical decortication of the left posterior thorax. I do not believe that it will be possible to do this with VATS and we discussed the risks and expected recovery. He would like to discuss with his Teri Talamantes held for possible surgery later today 10/27/18 07:11 10/28/18 10:11 10/29/18 10:55 10/30/18 10:47 10/31/18 07:14 11/01/18 08:17 11/02/18 06:47 11/03/18 07:29 11/04/18 12:38 11/04/18 14:25 11/05/18 08:13 11/05/18 08:16 11/07/18 11:34 11/08/18 09:29 11/09/18 06:58 11/10/18 15:56 11/11/18 09:01 11/12/18 06:50 11/13/18 05:53 11/14/18 08:59 11/15/18 09:55 11/15/18 10:20 11/16/18 08:45 11/17/18 09:36 11/18/18 09:50 Objective: Vital Signs Temp Pulse Resp BP Pulse Ox 37.6 C 99 14 108/56 L 91 L 11/18/18 06:53 11/18/18 06:53 11/18/18 06:53 11/18/18 06:53 11/18/18 06:53 Laboratory Results 11/18/18 04:30 11/17/18 02:58 11/17/18 11/18/18 11/19/18 05:59 05:59 05:59 Intake Total 2689 1901 Output Total 1875 1530 Balance 814 371 PT 15.8 SEC (12.0-15.0) H 11/13/18 06:05 INR 1.24 (0.83-1.16) H 11/13/18 06:05 Physical Exam - Physical Exam General Appearance: alert, mild distress Respiratory: decreased breath sounds, other (CT without air leak/cloudy serous drainage) Cardiac/Chest: regular rate, rhythm Abdomen: non-tender, soft Male Genitalia: deferred Rectal: deferred Skin: warm/dry Extremities: non-tender Neuro/Psych: alert, normal mood/affect, oriented x 3 ICD10 Worksheet Patient Problems: Problems Problem Status Onset Perforated viscus Acute
[2018-11-18] MEDS: CETIRIZINE 10 MG TAB PO SCH (10:24)
--- NOTE | 2018-11-18 12:06 | PCMIDPN ---
Assessment/Plan: 1. Esophageal perforation with peritonitis and mediastinitis status post exploratory laparotomy with repair/esophageal stenting x2 without residual leak: Agree that VATS would be beneficial in the setting of persistent fevers, leukocytosis, and evidence of ongoing infection/pleural rind on the left side. Of note, there is no evidence of a nosocomial infection at this point in time as source of fever, such as C difficile colitis, line infection, or other. No evidence of drug rash, eosinophilia or systemic hypersensitivity as manifested by AIN to suggest drug fever. Long conversation with patient and his today , expressing agreement with Dr. Leon plan. He will have surgery this afternoon. Repeat cultures will be sent. Continue Unasyn, which will cover previous isolates including recent isolate of lactobacillus rhamnosus. 2. Black hairy tongue: Etiology likely multifactorial, with contribution from antibiotics. Explained that this is a benign condition. Will give him clotrimazole troches in case yeast contributing. Over 25 min spent with this patient today. Subjective: I was notified at 2 this morning of patient having recurrent fever up to 38.7, "triggering sepsis protocol."Other vital signs were stable, so recommended no change in treatment. Reviewed CT scan this morning with Dr. Cannon, and discussed case with Dr. Leon. Persistent rind/empyema on the left side felt likely cause of ongoing fevers and leukocytosis. No evidence of persistent esophageal leak. Speaking with the patient, he is somewhat dejected about needing surgery. Proceeded to have long conversation with patient and his about this. All questions were answered. Patient denies nausea, vomiting, chest pain, abdominal pain, more than 2 loose stools per day or bloody stools, no rash or pain or swelling of his limbs. PICC line is working fine. Was having significant issues with chronic coughing, but this has improved over the past day with cough suppressants. Objective: Unasyn 3 g IV q.6 hours day 16 (antibiotics day 22) T-max 38.7 degrees 92% on room air Vital Signs Temp Pulse Resp BP Pulse Ox 37.6 C 84 14 112/76 94 11/18/18 06:53 11/18/18 11:46 11/18/18 11:46 11/18/18 11:46 11/18/18 11:46 Laboratory Results 11/18/18 04:30 11/17/18 02:58 11/17/18 11/18/18 11/19/18 05:59 05:59 05:59 Intake Total 9627 3402 Output Total 4987 7410 Balance 814 371 Most recent cultures with lactobacillus rhamnosus, rare from pleural fluid November 08 Blood cultures November 17 no growth so far - Physical Exam General Appearance: alert, no apparent distress EENT: other (Black hairy tongue . No evidence of thrush on his buccal mucosa. No sinus process tenderness or discharge from the nares.) Respiratory: other (Chest tube left side. Diminished breath sounds left greater than right base. Upper lung clarke fairly well aerated right greater than left no rub.) Cardiac/Chest: regular rate, rhythm, other, No systolic murmur Extremities: other (PICC line right upper extremity looks fine with no arm swelling or erythema or tenderness) Abdomen: non-tender, soft, other (Previous abdominal incision is well healed) Skin: No rash, No embolic lesions Neuro/Psych: no motor/sensory deficits, oriented x 3 ICD10 Worksheet Patient Problems: Problems Problem Status Onset Perforated viscus Acute
[2018-11-18] MEDS ORDERED: BUPIVACAINE/EPI 0.25% 30 ML SDV ONE (13:45)
[2018-11-18] MEDS ORDERED: LR 1,000 ML IV ONE (14:36)
[2018-11-18] MEDS ORDERED: LIDOCAINE 2% 100 MG/5 ML SYR ONE (14:54)
[2018-11-18] MEDS ORDERED: PROPOFOL 200 MG/20 ML VIAL ONE (14:54)
[2018-11-18] MEDS ORDERED: ROCURONIUM 100 MG/10 ML VIAL ONE (14:54)
--- NOTE | 2018-11-18 15:16 | PDANEPAE ---
ANE Past Medical History - Cardiovascular History Hx Hypertension: No Hx Arrhythmias: Yes Hx Chest Pain: No Hx Coronary Artery / Peripheral Vascular Disease: No Hx CHF / Valvular Disease: No Hx Palpitations: Yes - Pulmonary History Hx COPD: No Hx Asthma/Reactive Airway Disease: No Hx Recent Upper Respiratory Infection: No Hx Oxygen in Use at Home: No Hx Sleep Apnea: No Sleep Apnea Screening Result - Last Documented: Positive Pulmonary History Comment: Pneumothorax s/p esophageal perforation - Endocrine History Hx Diabetes: No - Renal History Hx Renal Disorders: No ANE Review of Systems Review of Systems: ANE Patient History - Allergies Allergies/Adverse Reactions: No Known Allergies Allergy (Unverified 10/25/18 17:32) - Home Medications Home Medications: Budesonide [Rhinocort Allergy] 1 spray NS DAILY 10/25/18 [Last Taken 10/25/18] Loratadine 10 mg PO DAILY 10/25/18 [Last Taken 10/25/18] Omeprazole 40 mg PO DAILY 10/25/18 [Last Taken 10/25/18] - NPO status NPO Since - Liquids (Date): 10/25/18 NPO Since - Liquids (Time): 13:00 NPO Since - Solids (Date): 10/25/18 NPO Since - Solids (Time): 13:00 - Smoking Hx Smoking Status: Never smoked ANE Labs/Vital Signs - Labs Result Diagrams: 11/18/18 04:30 11/17/18 02:58 - Vital Signs Blood Pressure: 116/77 Heart Rate: 90 Respiratory Rate: 14 O2 Sat (%): 92 Height: 182.88 cm Weight: 83.4 kg ANE Physical Exam - Airway Neck exam: FROM Mallampati Score: Class 1 Mouth exam: normal dental/mouth exam - Pulmonary Pulmonary: no respiratory distress, reduced air movement - Cardiovascular Cardiovascular: regular rate and rhythym - ASA Status ASA Status: I ANE Anesthesia Plan Anesthesia Plan: general endotracheal anesthesia
[2018-11-18] MEDS ORDERED: BUPIVACAINE 0.25% 30 ML SDV ONE (15:23)
[2018-11-18] MEDS ORDERED: PHM DO NOT USE-BUPIVACAINE 0.25% THORACOTOMY MISC SCH (15:30)
[2018-11-18] MEDS ORDERED: BACITRACIN ZINC 0.5 OZ OINTTUBE TP ONE (16:59)
[2018-11-18] MEDS ORDERED: ONDANSETRON 4 MG/2 ML VIAL IVP PRN (17:26)
[2018-11-18] MEDS ORDERED: ALBUTEROL 3 ML DEYVIAL IH PRN (17:26)
[2018-11-18] MEDS ORDERED: NALOXONE HCL 0.4 MG/ML INJ IVP PRN ×2 (17:26→17:57)
[2018-11-18] MEDS: fentaNYL 100 MCG/2 ML INJ IVP PRN ×2 (17:27→17:37)
--- NOTE | 2018-11-18 17:28 | POSTANESTH ---
Post Anesthetic Evaluation Cardiovascular Status: Similar to Pre-Op Cond Respiratory Status: Similar to Pre-op Cond. Level of Consciousness/Mental Status: Mildly Sleepy, Arousable Pain Control: Adequate, Prn Tx Ordered Nausea/Vomiting Control: Adequate, Prn Tx Ordered Complications Possibly Related to Anesthesia: None Noted
[2018-11-18] MEDS ORDERED: fentaNYL 100 MCG/2 ML INJ ONE (17:30)
--- NOTE | 2018-11-18 17:37 | POSTOPPROG ---
Post Op Note Date of Operation: 11/18/18 Surgeon: Shun Leon (, FACS) Anesthesiologist: Jamar Bliss MD Anesthesia: GET(General Endotracheal) Pre-op Diagnosis: left loculated empyema Post-op Diagnosis: same Procedure: VATS decortication Findings: fibrinous exudate, extensive Inf/Abcess present in the surg proc area at time of surgery?: Yes Depth: Organ Space EBL: 50-100 (50 ml) Complications: inadvertant PICC line removal Drains: Other (left CT #36Fr x 2)
[2018-11-18] MEDS ORDERED: HYDROmorphONE/DILAUDID 2 MG/ML INJ ONE ×2 (17:53→18:24)
[2018-11-18] MEDS ORDERED: HYDROmorphONE/DILAUDID 2 MG/ML INJ IVP PRN (17:57)
[2018-11-18] MEDS: HYDROmorphONE/DILAUDID 2 MG/ML INJ IVP PRN ×2 (18:00→18:26)
[2018-11-18] MEDS ORDERED: ONDANSETRON 4 MG/2 ML VIAL ONE (18:35)
[2018-11-18] MEDS: HYDROmorphONE/DILAUDID 1 MG/ML INJ IVP PRN (20:12)
[2018-11-18] MEDS: CLOTRIMAZOLE 10 MG TROCHE PO SCH ×3 (20:37→22:44)
[2018-11-18] MEDS ORDERED: HYDROcodone/CPM TUSSIONEX 5 ML UDSYR PO PRN (21:49)
[2018-11-18] MEDS: MELATONIN 3 MG TAB PO SCH (22:43)
[2018-11-18] MEDS: TPN 1 EA BAG IV SCH (22:45)
[2018-11-19] MEDS: HYDROmorphONE/DILAUDID 1 MG/ML INJ IVP PRN ×3 (00:10→06:29)
[2018-11-19] MEDS: AMPICILLIN/SULBACTAM 3 GM in NS 100 ML IV SCH ×4 (00:38→18:44)
[2018-11-19] MEDS: ONDANSETRON 4 MG/2 ML VIAL IVP PRN (04:18)
--- NOTE | 2018-11-19 04:50 | GOP ---
DATE OF OPERATION: 11/18/2018 SURGEON: Shun Leon MD, FACS ANESTHESIA: General endotracheal. ANESTHESIOLOGIST: Levi Bliss MD. PREOPERATIVE DIAGNOSIS: Left thoracic empyema. POSTOPERATIVE DIAGNOSIS: Left thoracic empyema. PROCEDURE PERFORMED: VATS (thoracoscopy) left pulmonary decortication and drainage. FINDINGS: Extensive fibrinous exudate involving the visceral and parietal pleura, principally posteriorly and along the base of the chest with pulmonary adhesions throughout the remainder of the chest. Previously deployed 16-Bahraini pigtail catheter removed and replaced with two 36-Bahraini chest tubes, right angle and straight. ESTIMATED BLOOD LOSS: 50 mL. DESCRIPTION OF PROCEDURE: After informed consent was obtained, the patient was brought to the operating room and placed under general anesthesia via double- lumen endotracheal tube. Tube position was confirmed by bronchoscopy. The patient was then placed in right lateral decubitus position. Carefully padding all pressure points. The previously placed pigtail catheter was left in place and prepped into the field. Before proceeding, a time-out and identification of the patient was performed. Because I anticipated a relatively short operation a Taveras catheter was not placed. He had SCD stockings operating during the procedure. Anticoagulation had been held since the night before. The left posterior axillary line 6th interspace was infiltrated with 0.25% Marcaine down to the 6th rib and gentle blunt dissection used to access the pleura. An 8-Bahraini port was established and a thoracoscope was introduced. This was used to gently create a working space the lung from the parietal pleura and 1 lung anesthesia was performed during this portion of the operation. As the lung was successfully liberated from its adhesions to the parietal pleura the lung was collapsed starting at the apex extending through the lingula and inferiorly around the lower lobe, which was nearly completely circumferentially encased with the fibrinous exudate. As we broke into this part of the chest cavity, it was clear that it was feasible to decorticate the lung from a VATS approach. A 2nd port was established in the 4th intercostal space posterior axillary line, moving the scope to this position and enlarging the 1st port to a 15 mm port. This allowed introduction of thoracoscopic instruments to continue the decortication. As the lung was freed up between the visceral and parietal pleura the fibrinous exudate was stripped off both without any apparent pulmonary injury. This was slow and time consuming, but ultimately resulted in complete decortication of the remainder of the lung. The previous pigtail catheter was identified and removed from the operative field and discarded. The anterior portion of the chest was liberated from its adhesions and additional fibrinous exudate removed along the mediastinum. The entire lower lobe was from the diaphragm and posteriorly to the posterior sulcus. The chest cavity was then irrigated with 3 L of normal saline solution. Specimens from the fibrinous exudate and pleura were submitted for aerobes, anaerobes, and fungal cultures. After irrigating, hemostasis appeared secure. Two 36-Bahraini chest tubes were brought onto the field. The 1st was passed through a prior chest tube site in the 8th intercostal space and was directed posteriorly. This was a right angle tube. A 36-Bahraini straight chest tube was placed through the 6th intercostal space and directed posteriorly and toward the apex. Both were secured to skin with interrupted 0 silk suture. The lung was then inflated under direct visualization without air leaks observed. The chest tubes were secured to a Pleur-Evac device with a Y connector and placed on suction. The 8 mm port site was closed with continuous running 4-0 Monocryl suture followed by Dermabond. Two ON-Q catheters were tunneled in the 6th and 8th interspaces respectively and secured to the skin with Dermabond. These were primed with 0.25% Marcaine and attached to a 270 mL bulb with continuous infusion of 4 mL/h of 0.25% Marcaine. Xeroform gauze was placed around the chest tube exit sites. Sterile gauze dressings were placed followed by an OpSite and then secured with tape. The patient was returned to a supine position for extubation and unfortunately when this was occurring, his PICC line became dislodged and was inadvertently removed. Dr. Bliss then placed a 16-gauge IV in his left wrist for fluid and medication administration. As the patient was close to being weaned off his TPN, it will be unlikely that this will need to be replaced, though we were unable to culture the tip as it was contaminated. The patient was returned extubated to the recovery room in satisfactory condition. Needle, sponge, and instrument counts were correct. COMPLICATIONS: None. /[id number]/MODL MTDD
[2018-11-19 04:54] LABS: PLATELET COUNT 413 10^3/uL (150-400)
[2018-11-19] MEDS ORDERED: KETOROLAC 30 MG/1 ML SDV IVP ONE (06:30)
[2018-11-19] MEDS: CLOTRIMAZOLE 10 MG TROCHE PO SCH ×5 (06:31→22:39)
--- NOTE | 2018-11-19 06:46 | SOAPPROG ---
SOAP Progress Note Assessment/Plan: Assessment:s/p repair of GE junction perforation POD #25- s/p left VATS decortication POD#1 s/p deployment of esophageal covered stent POD #19/10-new stent placed by Dr Myers in good position on CT/some contrast around outside of proximal portion of stent without convincing evidence of leak new onset A-fib with RVR, currently in NSR nutritional deficit on TPN starting to wean with increased oral intake Plan: diet as tolerated continue Unasyn, check cultures and adjust coverage as needed restart Lovenox oral meds/Ketorolac trial x 24 hours Iliana Leon MD, FACS 10/27/18 07:11 10/28/18 10:11 10/29/18 10:55 10/30/18 10:47 10/31/18 07:14 11/01/18 08:17 11/02/18 06:47 11/03/18 07:29 11/04/18 12:38 11/04/18 14:25 11/05/18 08:13 11/05/18 08:16 11/07/18 11:34 11/08/18 09:29 11/09/18 06:58 11/10/18 15:56 11/11/18 09:01 11/12/18 06:50 11/13/18 05:53 11/14/18 08:59 11/15/18 09:55 11/15/18 10:20 11/16/18 08:45 11/17/18 09:36 11/18/18 09:50 11/19/18 06:42 Subjective: pain with coughing/deep breathing Objective: Vital Signs Temp Pulse Resp BP Pulse Ox 37.7 C 109 H 17 127/84 H 95 11/19/18 04:02 11/19/18 04:02 11/19/18 04:02 11/19/18 04:02 11/19/18 04:02 Microbiology 11/18/18 16:08 Gram Stain - Final Lung - Eswab 11/18/18 14:06 Gram Stain - Final Lung - Tissue Laboratory Results 11/19/18 03:55 11/19/18 03:55 11/18/18 11/19/18 11/20/18 05:59 05:59 05:59 Intake Total 1901 1180 Output Total 1530 850 140 Balance 371 330 -140 PT 15.8 SEC (12.0-15.0) H 11/13/18 06:05 INR 1.24 (0.83-1.16) H 11/13/18 06:05 - Pending Discharge Pending Discharge Within 24 Hours: No Pending Discharge Within 48 Hours: No Physical Exam - Physical Exam General Appearance: alert, mild distress Respiratory: lungs clear, decreased breath sounds, other (CT output serosanguinous, no air leak) Cardiac/Chest: regular rate, rhythm, tachycardia Abdomen: non-tender, soft Male Genitalia: deferred Rectal: deferred Skin: warm/dry Neuro/Psych: alert, normal mood/affect, oriented x 3 ICD10 Worksheet Patient Problems: Problems Problem Status Onset Perforated viscus Acute
[2018-11-19] MEDS: D5W NS W/ 20 KCl/L 1,000 ML IV SCH ×2 (08:14→18:55)
[2018-11-19] MEDS: METOPROLOL TARTRATE 25 MG TAB PO SCH ×2 (10:19→20:56)
[2018-11-19] MEDS: CETIRIZINE 10 MG TAB PO SCH (10:22)
[2018-11-19] MEDS: ENOXAPARIN 100 MG/ML SYR SC SCH ×2 (10:33→20:54)
[2018-11-19] MEDS: morphINE 10 MG/0.5 ML UDSYR PO PRN ×5 (10:44→21:21)
[2018-11-19] MEDS: FLUTICASONE NASAL 120 SPRAYS/16 GM MDI EACHNARE SCH (11:06)
[2018-11-19] MEDS: KETOROLAC 15 MG/1 ML SDV IVP SCH ×2 (12:51→18:40)
[2018-11-19] MEDS: ACETAMINOPHEN 500 MG TAB PO SCH ×2 (14:38→21:05)
--- NOTE | 2018-11-19 16:34 | PCMIDPN ---
Assessment/Plan: Assessment/Plan: * Esophageal perforation with peritonitis/mediastinitis status post repair and incision and drainage plus esophageal stenting x2 and VATS (11/18/2018): Patient had experience recurrent fevers ultimately undergoing VATS yesterday. Extensive fibrinous exudate noted intraoperatively. Culture is no growth to date. Continue Unasyn pending additional culture data with adjustment accordingly if necessary. * Leukocytosis: Continue to follow post VATS. * Fever: Continue to monitor post VATS as empyema most likely etiology. Other consideration if persists post VATS would be drug fever from Unasyn. * Black hairy tongue: Anticipate will resolve over time after acute illness and antibiotic therapy completed. Discussed with patient that finding not associated with clinical illness. Time spent, greater than 25 min, of which greater than half was spent in education/counseling regarding esophageal perforation, empyema, fever, black tarry tongue, and plan of care. 11/19/18 16:32 11/19/18 16:34 Subjective: Patient status post VATS yesterday. Recent recurrence of fever noted. Complains of postoperative pain. Does not want to take clotrimazole troches his for black hairy tongue. Objective: Vital Signs Temp Pulse Resp BP Pulse Ox 36.6 C 89 16 100/62 90 L 11/19/18 15:06 11/19/18 15:06 11/19/18 15:06 11/19/18 16:27 11/19/18 15:06 Microbiology 11/18/18 14:06 Gram Stain - Final Lung - Tissue 11/18/18 16:08 Gram Stain - Final Lung - Eswab Laboratory Results 11/19/18 03:55 11/19/18 03:55 11/18/18 11/19/18 11/20/18 05:59 05:59 05:59 Intake Total 1901 1180 Output Total 1530 850 390 Balance 371 330 -390 - Physical Exam General Appearance: alert, no apparent distress EENT: other (Black hairy tongue present) Cardiac/Chest: other (Chest tube with serosanguineous output) ICD10 Worksheet Patient Problems: Problems Problem Status Onset Perforated viscus Acute
[2018-11-19] MEDS: MELATONIN 3 MG TAB PO SCH (20:56)
[2018-11-19] MEDS: HYDROcodone/CPM TUSSIONEX 5 ML UDSYR PO PRN (22:00)
[2018-11-20] MEDS: KETOROLAC 15 MG/1 ML SDV IVP SCH ×2 (00:40→06:02)
[2018-11-20] MEDS: AMPICILLIN/SULBACTAM 3 GM in NS 100 ML IV SCH ×5 (00:40→23:53)
[2018-11-20] MEDS: ACETAMINOPHEN 500 MG TAB PO SCH ×3 (06:01→22:38)
[2018-11-20] MEDS: CLOTRIMAZOLE 10 MG TROCHE PO SCH ×2 (06:21→08:34)
[2018-11-20] MEDS: morphINE 10 MG/0.5 ML UDSYR PO PRN (07:06)
[2018-11-20] MEDS: D5W NS W/ 20 KCl/L 1,000 ML IV SCH (08:06)
[2018-11-20] MEDS: METOPROLOL TARTRATE 25 MG TAB PO SCH ×2 (08:32→22:38)
[2018-11-20] MEDS: ENOXAPARIN 100 MG/ML SYR SC SCH ×2 (08:34→22:39)
[2018-11-20] MEDS: CETIRIZINE 10 MG TAB PO SCH (08:34)
[2018-11-20] MEDS: FLUTICASONE NASAL 120 SPRAYS/16 GM MDI EACHNARE SCH (08:35)
--- NOTE | 2018-11-20 09:53 | SOAPPROG ---
SOAP Progress Note Assessment/Plan: Assessment:s/p repair of GE junction perforation POD #26- s/p left VATS decortication POD#2 s/p deployment of esophageal covered stent POD #20/11-new stent placed by Dr Myers in good position on CT/some contrast around outside of proximal portion of stent without convincing evidence of leak new onset A-fib with RVR, currently in NSR weaned off TPN/PICC line is out Plan: diet as tolerated continue Unasyn, check cultures and adjust coverage as needed check CXR today oral meds/ prn low dose Ketorolac Iliana Leon MD, FACS 10/27/18 07:11 10/28/18 10:11 10/29/18 10:55 10/30/18 10:47 10/31/18 07:14 11/01/18 08:17 11/02/18 06:47 11/03/18 07:29 11/04/18 12:38 11/04/18 14:25 11/05/18 08:13 11/05/18 08:16 11/07/18 11:34 11/08/18 09:29 11/09/18 06:58 11/10/18 15:56 11/11/18 09:01 11/12/18 06:50 11/13/18 05:53 11/14/18 08:59 11/15/18 09:55 11/15/18 10:20 11/16/18 08:45 11/17/18 09:36 11/18/18 09:50 11/19/18 06:42 11/20/18 09:52 11/20/18 09:53 Subjective: sitting up having breakfast does not want to use Mycelex troches Objective: Vital Signs Temp Pulse Resp BP Pulse Ox 37.3 C 90 10 L 100/66 97 11/20/18 07:59 11/20/18 08:32 11/20/18 07:59 11/20/18 08:32 11/20/18 07:59 Microbiology 11/18/18 14:06 Gram Stain - Final Lung - Tissue 11/18/18 16:08 Gram Stain - Final Lung - Eswab Laboratory Results 11/19/18 03:55 11/19/18 03:55 11/19/18 11/20/18 11/21/18 05:59 05:59 05:59 Intake Total 1180 2750 Output Total 850 1490 Balance 330 1260 PT 15.8 SEC (12.0-15.0) H 11/13/18 06:05 INR 1.24 (0.83-1.16) H 11/13/18 06:05 - Pending Discharge Pending Discharge Within 24 Hours: No Pending Discharge Within 48 Hours: No Physical Exam - Physical Exam General Appearance: alert, no apparent distress Respiratory: lungs clear, decreased breath sounds, other (CT output sero- sanguinous) Cardiac/Chest: regular rate, rhythm Abdomen: non-tender, soft Male Genitalia: deferred Rectal: deferred Skin: warm/dry, pallor Neuro/Psych: alert, normal mood/affect ICD10 Worksheet Patient Problems: Problems Problem Status Onset Perforated viscus Acute
[2018-11-20] MEDS: HYDROcodone/CPM TUSSIONEX 5 ML UDSYR PO PRN ×2 (10:06→22:02)
--- NOTE | 2018-11-20 11:06 | PCMIDPN ---
Assessment/Plan: Assessment: Esophageal perforation-status post operative repair. Status post stenting. Status post stent revision. Recently status post VATS. White blood cell count stable. Continue to cover with IV Unasyn. Lung fungal cultures starting to grow yeast. Will hold off on empiric treatment and see what grows. Agree with potential transition over to p.o. Augmentin at point of discharge. Plan: 1. Continue IV Unasyn. 2. Follow up on early yeast isolate seen in VATS samples. Subjective: Patient resting in his hospital room. Working with physical therapy this morning. Getting tired of being in patient in the hospital. Otherwise seems to be doing okay. No repeat fevers. Objective: Unasyn # 18 Vital Signs Temp Pulse Resp BP Pulse Ox 37.3 C 90 10 L 100/66 97 11/20/18 07:59 11/20/18 08:32 11/20/18 07:59 11/20/18 08:32 11/20/18 07:59 Microbiology 11/18/18 14:06 Gram Stain - Final Lung - Tissue 11/18/18 16:08 Gram Stain - Final Lung - Eswab Laboratory Results 11/19/18 03:55 11/19/18 03:55 11/19/18 11/20/18 11/21/18 05:59 05:59 05:59 Intake Total 1180 2750 Output Total 850 1490 Balance 330 1260 - Physical Exam General Appearance: WD/WN, alert, no apparent distress, non-toxic Respiratory: lungs clear, normal breath sounds, No respiratory distress Cardiac/Chest: regular rate, rhythm, No tachycardia Skin: normal color, warm/dry, No rash Neuro/Psych: alert, normal mood/affect, oriented x 3 ICD10 Worksheet Patient Problems: Problems Problem Status Onset Perforated viscus Acute
[2018-11-20] MEDS: KETOROLAC 30 MG/1 ML SDV IVP PRN ×2 (12:48→22:02)
--- NOTE | 2018-11-20 14:48 | ASMTCMCOM ---
CM Note CM Note Notes: 11/20/2018 Case Management Note Reviewed chart. Pt had VATS procedure over the weekend. D/C needs remain unclear. Possibly needing a home infusion company for TPN needs. Case Management d/c poc: to be determined. Case Management to follow. Date Signed: 11/20/2018 02:48 PM Electronically Signed By:Svetlana Storey RN
[2018-11-20] MEDS: ONDANSETRON 4 MG/2 ML VIAL IVP PRN (21:28)
[2018-11-20] MEDS: MELATONIN 3 MG TAB PO SCH (22:48)
[2018-11-21] MEDS ORDERED: METOPROLOL TARTRATE 25 MG TAB PO ONE (01:54)
[2018-11-21] MEDS: ONDANSETRON 4 MG/2 ML VIAL IVP PRN ×2 (03:36→19:26)
[2018-11-21] MEDS: AMPICILLIN/SULBACTAM 3 GM in NS 100 ML IV SCH ×4 (06:01→23:32)
[2018-11-21] MEDS: ACETAMINOPHEN 500 MG TAB PO SCH ×3 (06:06→22:29)
--- NOTE | 2018-11-21 07:57 | GCON ---
DATE OF CONSULTATION: 11/21/2018 REFERRING PHYSICIAN: Shun Leon MD REASON FOR CONSULTATION: Atrial fibrillation. HPI: This is a 57-year-old male with history of GERD, dysphagia, who underwent elective esophagoscop y and dilation on 10/25/2018, by Dr. Parks. He later returned to the ER with chest and abdominal pa in. CT demonstrated extensive pneumomediastinum, consistent with esophageal perforation. He underwe nt repair with a fundoplication on 10/27. This was complicated by peritonitis and mediastinitis. Wh ile in the intensive care unit, he had atrial fibrillation with RVR, was started on metoprolol and Lo venox. He had bilateral pleural effusions status post chest tube placement, 10/27/2018. He subseque ntly had esophageal stenting x2 and a VATS, 11/18/2018. Developed recurrent fevers. He is on empiri c Unasyn with culture data pending. Today, the patient complains of being very full after dinner. He went for a walk and developed cough ing that turned into retching. He felt himself pop into Afib with mild dizziness. Now, he has no sy mptoms. He has consistently loose stools. No chest pain. No shortness of breath. Review of the telemetry showing atrial fibrillation with heart rates ranging 120s to 150s, blood pres sure 126/80. REVIEW OF SYSTEMS: I completed a 10-point review of systems, negative except as noted in HPI. PAST MEDICAL HISTORY: Skin cancer, GERD, dysphagia. PAST SURGICAL HISTORY: Aside from those stated above, skin cancer removal. FAMILY HISTORY: Dad with a brain aneurysm. ALLERGIES: None. CURRENT MEDICATIONS: Tylenol, albuterol, Unasyn 3 g q.6 hours, HurriCaine spray, Tessalon Perles, Zy rtec, Lovenox 90 mg b.i.d., Flonase, Toradol, melatonin, metoprolol 12.5 mg b.i.d., Roxanol 5 mg q.2 hours p.r.n., Zofran, Afrin. PHYSICAL EXAMINATION: VITAL SIGNS: Temperature 37.1, blood pressure is 126/80, heart rate 130s, res pirations 18, 95% on 2 L. GENERAL: Lying in a chair, no acute distress. HEENT: PERRLA. Moist muc ous membranes. Black hairy tongue. CV: Irregularly-irregular. LUNGS: Decreased breath sounds, le ft base. CHEST: Chest tube in place with serosanguineous output. ABDOMEN: Mild distention. Surgi carol incision healed well. Positive bowel sounds. : No Taveras. MUSCULOSKELETAL: Moving all 4 ext remities. NEURO: 2 through 12 intact. PSYCH: Alert and oriented x3. LABS: Sodium 134, potassium 4.9, chloride 100, carbon dioxide 27, creatinine 0.8, glucose 110, calci um 7.6, total protein 5.5, albumin 2.5. Urine 11/17/2018, negative. WBC 13, hemoglobin 10, hematocr it 32, platelets 413. Lung swab showing yeast species. Blood cultures 11/17/2018, no growth to date . EKG, personally reviewed by me: Atrial fibrillation, heart rates 140s. Chest x-ray, personally reviewed by me: Left chest tube in place, esophageal stent. ASSESSMENT AND PLAN: 1. Atrial fibrillation with RVR: Currently hemodynamically stable and asymptomatic. We will increa se metoprolol to 25 mg twice daily, on Lovenox twice daily. 2. Peritonitis/mediastinitis: Status post repair and incision and drainage plus esophageal stenting x2 and video-assisted thoracoscopic surgery, 11/18/2018. He had recurrent fevers after video-assist ed thoracoscopic surgery. There was extensive fibrinous exudate intraoperatively. Culture data is p ending. He is on Unasyn. Infectious Disease is following. 3. Leukocytosis: Continues to trend up. Plan as stated above. 4. Black hairy tongue: Should improve after acute illness and antibiotic therapy is completed. 5. Normocytic anemia. Hemoglobin and hematocrit are stable. We will repeat in the morning. 6. Diet: Regular. 7. Deep venous thrombosis prophylaxis. He is on Lovenox. Thank you for this consult. Please call if any questions. We will follow along. /[id number]/MODL
--- NOTE | 2018-11-21 08:50 | SOAPPROG ---
SOAP Progress Note Assessment/Plan: Assessment:s/p repair of GE junction perforation POD #27- s/p left VATS decortication POD#3 cultures growing yeast in all specimens Micafungin started today CXR yesterday shows chest to be well drained/persistent gastric distention s/p deployment of esophageal covered stent POD #21/12-new stent placed by Dr Myers in good position on CT/some contrast around outside of proximal portion of stent without convincing evidence of leak recurrent A-fib with RVR, currently in NSR weaned off TPN/PICC line is out Plan: diet as tolerated-patient is reluctant but agrees to try eating more continue Unasyn, check cultures and adjust coverage as needed check CXR today oral meds/ prn low dose Ketorolac Iliana Leon MD, FACS 10/27/18 07:11 10/28/18 10:11 10/29/18 10:55 10/30/18 10:47 10/31/18 07:14 11/01/18 08:17 11/02/18 06:47 11/03/18 07:29 11/04/18 12:38 11/04/18 14:25 11/05/18 08:13 11/05/18 08:16 11/07/18 11:34 11/08/18 09:29 11/09/18 06:58 11/10/18 15:56 11/11/18 09:01 11/12/18 06:50 11/13/18 05:53 11/14/18 08:59 11/15/18 09:55 11/15/18 10:20 11/16/18 08:45 11/17/18 09:36 11/18/18 09:50 11/19/18 06:42 11/20/18 09:52 11/20/18 09:53 11/21/18 08:47 11/21/18 08:51 Subjective: nausea and poor po intake persist A-fib with RVR last PM-Dr. Monroe note appreciated Objective: Vital Signs Temp Pulse Resp BP Pulse Ox 37.1 C 100 18 107/72 95 11/20/18 23:39 11/21/18 03:40 11/20/18 23:39 11/21/18 06:15 11/20/18 23:39 Microbiology 11/18/18 14:06 Gram Stain - Final Lung - Tissue 11/18/18 16:08 Gram Stain - Final Lung - Eswab Laboratory Results 11/19/18 03:55 11/19/18 03:55 11/20/18 11/21/18 11/22/18 05:59 05:59 05:59 Intake Total 2750 975 Output Total 1490 545 Balance 1260 430 PT 15.8 SEC (12.0-15.0) H 11/13/18 06:05 INR 1.24 (0.83-1.16) H 11/13/18 06:05 - Pending Discharge Pending Discharge Within 24 Hours: No Pending Discharge Within 48 Hours: No Physical Exam - Physical Exam General Appearance: no apparent distress Respiratory: lungs clear, decreased breath sounds, other (CT without air leak/ serosanguinous output < 100 ml) Cardiac/Chest: regular rate, rhythm, extra beats Abdomen: non-tender, soft Back: Normal inspection Neuro/Psych: normal mood/affect, oriented x 3 ICD10 Worksheet Patient Problems: Problems Problem Status Onset Perforated viscus Acute
[2018-11-21] MEDS: METOPROLOL TARTRATE 25 MG TAB PO SCH ×3 (08:54→20:59)
[2018-11-21] MEDS: ENOXAPARIN 100 MG/ML SYR SC SCH ×2 (08:56→20:59)
[2018-11-21] MEDS: CETIRIZINE 10 MG TAB PO SCH (08:56)
[2018-11-21] MEDS: FLUTICASONE NASAL 120 SPRAYS/16 GM MDI EACHNARE SCH (08:57)
[2018-11-21] MEDS ORDERED: FLUCONAZOLE/NaCl 200 ML IV SCH (09:00)
[2018-11-21 09:22] LABS: PLATELET COUNT 421 10^3/uL (150-400)
[2018-11-21] MEDS: MICAFUNGIN NA 100 MG in NS 100 ML IV SCH (09:28)
--- NOTE | 2018-11-21 11:01 | CPEKG ---
Test Reason : OPEN Blood Pressure : / mmHG Vent. Rate : 146 BPM Atrial Rate : 181 BPM P-R Int : 144 ms QRS Dur : 070 ms QT Int : 298 ms P-R-T Axes : 000 009 032 degrees QTc Int : 465 ms Atrial fibrillation Confirmed by Tony Stafford ([id number]) on 11/21/2018 11:01:33 AM Referred By: Confirmed By:Tony Stafford
--- NOTE | 2018-11-21 15:36 | ASMTCMCOM ---
CM Note CM Note Notes: 11/21/2018 Case Management Note Discussed pt during rounds this morning. Pt had afib last night. TPN has been discontinued. Discharge needs and date are unclear. Case Management d/c poc: to e determined. Case Management to follow. Date Signed: 11/21/2018 03:35 PM Electronically Signed By:Svetlana Storey RN
--- NOTE | 2018-11-21 16:56 | PCMIDPN ---
Assessment/Plan: Assessment/Plan: * Esophageal perforation with peritonitis/mediastinitis status post repair and incision and drainage plus esophageal stenting x2 and VATS (11/18/2018): All cultures from VATS procedure now growing yeast. Based on operative appearance and multiple positive cultures, will begin micafungin given he is at risk for non albicans yeast and corrected QT is 465 milliseconds. Continue Unasyn for antibacterial activity. Will ultimately need new PICC line. Will review with Dr. Leon regarding potential need for TPN moving forward as this would necessitate double-lumen PICC line. * Leukocytosis: Slight decreased post VATS. * Fever: No further fever post VATS. Continue to monitor. * Black hairy tongue: Anticipate will resolve over time after acute illness and antibiotic therapy completed. 11/21/18 16:53 11/21/18 16:54 11/21/18 16:55 Subjective: Patient feels overall better. Remains with poor appetite. Objective: Vital Signs Temp Pulse Resp BP Pulse Ox 36.8 C 87 20 105/67 97 11/21/18 16:25 11/21/18 16:25 11/21/18 16:25 11/21/18 16:25 11/21/18 16:25 Microbiology 11/18/18 14:06 Gram Stain - Final Lung - Tissue 11/18/18 16:08 Gram Stain - Final Lung - Eswab Laboratory Results 11/21/18 08:57 11/19/18 03:55 11/20/18 11/21/18 11/22/18 05:59 05:59 05:59 Intake Total 2750 975 208 Output Total 1490 545 150 Balance 1260 430 58 Unasyn # 19 All cultures from VATS growing yeast Laboratory Tests 11/19/18 03:55 Total Bilirubin 0.5 AST 20 ALT 25 Alkaline Phosphatase 96 - Physical Exam General Appearance: alert, no apparent distress EENT: other (Black hairy tongue present), No scleral icterus, No conjunctival petechiae Respiratory: other (Decreased breath sounds left base but improved air movement overall; chest tube with serosanguineous output) Cardiac/Chest: regular rate, rhythm Extremities: No inflammation Abdomen: non-tender, No distended Skin: No rash ICD10 Worksheet Patient Problems: Problems Problem Status Onset Perforated viscus Acute
--- NOTE | 2018-11-21 16:57 | HOSPPROG ---
Hospitalist Progress Note Assessment/Plan: Atrial fib with RVR- patient has had excellent rate control and appears currently in normal sinus rhythm. Lopressor was increased to 25 mg twice a day. He is on Lovenox twice daily. Pressures low today so decreased back to Lopressor 12.5 twice daily. Has had no recurrence since. Would continue to monitor and if develops RVR again give small as needed pushes of Lopressor IV were diltiazem Peritonitis/mediastinitis- status post repair and I&D with esophageal stenting on November 18. He remains on Unasyn, id following. Leukocytosis- likely secondary to infectious cause. Continue antibiotics. Id consulted Normocytic anemia- hemoglobin and hematocrit remained stable. No evidence of active bleed. Monitor H&H daily DVT prophylaxis- treatment dose Lovenox 90 mg twice daily Fluids- oral Lytes- within normal limits Nutrition- regular Cor - full Disposition- inpatient for peritonitis mediastinitis. Subjective: Patient without complaints today. Objective: Vital Signs Temp Pulse Resp BP Pulse Ox 36.8 C 87 20 105/67 97 11/21/18 16:25 11/21/18 16:25 11/21/18 16:25 11/21/18 16:25 11/21/18 16:25 Microbiology 11/18/18 14:06 Gram Stain - Final Lung - Tissue 11/18/18 16:08 Gram Stain - Final Lung - Eswab Laboratory Results 11/21/18 08:57 11/19/18 03:55 11/20/18 11/21/18 11/22/18 05:59 05:59 05:59 Intake Total 2750 975 208 Output Total 1490 545 150 Balance 1260 430 58 PT 15.8 SEC (12.0-15.0) H 11/13/18 06:05 INR 1.24 (0.83-1.16) H 11/13/18 06:05 - Physical Exam Constitutional: no apparent distress, appears nourished, not in pain Eyes: PERRL, anicteric sclera, EOMI Ears, Nose, Mouth, Throat: moist mucous membranes, hearing normal, ears appear normal, no oral mucosal ulcers Cardiovascular: regular rate and rhythym, no murmur, rub, or gallop, edema Respiratory: no respiratory distress, reduced air movement, dullness to percussion Gastrointestinal: normoactive bowel sounds, soft, non-tender abdomen, no palpable masses Genitourinary: no bladder fullness, no bladder tenderness, no renal bruits Skin: no rashes or abrasions, no fluctuance, no induration Musculoskeletal: full muscle strength, no muscle tenderness, normal joint ROM Neurologic: AAOx3, sensation intact bilaterally Psychiatric: interacting appropriately, not anxious, not encephalopathic, thought process linear Lymph, Heme, Immunologic: no cervical LAD, no supraclavicular LAD ICD10 Worksheet Patient Problems: Problems Problem Status Onset Perforated viscus Acute
[2018-11-21] MEDS: PANTOPRAZOLE SODIUM 40 MG VIAL IVP SCH (18:34)
[2018-11-21] MEDS: HYDROcodone/CPM TUSSIONEX 5 ML UDSYR PO PRN (19:26)
[2018-11-21] MEDS: MELATONIN 3 MG TAB PO SCH (22:27)
[2018-11-22] MEDS: CEPACOL LOZENGE PO PRN ×2 (02:38→21:51)
[2018-11-22] MEDS: AMPICILLIN/SULBACTAM 3 GM in NS 100 ML IV SCH ×4 (06:18→23:36)
[2018-11-22] MEDS: ACETAMINOPHEN 500 MG TAB PO SCH ×3 (06:18→22:24)
[2018-11-22] MEDS: METOPROLOL TARTRATE 25 MG TAB PO SCH ×2 (08:44→21:52)
[2018-11-22] MEDS: PANTOPRAZOLE SODIUM 40 MG VIAL IVP SCH (08:44)
[2018-11-22] MEDS: MICAFUNGIN NA 100 MG in NS 100 ML IV SCH (08:44)
[2018-11-22] MEDS: ENOXAPARIN 100 MG/ML SYR SC SCH ×2 (08:44→21:52)
[2018-11-22] MEDS: CETIRIZINE 10 MG TAB PO SCH (08:44)
[2018-11-22] MEDS: FLUTICASONE NASAL 120 SPRAYS/16 GM MDI EACHNARE SCH (08:45)
[2018-11-22] MEDS: KETOROLAC 30 MG/1 ML SDV IVP PRN (09:09)
--- NOTE | 2018-11-22 11:44 | SOAPPROG ---
SOAP Progress Note Assessment/Plan: Assessment:s/p repair of GE junction perforation POD #28- s/p left VATS decortication POD#4 cultures growing yeast in all specimens Micafungin started 11/21/[address] will discuss timing of CT removal with ID s/p deployment of esophageal covered stent POD #22/13-new stent placed by Dr Myers in good position on CT/some contrast around outside of proximal portion of stent without convincing evidence of leak recurrent A-fib with RVR, currently in NSR weaned off TPN/PICC line is out Plan: diet as tolerated-Post Lorenza diet recommended per [facility] protocol continue Unasyn, check cultures and adjust coverage as needed anticoagulation currently with LMWH/will need to switch prior to discharge oral meds/ prn low dose Ketorolac Iliana Leon MD, FACS 10/27/18 07:11 10/28/18 10:11 10/29/18 10:55 10/30/18 10:47 10/31/18 07:14 11/01/18 08:17 11/02/18 06:47 11/03/18 07:29 11/04/18 12:38 11/04/18 14:25 11/05/18 08:13 11/05/18 08:16 11/07/18 11:34 11/08/18 09:29 11/09/18 06:58 11/10/18 15:56 11/11/18 09:01 11/12/18 06:50 11/13/18 05:53 11/14/18 08:59 11/15/18 09:55 11/15/18 10:20 11/16/18 08:45 11/17/18 09:36 11/18/18 09:50 11/19/18 06:42 11/20/18 09:52 11/20/18 09:53 11/21/18 08:47 11/21/18 08:51 11/22/18 11:41 Subjective: coughing l lot at night/some diarrhea/oral intake remains borderline, but with less nausea Objective: Vital Signs Temp Pulse Resp BP Pulse Ox 36.8 C 76 20 119/81 H 98 11/22/18 10:57 11/22/18 10:57 11/22/18 10:57 11/22/18 10:57 11/22/18 10:57 Microbiology 11/18/18 14:06 Gram Stain - Final Lung - Tissue 11/18/18 16:08 Gram Stain - Final Lung - Eswab Laboratory Results 11/21/18 08:57 11/19/18 03:55 11/21/18 11/22/18 11/23/18 05:59 05:59 05:59 Intake Total 975 1121 Output Total 545 490 Balance 430 631 PT 15.8 SEC (12.0-15.0) H 11/13/18 06:05 INR 1.24 (0.83-1.16) H 11/13/18 06:05 Physical Exam - Physical Exam General Appearance: alert, no apparent distress Respiratory: other (CT output < 50 ml, serosanguinous/dressing changed/OnQ caths removed) Cardiac/Chest: regular rate, rhythm Abdomen: non-tender, soft ICD10 Worksheet Patient Problems: Problems Problem Status Onset Perforated viscus Acute
[2018-11-22] MEDS: ALBUTEROL 3 ML DEYVIAL IH PRN ×2 (13:15→22:05)
--- NOTE | 2018-11-22 14:19 | ASMTCMCOM ---
CM Note CM Note Notes: Pts case discussed in tx rounds. Pt will most likely require ivabx at time of d/c. Pt still has his chest tube in from VATS procedure. Referral made to [facility] and [facility]. CM to follow. Plan: TBD Date Signed: 11/22/2018 02:19 PM Electronically Signed By:MILES Platt
--- NOTE | 2018-11-22 15:31 | HOSPPROG ---
Hospitalist Progress Note Assessment/Plan: Atrial fib with RVR- patient has had excellent rate control and appears currently in normal sinus rhythm. -cont Lopressor -cont Lovenox, will need change to oral meds Peritonitis/mediastinitis- status post repair and I&D with esophageal stenting on November 18. He remains on Unasyn, id following. Leukocytosis- likely secondary to infectious cause. Continue antibiotics. Id consulted Normocytic anemia- hemoglobin and hematocrit remained stable. No evidence of active bleed. Monitor H&H daily DVT prophylaxis- treatment dose Lovenox 90 mg twice daily Fluids- oral Lytes- within normal limits Nutrition- regular Cor - full Disposition- per primary Subjective: no cp or sob. some cough. no afib Objective: Vital Signs Temp Pulse Resp BP Pulse Ox 36.8 C 76 20 119/81 H 98 11/22/18 10:57 11/22/18 10:57 11/22/18 10:57 11/22/18 10:57 11/22/18 10:57 Microbiology 11/18/18 14:06 Gram Stain - Final Lung - Tissue 11/18/18 16:08 Gram Stain - Final Lung - Eswab 11/17/18 11:10 Blood Culture - Final Blood 11/17/18 11:18 Blood Culture - Final Blood Laboratory Results 11/21/18 08:57 11/19/18 03:55 11/21/18 11/22/18 11/23/18 05:59 05:59 05:59 Intake Total 975 1121 Output Total 545 490 Balance 430 631 PT 15.8 SEC (12.0-15.0) H 11/13/18 06:05 INR 1.24 (0.83-1.16) H 11/13/18 06:05 - Physical Exam Constitutional: not in pain Eyes: PERRL, EOMI Ears, Nose, Mouth, Throat: moist mucous membranes, hearing normal Cardiovascular: regular rate and rhythym, No edema Respiratory: no respiratory distress, No rhonchi Gastrointestinal: normoactive bowel sounds, soft, non-tender abdomen Skin: warm Neurologic: AAOx3 Psychiatric: interacting appropriately, not anxious, not encephalopathic ICD10 Worksheet Patient Problems: Problems Problem Status Onset Perforated viscus Acute
--- NOTE | 2018-11-22 17:06 | PCMIDPN ---
Assessment/Plan: Assessment/Plan: * Esophageal perforation with peritonitis/mediastinitis status post repair and incision and drainage plus esophageal stenting x2 and VATS (11/18/2018): All cultures from VATS procedure now growing Patricia species which is not further identified. Continue micafungin pending species identification. If azole susceptible species, will review with cardiology regarding potential use of fluconazole in the setting of QTC 465 as this could be given orally based on excellent oral bioavailability. No other QT prolonging agents being utilized other than Zofran currently. Reviewed with Dr. Leon regarding chest tube with plans to allow drainage to decrease further prior to removal given complex course and growth of yeast. * Leukocytosis: Continued slow decreased post VATS. * Fever: No further fever post VATS. Continue to monitor. * Black hairy tongue: Unchanged. Anticipate will resolve over time after acute illness and antibiotic therapy completed. 11/22/18 17:02 Subjective: Patient complains of cough. Still with decreased appetite. Objective: Vital Signs Temp Pulse Resp BP Pulse Ox 36.8 C 88 20 106/67 92 11/22/18 16:00 11/22/18 16:00 11/22/18 16:00 11/22/18 16:00 11/22/18 16:00 Microbiology 11/18/18 14:06 Gram Stain - Final Lung - Tissue 11/18/18 16:08 Gram Stain - Final Lung - Eswab 11/17/18 11:10 Blood Culture - Final Blood 11/17/18 11:18 Blood Culture - Final Blood Laboratory Results 11/21/18 08:57 11/19/18 03:55 11/21/18 11/22/18 11/23/18 05:59 05:59 05:59 Intake Total 975 1121 Output Total 545 490 Balance 430 631 Unasyn # 20 Micafungin # 2 All operative cultures from VATS with growth of Patricia species Laboratory Tests 11/22/18 03:35 Total Bilirubin 0.3 AST 22 ALT 23 Alkaline Phosphatase 109 - Physical Exam General Appearance: alert, no apparent distress EENT: thrush (No change in black hairy tongue), No scleral icterus Respiratory: other (Decreased breath sounds left base but overall improved air movement) Cardiac/Chest: regular rate, rhythm Abdomen: non-tender, No distended ICD10 Worksheet Patient Problems: Problems Problem Status Onset Perforated viscus Acute
[2018-11-22] MEDS: ONDANSETRON 4 MG/2 ML VIAL IVP PRN (19:57)
[2018-11-22] MEDS: MELATONIN 3 MG TAB PO SCH (21:52)
[2018-11-23] MEDS: HYDROcodone/CPM TUSSIONEX 5 ML UDSYR PO PRN (01:22)
[2018-11-23] MEDS: ONDANSETRON 4 MG/2 ML VIAL IVP PRN ×4 (02:53→18:33)
[2018-11-23 04:32] LABS: PLATELET COUNT 442 10^3/uL (150-400)
[2018-11-23] MEDS: ACETAMINOPHEN 500 MG TAB PO SCH (06:21)
[2018-11-23] MEDS: AMPICILLIN/SULBACTAM 3 GM in NS 100 ML IV SCH ×4 (07:00→23:25)
[2018-11-23] MEDS ORDERED: ALTEPLASE 2 MG VIAL IVP PRN (07:44)
--- NOTE | 2018-11-23 08:07 | SOAPPROG ---
SOAP Progress Note Assessment/Plan: Assessment:s/p repair of GE junction perforation POD #29- s/p left VATS decortication POD#5cultures growing Patricia lusitaniae Micafungin started 1 I discussed timing of CT removal with Dr. Lion and he agrees that we should leave the chest tubes in place for now due to the growth of yeast s/p deployment of esophageal covered stent POD #23/14-new stent placed by Dr Myers in good position on CT/some contrast around outside of proximal portion of stent without convincing evidence of leak recurrent A-fib with RVR, currently in NSR Plan: diet as tolerated-Post Lorenza diet recommended per [facility] protocol/ discussed again in some detail continue Unasyn+Micafungin, replace PICC to allow for outpatient infusion anticoagulation currently with LMWH/will need to switch prior to discharge oral meds/ prn low dose Ketorolac trial of Gerald Leon MD, FACS 10/27/18 07:11 10/28/18 10:11 10/29/18 10:55 10/30/18 10:47 10/31/18 07:14 11/01/18 08:17 11/02/18 06:47 11/03/18 07:29 11/04/18 12:38 11/04/18 14:25 11/05/18 08:13 11/05/18 08:16 11/07/18 11:34 11/08/18 09:29 11/09/18 06:58 11/10/18 15:56 11/11/18 09:01 11/12/18 06:50 11/13/18 05:53 11/14/18 08:59 11/15/18 09:55 11/15/18 10:20 11/16/18 08:45 11/17/18 09:36 11/18/18 09:50 11/19/18 06:42 11/20/18 09:52 11/20/18 09:53 11/21/18 08:47 11/21/18 08:51 11/22/18 11:41 11/23/18 08:03 Subjective: coughing and nausea persist, borderline oral intake Objective: Vital Signs Temp Pulse Resp BP Pulse Ox 37.6 C 100 20 140/79 H 95 11/23/18 04:38 11/23/18 04:38 11/23/18 04:38 11/23/18 04:38 11/23/18 04:38 Microbiology 11/18/18 14:06 Gram Stain - Final Lung - Tissue 11/18/18 16:08 Gram Stain - Final Lung - Eswab 11/17/18 11:10 Blood Culture - Final Blood 11/17/18 11:18 Blood Culture - Final Blood Laboratory Results 11/23/18 04:00 11/19/18 03:55 11/22/18 11/23/18 11/24/18 05:59 05:59 05:59 Intake Total 1121 1445 Output Total 490 360 10 Balance 631 1085 -10 PT 15.8 SEC (12.0-15.0) H 11/13/18 06:05 INR 1.24 (0.83-1.16) H 11/13/18 06:05 Physical Exam - Physical Exam General Appearance: alert, no apparent distress Respiratory: lungs clear, decreased breath sounds, other (CT output serous/ minimal) Cardiac/Chest: regular rate, rhythm Abdomen: non-tender, soft Male Genitalia: deferred Rectal: deferred Skin: warm/dry Neuro/Psych: normal mood/affect, oriented x 3 ICD10 Worksheet Patient Problems: Problems Problem Status Onset Perforated viscus Acute
[2018-11-23] MEDS: KETOROLAC 30 MG/1 ML SDV IVP PRN ×3 (08:20→23:32)
[2018-11-23] MEDS: ENOXAPARIN 100 MG/ML SYR SC SCH ×2 (09:14→21:45)
[2018-11-23] MEDS: MONTELUKAST SODIUM 10 MG TAB PO SCH (09:15)
[2018-11-23] MEDS: METOPROLOL TARTRATE 25 MG TAB PO SCH ×2 (09:15→21:44)
[2018-11-23] MEDS: MICAFUNGIN NA 100 MG in NS 100 ML IV SCH (09:15)
[2018-11-23] MEDS: PANTOPRAZOLE SODIUM 40 MG VIAL IVP SCH (09:15)
[2018-11-23] MEDS: CETIRIZINE 10 MG TAB PO SCH (09:16)
[2018-11-23] MEDS: FLUTICASONE NASAL 120 SPRAYS/16 GM MDI EACHNARE SCH (09:20)
--- NOTE | 2018-11-23 14:08 | ASMTCMCOM ---
CM Note CM Note Notes: Pts case discussed in tx rounds. Libia from [facility] stopped by and visited w/ pt. TPN has stopped. Pts chest tube is still in. Libia will follow up early next week. Updates sent to [facility]. CM to follow. Plan: [facility]/ MACKENZIE OBRIEN Date Signed: 11/23/2018 02:07 PM Electronically Signed By:MILES Platt
[2018-11-23] MEDS: ACETAMINOPHEN 650 MG/20.3 ML UDCUP PO SCH ×2 (14:29→21:44)
--- NOTE | 2018-11-23 15:30 | HOSPPROG ---
Hospitalist Progress Note Assessment/Plan: Atrial fib with RVR- patient has had excellent rate control and appears currently in normal sinus rhythm. -cont Lopressor -cont Lovenox, will need change to oral meds eventually. He will likely d/c mid next week per CM's discussion Peritonitis/mediastinitis- status post repair and I&D with esophageal stenting on November 18. He remains on Unasyn, id following. Leukocytosis- likely secondary to infectious cause. Continue antibiotics. Id consulted Normocytic anemia- hemoglobin and hematocrit remained stable. No evidence of active bleed. Monitor H&H daily DVT prophylaxis- treatment dose Lovenox 90 mg twice daily Fluids- oral Lytes- within normal limits Nutrition- regular Cor - full Disposition- per primary Plan: -Abx/antifungal -cont CT in -Rate control -etiology of cough is unclear. trial of Singulare Subjective: no cp or sob. no n/v Objective: Vital Signs Temp Pulse Resp BP Pulse Ox 37.1 C 89 20 120/74 93 11/23/18 11:52 11/23/18 11:52 11/23/18 11:52 11/23/18 11:52 11/23/18 11:52 Microbiology 11/18/18 14:06 Gram Stain - Final Lung - Tissue 11/18/18 16:08 Gram Stain - Final Lung - Eswab 11/17/18 11:10 Blood Culture - Final Blood 11/17/18 11:18 Blood Culture - Final Blood Laboratory Results 11/23/18 04:00 11/19/18 03:55 11/22/18 11/23/18 11/24/18 05:59 05:59 05:59 Intake Total 1121 1445 550 Output Total 490 360 610 Balance 631 1085 -60 PT 15.8 SEC (12.0-15.0) H 11/13/18 06:05 INR 1.24 (0.83-1.16) H 11/13/18 06:05 - Physical Exam Constitutional: not in pain Eyes: PERRL, EOMI Ears, Nose, Mouth, Throat: moist mucous membranes, hearing normal Cardiovascular: regular rate and rhythym, No edema Respiratory: no respiratory distress, no rales or rhonchi, clear to auscultation Gastrointestinal: normoactive bowel sounds Skin: warm Neurologic: AAOx3 Psychiatric: interacting appropriately, not anxious, not encephalopathic Lymph, Heme, Immunologic: No petechiae ICD10 Worksheet Patient Problems: Problems Problem Status Onset Perforated viscus Acute
--- NOTE | 2018-11-23 16:42 | PCMIDPN ---
Assessment/Plan: Assessment/Plan: * Esophageal perforation with peritonitis/mediastinitis status post repair and incision and drainage plus esophageal stenting x2 and VATS (11/18/2018): All cultures from VATS procedure now growing Patricia lusitaniae. Will repeat EKG today to reassess QT interval with goal of transitioning micafungin to fluconazole which could be administered orally given its excellent oral bioavailability. Patient currently with ongoing nausea precluding change to oral therapy currently. If EKG with stable QT interval, anticipate beginning fluconazole tomorrow at 400 mg per day. Continue Unasyn in interim. * Leukocytosis: Continued slow decreased post VATS. * Fever: Patient with recurrent low-grade temperature over last 24 hr. Will repeat chest x-ray today to ensure no recurrent accumulation of pleural fluid. If fever persists, patient will need repeat CT scan to reassess pleural space and ensure no evidence of esophageal leak. * Black hairy tongue: Unchanged. Anticipate will resolve over time after acute illness and antibiotic therapy completed. 11/23/18 16:38 Subjective: Patient complains of persistent cough. Appetite remains poor. Nausea overnight limiting oral intake. Objective: Vital Signs Temp Pulse Resp BP Pulse Ox 36.7 C 76 18 121/73 H 93 11/23/18 16:00 11/23/18 16:00 11/23/18 16:00 11/23/18 16:00 11/23/18 16:00 Microbiology 11/18/18 14:06 Gram Stain - Final Lung - Tissue 11/18/18 16:08 Gram Stain - Final Lung - Eswab 11/17/18 11:10 Blood Culture - Final Blood 11/17/18 11:18 Blood Culture - Final Blood Laboratory Results 11/23/18 04:00 11/19/18 03:55 11/22/18 11/23/18 11/24/18 05:59 05:59 05:59 Intake Total 1121 1445 550 Output Total 490 360 610 Balance 631 1085 -60 Unasyn # 21 Micafungin # 3 Pleural/lung tissue cultures all with growth of Patricia lustianiae - Physical Exam General Appearance: alert, no apparent distress, non-toxic EENT: other (Black hairy tongue present), No scleral icterus Respiratory: other (Decreased breath sounds left base but air movement improved) Cardiac/Chest: regular rate, rhythm Extremities: No inflammation Abdomen: non-tender, No distended Skin: No rash - Line/s RUE PICC Lines: No drainage, No erythema ICD10 Worksheet Patient Problems: Problems Problem Status Onset Perforated viscus Acute
[2018-11-23] MEDS: BENZONATATE 100 MG CAP PO PRN (21:44)
[2018-11-23] MEDS: MELATONIN 3 MG TAB PO SCH (21:46)
--- NOTE | 2018-11-23 23:45 | CPEKG ---
Test Reason : OPEN Blood Pressure : / mmHG Vent. Rate : 077 BPM Atrial Rate : 077 BPM P-R Int : 152 ms QRS Dur : 077 ms QT Int : 410 ms P-R-T Axes : -08 -04 013 degrees QTc Int : 465 ms Sinus rhythm non-specific lateral st-t changes Confirmed by Tony Stafford ([id number]) on 11/23/2018 11:45:06 PM Referred By: Confirmed By:Tony Stafford
[2018-11-24] MEDS: BENZONATATE 100 MG CAP PO PRN (02:47)
[2018-11-24] MEDS: PROMETHAZINE HCL 25 MG/ML INJ IVP PRN ×2 (03:45→13:29)
[2018-11-24] MEDS: AMPICILLIN/SULBACTAM 3 GM in NS 100 ML IV SCH ×4 (05:59→23:52)
[2018-11-24] MEDS: ACETAMINOPHEN 650 MG/20.3 ML UDCUP PO SCH ×3 (06:43→21:39)
[2018-11-24] MEDS: FLUTICASONE NASAL 120 SPRAYS/16 GM MDI EACHNARE SCH (10:13)
[2018-11-24] MEDS: MICAFUNGIN NA 100 MG in NS 100 ML IV SCH (10:13)
[2018-11-24] MEDS: CETIRIZINE 10 MG TAB PO SCH (10:13)
[2018-11-24] MEDS: METOPROLOL TARTRATE 25 MG TAB PO SCH ×2 (10:13→21:39)
[2018-11-24] MEDS: MONTELUKAST SODIUM 10 MG TAB PO SCH (10:13)
[2018-11-24] MEDS: PANTOPRAZOLE SODIUM 40 MG VIAL IVP SCH (10:13)
[2018-11-24] MEDS: ENOXAPARIN 100 MG/ML SYR SC SCH ×2 (10:14→21:43)
--- NOTE | 2018-11-24 10:19 | PCMIDPN ---
Assessment/Plan: 1. Esophageal perforation with peritonitis and mediastinitis status post exploratory laparotomy with repair/esophageal stenting x2 and VATS: Chest tube remains in place in the setting of fungal predominant empyema. Have asked microbiology lab to send isolate for susceptibility testing. Will continue intravenous Micafungin for now, with plans on transition to oral fluconazole (at some point) with a close eye on his QT interval moving forward. Remains on Unasyn as well. 2. Cough: Etiology likely multifactorial. For now, he will utilize Tussionex more often, which was helping although it made him nauseated. Will try to premedicate him with Zofran 1st. Over 25 min spent with this patient today. Delete Subjective: Looks bedraggled; tells me that he did not sleep last night secondary to persistent cough. Tells me that the night before last was even worse. Is now on Singulair, and a concoction of things to suppress it. Is not really using Tussionex, which he tells me helped fair amount before but made him nauseated. Spent time talking to him about his cough today, and what he can do to help it. Patient states that walking actually helps relieve the cough. It is a dry cough. He denies diarrhea. He is profoundly tired. Objective: Unasyn 3 g IV q.6 hours day 22 Micafungin 100 mg IV daily day for T-max 37.7 degrees QTC 0.465 Vital Signs Temp Pulse Resp BP Pulse Ox 37.7 C 100 20 141/86 H 90 L 11/24/18 07:18 11/24/18 07:18 11/24/18 07:18 11/24/18 07:18 11/24/18 07:18 Microbiology 11/18/18 14:06 Gram Stain - Final Lung - Tissue 11/18/18 16:08 Gram Stain - Final Lung - Eswab Laboratory Results 11/23/18 04:00 11/19/18 03:55 11/23/18 11/24/18 11/25/18 05:59 05:59 05:59 Intake Total 1445 1770 125 Output Total 360 640 450 Balance 1085 1130 -325 Empyema cultures with Patricia lusitaniae - Physical Exam General Appearance: thin, other (Pay ill, looks tired) EENT: other (Black hairy tongue) Respiratory: other (Diminished breath sounds at lung bases, and otherwise for moving good air upper lung clarke with no wheeze. Chest tube in place on the left.) Cardiac/Chest: regular rate, rhythm, No systolic murmur Extremities: other (PICC line right upper extremity looks fine) Abdomen: non-tender, soft Skin: No rash ICD10 Worksheet Patient Problems: Problems Problem Status Onset Perforated viscus Acute
[2018-11-24] MEDS: ONDANSETRON 4 MG/2 ML VIAL IVP PRN ×2 (10:27→18:17)
[2018-11-24] MEDS: HYDROcodone/CPM TUSSIONEX 5 ML UDSYR PO PRN ×2 (11:44→21:44)
--- NOTE | 2018-11-24 13:04 | SOAPPROG ---
SOAP Progress Note Assessment/Plan: Assessment:s/p repair of GE junction perforation POD #30- s/p left VATS decortication POD#5cultures growing Patricia lusitaniae Micafungin started 11/21/18 /specimen sent to [place] for sensitivity testing I discussed timing of CT removal with Dr. Lion and he agrees that we should leave the chest tubes in place for now due to the growth of yeast s/p deployment of esophageal covered stent POD #24/15-new stent placed by Dr Myers in good position on CT/some contrast around outside of proximal portion of stent without convincing evidence of leak recurrent A-fib with RVR, currently in NSR Plan: diet as tolerated-Post Lorenza diet recommended per [facility] protocol/ discussed again in some detail continue Unasyn+Micafungin, replace PICC to allow for outpatient infusion anticoagulation currently with LMWH/will need to switch prior to discharge oral meds/ prn low dose Ketorolac continue Gerald Leon MD, FACS 10/27/18 07:11 10/28/18 10:11 10/29/18 10:55 10/30/18 10:47 10/31/18 07:14 11/01/18 08:17 11/02/18 06:47 11/03/18 07:29 11/04/18 12:38 11/04/18 14:25 11/05/18 08:13 11/05/18 08:16 11/07/18 11:34 11/08/18 09:29 11/09/18 06:58 11/10/18 15:56 11/11/18 09:01 11/12/18 06:50 11/13/18 05:53 11/14/18 08:59 11/15/18 09:55 11/15/18 10:20 11/16/18 08:45 11/17/18 09:36 11/18/18 09:50 11/19/18 06:42 11/20/18 09:52 11/20/18 09:53 11/21/18 08:47 11/21/18 08:51 11/22/18 11:41 11/23/18 08:03 11/24/18 13:01 Subjective: sitting up/less coughing yesterday tolerated eating Sinhala toast Objective: Vital Signs Temp Pulse Resp BP Pulse Ox 37.6 C 98 20 134/87 H 93 11/24/18 10:53 11/24/18 10:53 11/24/18 10:53 11/24/18 10:53 11/24/18 10:53 Microbiology 11/18/18 14:06 Gram Stain - Final Lung - Tissue 11/18/18 16:08 Gram Stain - Final Lung - Eswab Laboratory Results 11/23/18 04:00 11/19/18 03:55 11/23/18 11/24/18 11/25/18 05:59 05:59 05:59 Intake Total 1445 1770 125 Output Total 360 640 450 Balance 1085 1130 -325 PT 15.8 SEC (12.0-15.0) H 11/13/18 06:05 INR 1.24 (0.83-1.16) H 11/13/18 06:05 - Pending Discharge Pending Discharge Within 24 Hours: No Pending Discharge Within 48 Hours: No Physical Exam - Physical Exam General Appearance: no apparent distress Respiratory: pain on movement, other (CT output aprox 20-30 ml) Cardiac/Chest: regular rate, rhythm ICD10 Worksheet Patient Problems: Problems Problem Status Onset Perforated viscus Acute
--- NOTE | 2018-11-24 13:19 | HOSPPROG ---
Hospitalist Progress Note Assessment/Plan: 58 yo male with peritonitis/mediastinitis with subsequent repaired. We are consulted for Afib. Atrial fib with RVR- patient has had excellent rate control and appears currently in normal sinus rhythm. -cont Lopressor -cont Lovenox, will need change to oral meds eventually. He will likely d/c mid next week per CM's discussion Peritonitis/mediastinitis- status post repair and I&D with esophageal stenting on November 18. -cont Micafungin -Cont Unasyn -ID following -Cx c/w Patricia Lusitaniae -Chest tubes per surgery/ID Leukocytosis- Normocytic anemia- hemoglobin and hematocrit remained stable. No evidence of active bleed. Monitor H&H daily Cough: multifactorial. cont Tussionex, Tessalon Pearles, Zyrtec, Cepacol DVT prophylaxis- treatment dose Lovenox 90 mg twice daily Fluids- oral Lytes- within normal limits Nutrition- regular Cor - full Disposition- per primary Subjective: no cp or sob. still with cough Objective: Vital Signs Temp Pulse Resp BP Pulse Ox 37.6 C 98 20 134/87 H 93 11/24/18 10:53 11/24/18 10:53 11/24/18 10:53 11/24/18 10:53 11/24/18 10:53 Microbiology 11/18/18 14:06 Gram Stain - Final Lung - Tissue 11/18/18 16:08 Gram Stain - Final Lung - Eswab Laboratory Results 11/23/18 04:00 11/19/18 03:55 11/23/18 11/24/18 11/25/18 05:59 05:59 05:59 Intake Total 1445 1770 125 Output Total 360 640 450 Balance 1085 1130 -325 PT 15.8 SEC (12.0-15.0) H 11/13/18 06:05 INR 1.24 (0.83-1.16) H 11/13/18 06:05 - Physical Exam Constitutional: no apparent distress Eyes: PERRL, EOMI Ears, Nose, Mouth, Throat: moist mucous membranes, hearing normal Cardiovascular: regular rate and rhythym, No edema Respiratory: no respiratory distress, no rales or rhonchi, clear to auscultation Gastrointestinal: normoactive bowel sounds, soft, non-tender abdomen Skin: warm Neurologic: AAOx3 Psychiatric: interacting appropriately, not anxious, not encephalopathic Lymph, Heme, Immunologic: No petechiae ICD10 Worksheet Patient Problems: Problems Problem Status Onset Perforated viscus Acute
[2018-11-24 15:17] LABS: PLATELET COUNT 470 10^3/uL (150-400)
[2018-11-24] MEDS: KETOROLAC 30 MG/1 ML SDV IVP PRN (18:17)
[2018-11-24] MEDS: MELATONIN 3 MG TAB PO SCH (21:44)
[2018-11-25] MEDS: CEPACOL LOZENGE PO PRN ×2 (03:48→16:56)
[2018-11-25] MEDS: AMPICILLIN/SULBACTAM 3 GM in NS 100 ML IV SCH ×4 (05:50→23:17)
[2018-11-25 06:04] LABS: PLATELET COUNT 458 10^3/uL (150-400)
[2018-11-25] MEDS: ONDANSETRON 4 MG/2 ML VIAL IVP PRN (09:34)
[2018-11-25] MEDS: MICAFUNGIN NA 100 MG in NS 100 ML IV SCH (09:37)
[2018-11-25] MEDS: PANTOPRAZOLE SODIUM 40 MG VIAL IVP SCH (09:38)
[2018-11-25] MEDS: KETOROLAC 30 MG/1 ML SDV IVP PRN (09:40)
[2018-11-25] MEDS: ENOXAPARIN 100 MG/ML SYR SC SCH ×2 (09:40→22:11)
[2018-11-25] MEDS: ACETAMINOPHEN 650 MG/20.3 ML UDCUP PO SCH ×2 (10:13→16:51)
[2018-11-25] MEDS: HYDROcodone/CPM TUSSIONEX 5 ML UDSYR PO PRN ×2 (10:13→22:11)
[2018-11-25] MEDS: METOPROLOL TARTRATE 25 MG TAB PO SCH ×2 (10:13→22:12)
[2018-11-25] MEDS: FLUTICASONE NASAL 120 SPRAYS/16 GM MDI EACHNARE SCH (10:14)
[2018-11-25] MEDS: CETIRIZINE 10 MG TAB PO SCH (10:14)
[2018-11-25] MEDS: MONTELUKAST SODIUM 10 MG TAB PO SCH (10:14)
--- NOTE | 2018-11-25 12:38 | PCMIDPN ---
Assessment/Plan: # 58-year-old with complex medical course related to esophageal perforation resulting in mediastinitis and Empyema L chest s/p VATS. Pleural fluid polymicrobial w cx showing lactobacillus and Patricia Lusitaniae. Last fever 11/22 , WBC improved at 9.7. CT output fairly low but stable, last 24h = 30cc. I reviewed chest x-ray from 11/23. --tentatively plan to remove chest tube on Tuesday --still planning on discharge on p.o. Therapy with fluconazole plus Augmentin. --susceptibilities on Patricia are pending but it is likely susceptible to fluconazole --check EKG on Tuesday meds, Unasyn 3gm IV q6h #23 micafungin 100mg IV dialy #4 Microbiology 11/18/18 Lung - Tissue : Patricia Lusitaniae 11/08/18 Pleural culture: Rare lactobacillus 11/03/18 Pleural fluid cultures, negative. 10/29/18 Blood cultures x2 sets, negative. 10/25/18 Abdominal cultures with MSSA, strep mitis and strep thermophilus. Subjective: 30cc/24h output from CT Patient reports that yesterday was the best a he has had so far. Hopeful for another day like that today. Cough much less. In fact he did not cough the entire visit. He is eating much more taking in cereal, applesauce, and Amharic toast. No diarrhea Objective: Vital Signs Temp Pulse Resp BP Pulse Ox 37.1 C 79 19 123/89 H 96 11/25/18 12:00 11/25/18 12:00 11/25/18 12:00 11/25/18 12:00 11/25/18 12:00 Microbiology 11/18/18 14:06 Gram Stain - Final Lung - Tissue 11/18/18 16:08 Gram Stain - Final Lung - Eswab Laboratory Results 11/25/18 05:50 11/19/18 03:55 11/24/18 11/25/18 11/26/18 05:59 05:59 05:59 Intake Total 1770 1475 Output Total 640 730 Balance 1130 745 - Physical Exam General Appearance: alert, no apparent distress, non-toxic EENT: No scleral icterus, No thrush Respiratory: other (Lungs overall fairly clear, possible slight decreased breath sounds left base, chest tube in place with serosanguineous fluid), No accessory muscle use Neck: supple Cardiac/Chest: regular rate, rhythm Extremities: No pedal edema Skin: warm/dry, pallor, No rash Neuro/Psych: alert, normal mood/affect, oriented x 3 - Line/s RUE PICC Lines: No drainage, No erythema - Time Spent With Patient Time Spent with Patient: greater than 35 minutes (Reviewed pathophysiology of current disease and plan of care with patient and ; care coordinated with surgical team) Time Spent with Patient: Greater than 35 minutes spent on this patients care, greater than 50% of time spent counseling, educating, and coordinating care regarding the above mentioned plan. ICD10 Worksheet Patient Problems: Problems Problem Status Onset Perforated viscus Acute
--- NOTE | 2018-11-25 14:04 | HOSPPROG ---
Hospitalist Progress Note Assessment/Plan: 58 yo male with peritonitis/mediastinitis s/p repair of GE junction perforation. We are consulted for Afib. Atrial fib with RVR- rate controlled, NSR -cont Lopressor -cont Lovenox, likely change to Eliquis prior to dc GE junction perforation with peritonitis/mediastinitis - status post repair and I&D with esophageal stenting on November 18. -cont Micafungin -Cont Unasyn -ID following -Cx c/w Patricia Lusitaniae -Chest tubes per surgery/ID S/P VATS decortication Normocytic anemia - hemoglobin and hematocrit remained stable. No evidence of active bleed. -Monitor H&H daily Cough: multifactorial. cont Tussionex, Tessalon Pearles, Zyrtec, Cepacol DVT prophylaxis- treatment dose Lovenox 90 mg twice daily Fluids- oral Lytes- within normal limits Nutrition- regular Cor - full Disposition- per primary Subjective: Pt feels ok. Complains of ongoing intermittent cough and poor appetite. Denies CP or SOB. Taking po fairly well. No fevers. Objective: Vital Signs Temp Pulse Resp BP Pulse Ox 37.1 C 79 19 123/89 H 96 11/25/18 12:00 11/25/18 12:00 11/25/18 12:00 11/25/18 12:00 11/25/18 12:00 Microbiology 11/18/18 14:06 Gram Stain - Final Lung - Tissue 11/18/18 16:08 Gram Stain - Final Lung - Eswab Laboratory Results 11/25/18 05:50 11/19/18 03:55 11/24/18 11/25/18 11/26/18 05:59 05:59 05:59 Intake Total 1770 1475 Output Total 640 730 Balance 1130 745 PT 15.8 SEC (12.0-15.0) H 11/13/18 06:05 INR 1.24 (0.83-1.16) H 11/13/18 06:05 - Physical Exam Constitutional: no apparent distress Eyes: PERRL Ears, Nose, Mouth, Throat: moist mucous membranes Cardiovascular: regular rate and rhythym Respiratory: no respiratory distress, clear to auscultation Gastrointestinal: normoactive bowel sounds, soft, non-tender abdomen Skin: warm Musculoskeletal: full muscle strength Neurologic: AAOx3 Psychiatric: interacting appropriately ICD10 Worksheet Patient Problems: Problems Problem Status Onset Perforated viscus Acute
[2018-11-25] MEDS ORDERED: oxyCODONE IR 5 MG TAB PO PRN (14:09)
--- NOTE | 2018-11-25 14:26 | ASMTCMCOM ---
CM Note CM Note Notes: 11/25/2018 Case Management Note Discussed with Dr. Perez. Pt likely to d/c on oral antibiotics. Anticipating d/c Tuesday. [facility] is accepting pt, though there may not be a need if pt d/c on oral meds. Case Management d/c poc: to be determined. Case Management to follow. Date Signed: 11/25/2018 02:25 PM Electronically Signed By:Svetlana Storey RN
[2018-11-25] MEDS ORDERED: ACETAMINOPHEN 650 MG/20.3 ML UDCUP PO PRN (16:24)
[2018-11-25] MEDS ORDERED: FLUTICASONE NASAL 120 SPRAYS/16 GM MDI EACHNARE PRN (16:24)
[2018-11-25] MEDS ORDERED: ACETAMINOPHEN 325 MG TAB PO PRN (16:30)
--- NOTE | 2018-11-25 16:40 | SOAPPROG ---
SOAP Progress Note Assessment/Plan: Assessment:s/p repair of GE junction perforation POD #31- s/p left VATS decortication POD#7 cultures growing Patricia lusitaniae Micafungin started 11/21/18 /specimen sent to [place] for sensitivity testing I discussed timing of CT removal with Maryam and she agrees that we should leave the chest tubes in place for now due to the growth of yeast s/p deployment of esophageal covered stent POD #25/16-new stent placed by Dr Myers in good position on CT/some contrast around outside of proximal portion of stent without convincing evidence of leak recurrent A-fib with RVR, currently in NSR K+ 3.1 today Plan: diet as tolerated-Post Lorenza diet recommended per [facility] protocol/ discussed again in some detail continue Unasyn+Micafungin, replace PICC to allow for outpatient infusion anticoagulation currently with LMWH/will need to switch prior to discharge oral meds/ recheck creat 0.7 will add po Ibuprofen continue Singulair as it seems to have helped his cough replace K+ S MD Edward, FACS 10/27/18 07:11 10/28/18 10:11 10/29/18 10:55 10/30/18 10:47 10/31/18 07:14 11/01/18 08:17 11/02/18 06:47 11/03/18 07:29 11/04/18 12:38 11/04/18 14:25 11/05/18 08:13 11/05/18 08:16 11/07/18 11:34 11/08/18 09:29 11/09/18 06:58 11/10/18 15:56 11/11/18 09:01 11/12/18 06:50 11/13/18 05:53 11/14/18 08:59 11/15/18 09:55 11/15/18 10:20 11/16/18 08:45 11/17/18 09:36 11/18/18 09:50 11/19/18 06:42 11/20/18 09:52 11/20/18 09:53 11/21/18 08:47 11/21/18 08:51 11/22/18 11:41 11/23/18 08:03 11/24/18 13:01 11/25/18 16:37 11/25/18 17:52 Subjective: feeling better Objective: Vital Signs Temp Pulse Resp BP Pulse Ox 37.4 C 76 19 123/83 H 95 11/25/18 15:24 11/25/18 15:24 11/25/18 15:24 11/25/18 15:24 11/25/18 15:24 Microbiology 11/18/18 14:06 Gram Stain - Final Lung - Tissue 11/18/18 16:08 Gram Stain - Final Lung - Eswab Laboratory Results 11/25/18 05:50 11/19/18 03:55 11/24/18 11/25/18 11/26/18 05:59 05:59 05:59 Intake Total 1770 1475 Output Total 640 730 Balance 1130 745 PT 15.8 SEC (12.0-15.0) H 11/13/18 06:05 INR 1.24 (0.83-1.16) H 11/13/18 06:05 - Pending Discharge Pending Discharge Within 24 Hours: No Pending Discharge Within 48 Hours: No ICD10 Worksheet Patient Problems: Problems Problem Status Onset Perforated viscus Acute
[2018-11-25] MEDS: BENZONATATE 100 MG CAP PO PRN (16:56)
[2018-11-25] MEDS ORDERED: POTASSIUM CL 20 MEQ TAB PO ONE (17:41)
[2018-11-25] MEDS ORDERED: IBUPROFEN 600 MG TAB PO PRN (17:47)
[2018-11-25] MEDS: POTASSIUM Cl (KCl) 100 ML IV SCH ×4 (18:21→22:11)
[2018-11-25] MEDS: morphINE 10 MG/0.5 ML UDSYR PO PRN (20:07)
[2018-11-25] MEDS: IBUPROFEN SUSP 100 MG/5 ML UDCUP PO PRN (21:24)
[2018-11-25] MEDS: MELATONIN 3 MG TAB PO SCH (23:18)
[2018-11-26] MEDS: AMPICILLIN/SULBACTAM 3 GM in NS 100 ML IV SCH ×4 (06:17→23:42)
[2018-11-26 06:42] LABS: PLATELET COUNT 466 10^3/uL (150-400)
[2018-11-26] MEDS ORDERED: MAGNESIUM SULF 2 GM/WATER 50 ML IV ONE (07:31)
[2018-11-26] MEDS: ONDANSETRON 4 MG/2 ML VIAL IVP PRN ×2 (07:43→15:03)
--- NOTE | 2018-11-26 07:58 | SOAPPROG ---
SOAP Progress Note Assessment/Plan: Assessment:s/p repair of GE junction perforation POD #32- s/p left VATS decortication POD#7 cultures growing Patricia lusitaniae Micafungin started 1 /specimen sent to [place] for sensitivity testing I discussed timing of CT removal with Maryam and she agrees that we should leave the chest tubes in place for now due to the growth of yeast s/p deployment of esophageal covered stent POD #26/17-new stent placed by Dr Myers in good position on CXR without migration recurrent A-fib with RVR, currently in NSR K+ 3.3 today wbc 8.6! Plan: diet as tolerated-Post Lorenza [facility]/ discussed again in some detail continue Unasyn+Micafungin anticoagulation currently with LMWH/will need to switch prior to discharge oral meds/ recheck creat 0.7 will add po Ibuprofen continue Singulair as it seems to have helped his cough replace K+ S MD Edward, FACS 10/27/18 07:11 10/28/18 10:11 10/29/18 10:55 10/30/18 10:47 10/31/18 07:14 11/01/18 08:17 11/02/18 06:47 11/03/18 07:29 11/04/18 12:38 11/04/18 14:25 11/05/18 08:13 11/05/18 08:16 11/07/18 11:34 11/08/18 09:29 11/09/18 06:58 11/10/18 15:56 11/11/18 09:01 11/12/18 06:50 11/13/18 05:53 11/14/18 08:59 11/15/18 09:55 11/15/18 10:20 11/16/18 08:45 11/17/18 09:36 11/18/18 09:50 11/19/18 06:42 11/20/18 09:52 11/20/18 09:53 11/21/18 08:47 11/21/18 08:51 11/22/18 11:41 11/23/18 08:03 11/24/18 13:01 11/25/18 16:37 11/25/18 17:52 11/26/18 07:56 Subjective: dry heaves and coughing this morning tolerated soft tacos yesterday, semi-formed BM this morning Objective: Vital Signs Temp Pulse Resp BP Pulse Ox 36.8 C 95 18 138/96 H 91 L 11/26/18 07:38 11/26/18 07:38 11/26/18 07:38 11/26/18 07:38 11/26/18 07:38 Microbiology 11/18/18 14:06 Gram Stain - Final Lung - Tissue Laboratory Results 11/26/18 06:25 11/26/18 06:25 11/25/18 11/26/18 11/27/18 05:59 05:59 05:59 Intake Total 1475 900 Output Total 730 1175 200 Balance 745 -275 -200 PT 15.8 SEC (12.0-15.0) H 11/13/18 06:05 INR 1.24 (0.83-1.16) H 11/13/18 06:05 - Pending Discharge Pending Discharge Within 24 Hours: No Pending Discharge Within 48 Hours: No Physical Exam - Physical Exam General Appearance: alert, mild distress Respiratory: lungs clear, decreased breath sounds Cardiac/Chest: regular rate, rhythm Abdomen: normal bowel sounds, non-tender, soft Neuro/Psych: alert, oriented x 3, depressed affect ICD10 Worksheet Patient Problems: Problems Problem Status Onset Perforated viscus Acute
[2018-11-26] MEDS: MONTELUKAST SODIUM 10 MG TAB PO SCH (08:15)
[2018-11-26] MEDS: PANTOPRAZOLE SODIUM 40 MG VIAL IVP SCH (08:15)
[2018-11-26] MEDS: POTASSIUM Cl (KCl) 100 ML IV SCH ×4 (08:15→12:06)
[2018-11-26] MEDS: ENOXAPARIN 100 MG/ML SYR SC SCH ×2 (08:15→19:51)
[2018-11-26] MEDS: CETIRIZINE 10 MG TAB PO SCH (08:16)
[2018-11-26] MEDS: METOPROLOL TARTRATE 25 MG TAB PO SCH ×2 (08:16→19:58)
[2018-11-26] MEDS: MICAFUNGIN NA 100 MG in NS 100 ML IV SCH (09:22)
[2018-11-26] MEDS: HYDROcodone/CPM TUSSIONEX 5 ML UDSYR PO PRN ×2 (10:28→22:43)
--- NOTE | 2018-11-26 11:03 | HOSPPROG ---
Hospitalist Progress Note Assessment/Plan: 58 yo male with peritonitis/mediastinitis s/p repair of GE junction perforation with esophageal stent. We are consulted for Afib. Atrial fib with RVR- rate controlled, NSR -cont Lopressor -cont Lovenox, change to Eliquis at dc GE junction perforation with peritonitis/mediastinitis - status post repair and I&D with esophageal stenting on November 18. -cont Micafungin -Cont Unasyn -ID following -Cx c/w Patricia Lusitaniae -Chest tubes per surgery/ID S/P VATS decortication Normocytic anemia - hemoglobin and hematocrit remained stable. No evidence of active bleed. -Monitor H&H daily Cough: multifactorial. cont Tussionex, Tessalon, Zyrtec, Cepacol DVT prophylaxis- treatment dose Lovenox 90 mg twice daily Nutrition- regular Cor - full Disposition- per primary surgery team Subjective: Pt doing ok, still with dry irritating cough. Had some increased left chest wall pain last night, now resolved. No SOB, no fever.s Objective: Vital Signs Temp Pulse Resp BP Pulse Ox 36.8 C 95 18 138/96 H 91 L 11/26/18 07:38 11/26/18 07:38 11/26/18 07:38 11/26/18 07:38 11/26/18 07:38 Microbiology 11/18/18 14:06 Gram Stain - Final Lung - Tissue Laboratory Results 11/26/18 06:25 11/26/18 06:25 11/25/18 11/26/18 11/27/18 05:59 05:59 05:59 Intake Total 1475 900 260 Output Total 730 1175 600 Balance 745 -275 -340 PT 15.8 SEC (12.0-15.0) H 11/13/18 06:05 INR 1.24 (0.83-1.16) H 11/13/18 06:05 - Physical Exam Constitutional: no apparent distress Eyes: PERRL Ears, Nose, Mouth, Throat: moist mucous membranes Cardiovascular: regular rate and rhythym Respiratory: no respiratory distress, clear to auscultation Gastrointestinal: normoactive bowel sounds, soft, non-tender abdomen Skin: warm Musculoskeletal: full muscle strength Neurologic: AAOx3 Psychiatric: interacting appropriately ICD10 Worksheet Patient Problems: Problems Problem Status Onset Perforated viscus Acute
--- NOTE | 2018-11-26 13:21 | PCMIDPN ---
Assessment/Plan: At time of my exam patient was sleeping and I did not wake. No change in plans compared to assessment yesterday, I spent a long time with the patient and his Tuesday reviewing the plan as described below. Notably today white count is finally normal and no more fevers! # 58-year-old with complex medical course related to esophageal perforation resulting in mediastinitis and Empyema L chest s/p VATS. Pleural fluid polymicrobial w cx showing lactobacillus and Patricia Lusitaniae. --tentatively plan to remove chest tube on Tuesday --still planning on discharge on p.o. Therapy with fluconazole plus Augmentin. --susceptibilities on Patricia are pending but it is likely susceptible to fluconazole --check EKG on Tuesday to monitor QTc meds, Unasyn 3gm IV q6h #24 micafungin 100mg IV daily #5 Microbiology 11/18/18 Lung - Tissue : Patricia Lusitaniae 11/08/18 Pleural culture: Rare lactobacillus 11/03/18 Pleural fluid cultures, negative. 10/29/18 Blood cultures x2 sets, negative. 10/25/18 Abdominal cultures with MSSA, strep mitis and strep thermophilus. Objective: Vital Signs Temp Pulse Resp BP Pulse Ox 36.8 C 92 14 133/87 H 93 11/26/18 11:44 11/26/18 11:44 11/26/18 11:44 11/26/18 11:44 11/26/18 11:44 Microbiology 11/18/18 14:06 Gram Stain - Final Lung - Tissue Laboratory Results 11/26/18 06:25 11/26/18 06:25 11/25/18 11/26/18 11/27/18 05:59 05:59 05:59 Intake Total 1475 900 660 Output Total 730 1175 600 Balance 745 -275 60 ICD10 Worksheet Patient Problems: Problems Problem Status Onset Perforated viscus Acute
[2018-11-26] MEDS: IBUPROFEN SUSP 100 MG/5 ML UDCUP PO PRN (19:52)
[2018-11-26] MEDS: MELATONIN 3 MG TAB PO SCH (20:00)
[2018-11-27] MEDS: AMPICILLIN/SULBACTAM 3 GM in NS 100 ML IV SCH ×4 (05:11→23:11)
--- NOTE | 2018-11-27 07:56 | SOAPPROG ---
SOAP Progress Note Assessment/Plan: Assessment:s/p repair of GE junction perforation POD #33- s/p left VATS decortication POD#7 cultures growing Patricia lusitaniae Micafungin started 11/21/18 /specimen sent to [place] for sensitivity testing I discussed timing of CT removal with Maryam and she agrees that we should leave the chest tubes in place for now due to the growth of yeast s/p deployment of esophageal covered stent POD #27/18-chest tubes removed today recurrent A-fib with RVR, currently in NSR Plan: diet as tolerated-Post Lorenza diet recommended per [facility] protocol/ discussed again in some detail continue Unasyn+Micafungin anticoagulation currently with Eliquis 5 mg po BID stated today oral meds/ recheck creat 0.7 will add po Ibuprofen continue Singulair as it seems to have helped his cough replace K+ S MD Edward, FACS 10/27/18 07:11 10/28/18 10:11 18 10:55 10/30/18 10:47 10/31/18 07:14 11/01/18 08:17 11/02/18 06:47 11/03/18 07:29 11/04/18 12:38 11/04/18 14:25 11/05/18 08:13 11/05/18 08:16 11/07/18 11:34 11/08/18 09:29 11/09/18 06:58 11/10/18 15:56 11/11/18 09:01 11/12/18 06:50 11/13/18 05:53 11/14/18 08:59 11/15/18 09:55 11/15/18 10:20 11/16/18 08:45 11/17/18 09:36 11/18/18 09:50 11/19/18 06:42 11/20/18 09:52 11/20/18 09:53 11/21/18 08:47 11/21/18 08:51 11/22/18 11:41 11/23/18 08:03 11/24/18 13:01 11/25/18 16:37 11/25/18 17:52 11/26/18 07:56 11/27/18 08:09 Objective: Vital Signs Temp Pulse Resp BP Pulse Ox 36.9 C 90 16 142/93 H 90 L 11/27/18 05:55 11/27/18 05:55 11/27/18 05:55 11/27/18 05:55 11/27/18 05:55 Laboratory Results 11/26/18 06:25 11/27/18 05:15 11/26/18 11/27/18 11/28/18 05:59 05:59 05:59 Intake Total 900 1768 200 Output Total 1175 620 0 Balance -275 1148 200 PT 15.8 SEC (12.0-15.0) H 11/13/18 06:05 INR 1.24 (0.83-1.16) H 11/13/18 06:05 Physical Exam - Physical Exam General Appearance: no apparent distress Respiratory: lungs clear, decreased breath sounds Cardiac/Chest: regular rate, rhythm Abdomen: non-tender, soft Neuro/Psych: alert, normal mood/affect, oriented x 3 ICD10 Worksheet Patient Problems: Problems Problem Status Onset Perforated viscus Acute
[2018-11-27] MEDS: PANTOPRAZOLE SODIUM 40 MG TAB PO SCH (09:53)
[2018-11-27] MEDS: METOPROLOL TARTRATE 25 MG TAB PO SCH ×2 (09:53→20:28)
[2018-11-27] MEDS: MONTELUKAST SODIUM 10 MG TAB PO SCH (09:54)
[2018-11-27] MEDS: APIXABAN 5 MG TAB PO SCH ×2 (09:54→20:29)
[2018-11-27] MEDS: CETIRIZINE 10 MG TAB PO SCH (09:54)
[2018-11-27] MEDS: MICAFUNGIN NA 100 MG in NS 100 ML IV SCH (09:54)
[2018-11-27] MEDS: HYDROcodone/CPM TUSSIONEX 5 ML UDSYR PO PRN ×2 (10:57→23:11)
--- NOTE | 2018-11-27 11:44 | PCMIDPN ---
Assessment/Plan: Assessment: Esophageal perforation-status post operative repair. Status post stenting. Status post stent revision. Status post VATS. White blood cell count much improved. Continue to cover with IV Unasyn. Lung fungal cultures growing Patricia lusitanae. Will continue on micafungin for now with intention to switch to oral fluconazole upon discharge. Agree with transition over to p.o. Augmentin at point of discharge to cover lactobacillus. Plan: 1. Continue IV Unasyn. Continue IV micafungin. 2. Probable discharge tomorrow. Expectation is for patient to be on oral medications at that point. 11/27/18 15:02 Subjective: Patient has chest tube removed this morning. He continues to have a chronic nagging cough. It is nonproductive. No fevers. Feels generally better. Objective: Unasyn # 25 Micafungin # 6 Vital Signs Temp Pulse Resp BP Pulse Ox 37.7 C 97 18 145/94 H 90 L 11/27/18 08:28 11/27/18 08:28 11/27/18 08:28 11/27/18 08:28 11/27/18 08:28 Laboratory Results 11/26/18 06:25 11/27/18 05:15 11/26/18 11/27/18 11/28/18 05:59 05:59 05:59 Intake Total 900 1768 200 Output Total 1175 620 0 Balance -275 1148 200 - Physical Exam General Appearance: WD/WN, alert, no apparent distress, non-toxic Respiratory: lungs clear, normal breath sounds, No respiratory distress Cardiac/Chest: regular rate, rhythm, No tachycardia Skin: normal color, warm/dry, No rash Neuro/Psych: alert, normal mood/affect, oriented x 3 ICD10 Worksheet Patient Problems: Problems Problem Status Onset Perforated viscus Acute
[2018-11-27] MEDS: ONDANSETRON 4 MG/2 ML VIAL IVP PRN (14:27)
--- NOTE | 2018-11-27 14:40 | HOSPPROG ---
Hospitalist Progress Note Assessment/Plan: 58 yo male with peritonitis/mediastinitis s/p repair of GE junction perforation with esophageal stent. We are consulted for Afib. Atrial fib with RVR- rate controlled, NSR -cont Lopressor -changing lovenox to eliquis today GE junction perforation with peritonitis/mediastinitis - status post repair and I&D with esophageal stenting on November 18. -cont Micafungin, diflucan at dc -Cont Unasyn, augmentin at dc -ID following -Cx c/w Patricia Lusitaniae -Chest tubes out today per surg, discussed case with Dr. Leon S/P VATS decortication Normocytic anemia - hemoglobin and hematocrit remained stable. No evidence of active bleed. -Monitor Cough: multifactorial. cont Tussionex, Tessalon, Zyrtec, Cepacol DVT prophylaxis- eliquis Nutrition- regular Cor - full Disposition- per primary surgery team Subjective: Pt feels ok, cough a little better. No chest pain. No fevers. Taking po well. No recurrent a fib. Objective: Vital Signs Temp Pulse Resp BP Pulse Ox 36.5 C 82 18 133/90 H 93 11/27/18 12:00 11/27/18 12:00 11/27/18 12:00 11/27/18 12:00 11/27/18 12:00 Microbiology 11/18/18 14:06 Gram Stain - Final Lung - Tissue Anaerobic Culture - Final Patricia Lusitaniae 11/18/18 16:08 Gram Stain - Final Lung - Eswab Anaerobic Culture - Final Patricia Lusitaniae Laboratory Results 11/26/18 06:25 11/27/18 05:15 11/26/18 11/27/18 11/28/18 05:59 05:59 05:59 Intake Total 900 1768 200 Output Total 1175 620 0 Balance -275 1148 200 PT 15.8 SEC (12.0-15.0) H 11/13/18 06:05 INR 1.24 (0.83-1.16) H 11/13/18 06:05 - Physical Exam Constitutional: no apparent distress Eyes: PERRL Ears, Nose, Mouth, Throat: moist mucous membranes Cardiovascular: regular rate and rhythym Respiratory: no respiratory distress, clear to auscultation Gastrointestinal: normoactive bowel sounds, soft, non-tender abdomen Skin: warm Musculoskeletal: full muscle strength Neurologic: AAOx3 Psychiatric: interacting appropriately ICD10 Worksheet Patient Problems: Problems Problem Status Onset Perforated viscus Acute
[2018-11-27] MEDS: IBUPROFEN SUSP 100 MG/5 ML UDCUP PO PRN ×2 (14:42→21:25)
[2018-11-27] MEDS: CEPACOL LOZENGE PO PRN ×2 (14:43→20:41)
[2018-11-27] MEDS: BENZONATATE 100 MG CAP PO PRN (17:54)
[2018-11-27] MEDS: MELATONIN 3 MG TAB PO SCH (20:29)
[2018-11-28] MEDS: AMPICILLIN/SULBACTAM 3 GM in NS 100 ML IV SCH (06:02)
--- NOTE | 2018-11-28 09:16 | HOSPPROG ---
Hospitalist Progress Note Assessment/Plan: 58 yo male with peritonitis/mediastinitis s/p repair of GE junction perforation with esophageal stent. We are consulted for Afib. Atrial fib with RVR- rate controlled, NSR -cont Lopressor, Eliquis GE junction perforation with peritonitis/mediastinitis - status post repair and I&D with esophageal stenting on November 18. -transitioned to oral diflucan today -transitioned to oral augmentin today -ID following -Cx c/w Patricia Lusitaniae -Chest tubes out per surg, discussed case with Dr. Leon S/P VATS decortication Normocytic anemia - hemoglobin and hematocrit remained stable. No evidence of active bleed. -Monitor Cough: multifactorial. 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 Cough improved today, ibuprofen helped yesterday. No CP or sob. No palpitations or recurrent arrhythmias. No fevers. He is preparing to dc tomorrow. Objective: Vital Signs Temp Pulse Resp BP Pulse Ox 36.9 C 94 16 132/83 H 96 11/27/18 20:00 11/27/18 20:28 11/27/18 20:00 11/27/18 20:28 11/27/18 20:00 Microbiology 11/18/18 14:06 Gram Stain - Final Lung - Tissue Anaerobic Culture - Final Patricia Lusitaniae 11/18/18 16:08 Gram Stain - Final Lung - Eswab Anaerobic Culture - Final Patricia Lusitaniae Laboratory Results 11/26/18 06:25 11/27/18 05:15 11/27/18 11/28/18 11/29/18 05:59 05:59 05:59 Intake Total 1768 1100 Output Total 620 0 Balance 1148 1100 PT 15.8 SEC (12.0-15.0) H 11/13/18 06:05 INR 1.24 (0.83-1.16) H 11/13/18 06:05 - Physical Exam Constitutional: no apparent distress Eyes: PERRL Ears, Nose, Mouth, Throat: moist mucous membranes Cardiovascular: regular rate and rhythym Respiratory: no respiratory distress, clear to auscultation Gastrointestinal: normoactive bowel sounds, soft, non-tender abdomen Skin: warm, other (left flank with irregular skin lesion, abnormal borders and pigment) Musculoskeletal: full muscle strength Neurologic: AAOx3 Psychiatric: interacting appropriately ICD10 Worksheet Patient Problems: Problems Problem Status Onset Perforated viscus Acute
--- NOTE | 2018-11-28 09:28 | SOAPPROG ---
SOAP Progress Note Assessment/Plan: Assessment:s/p repair of GE junction perforation POD #34- s/p left VATS decortication POD#10 cultures growing Patricia lusitaniae Started on oral Fluconozole + Augmentin today s/p deployment of esophageal covered stent POD #27/18-chest tubes removed today recurrent A-fib with RVR, currently in NSR Plan: diet as tolerated-[facility] Loren[facility]/ discussed again in some detail anticoagulation currently with Eliquis 5 mg po BID oral meds/ recheck creat 0.7 will add po Ibuprofen continue Singulair as it seems to have helped his cough replace K+ anticipate discharge tomorrow will continue cardiac monitoring and check ECG tomorrow prior to discharge S MD Edward, FACS 10/27/18 07:11 10/28/18 10:11 10/29/18 10:55 10/30/18 10:47 10/31/18 07:14 11/01/18 08:17 11/02/18 06:47 11/03/18 07:29 11/04/18 12:38 11/04/18 14:25 11/05/18 08:13 11/05/18 08:16 11/07/18 11:34 11/08/18 09:29 11/09/18 06:58 11/10/18 15:56 11/11/18 09:01 11/12/18 06:50 11/13/18 05:53 11/14/18 08:59 11/15/18 09:55 11/15/18 10:20 11/16/18 08:45 11/17/18 09:36 11/18/18 09:50 11/19/18 06:42 11/20/18 09:52 11/20/18 09:53 11/21/18 08:47 11/21/18 08:51 11/22/18 11:41 11/23/18 08:03 11/24/18 13:01 11/25/18 16:37 11/25/18 17:52 11/26/18 07:56 11/27/18 08:09 11/28/18 09:35 Subjective: resting comfortably/tolerating pain with Ibuprofen Objective: Vital Signs Temp Pulse Resp BP Pulse Ox 36.9 C 94 16 132/83 H 96 11/27/18 20:00 11/27/18 20:28 11/27/18 20:00 11/27/18 20:28 11/27/18 20:00 Microbiology 11/18/18 14:06 Gram Stain - Final Lung - Tissue Anaerobic Culture - Final Patricia Lusitaniae 11/18/18 16:08 Gram Stain - Final Lung - Eswab Anaerobic Culture - Final Patricia Lusitaniae Laboratory Results 11/26/18 06:25 11/27/18 05:15 11/27/18 11/28/18 11/29/18 05:59 05:59 05:59 Intake Total 1768 1100 Output Total 620 0 Balance 1148 1100 PT 15.8 SEC (12.0-15.0) H 11/13/18 06:05 INR 1.24 (0.83-1.16) H 11/13/18 06:05 - Pending Discharge Pending Discharge Within 24 Hours: Yes Pending Discharge Date: 11/29/18 Pending Discharge Time: 11:00 Physical Exam - Physical Exam General Appearance: no apparent distress, other (mild intermitant cough) Respiratory: pain on movement, other (CT sites uncomplicated) Cardiac/Chest: regular rate, rhythm Neuro/Psych: alert, normal mood/affect ICD10 Worksheet Patient Problems: Problems Problem Status Onset Perforated viscus Acute
[2018-11-28] MEDS: AMOX TR/K CLAV 400 MG/5 ML 100ML BULK BTL PO SCH ×2 (10:07→20:44)
[2018-11-28] MEDS: METOPROLOL TARTRATE 25 MG TAB PO SCH ×2 (10:09→20:41)
[2018-11-28] MEDS: MONTELUKAST SODIUM 10 MG TAB PO SCH (10:09)
[2018-11-28] MEDS: APIXABAN 5 MG TAB PO SCH ×2 (10:09→20:41)
[2018-11-28] MEDS: CETIRIZINE 10 MG TAB PO SCH (10:09)
[2018-11-28] MEDS: PANTOPRAZOLE SODIUM 40 MG TAB PO SCH (10:14)
--- NOTE | 2018-11-28 10:17 | PDIAF ---
- Diagnosis Diagnosis: Empyema Code Status: Full Code - Medication Management Discharge Medications: electronically signed and located in the Home Medication List. - Labs/Radiology CBC w/diff Date: 12/05/18 (Please fax results to Dr. Lion [phone]. Labs Q Tuesday) CMP Date: 12/05/18 (Labs Q Tuesday. Fax results to Dr. Lion as above) Imaging Orders: Q Tuesday EKG at [facility].Fax results to [phone] - Follow Up Care Current Providers and Referrals: Anand Parks MD [Primary Care Provider] - As per Instructions Erik Lion MD [Medical Doctor] - (Patient has an appointment with Dr. Erik Lion TuesdayDecember 12 at 11:30 a.m. At the [facility])
--- NOTE | 2018-11-28 10:24 | PCMIDPN ---
Assessment/Plan: 1. Esophageal perforation with peritonitis and mediastinitis status post exploratory laparotomy with repair/esophageal stenting x2 and VATS: He is now on oral anti microbial/antifungal therapy. Tentative stop date (4 weeks post VATS) December 15. He will have an EKG repeated tomorrow before he leaves, and I have asked discharge planning to make him an appointment at [facility] to have an EKG ordered Q Tuesday x2. He has an appointment to see Dr. Lion on December 12. Of note, EKG from yesterday has not been read and I have asked patient's nurse to make sure that has been done today. I am not able to pull up the image myself. 2. Miscellaneous: Reviewed with patient possible adverse reactions with long-term antibiotics including signs/symptoms of C difficile colitis, possibility of antibiotic associated rash, and need for lab monitoring as well as weekly EKG on fluconazole. He expressed understanding. Over 25 min spent with this patient today. Subjective: Patient eager to go home. Will likely go home tomorrow. Switched to oral antibacterials and antifungals today. Patient is doing reasonably well. No major complaints. Cough slightly improved compared to when I saw him last. Has loose stool, but no diarrhea. Objective: Oral solution amoxicillin clavulanate 800 p.o. Twice daily (antibiotics day 27) Fluconazole 400 mg p. O. Daily (anti fungal day 8) No fevers Vital Signs Temp Pulse Resp BP Pulse Ox 36.9 C 93 16 140/88 H 96 11/27/18 20:00 11/28/18 10:13 11/27/18 20:00 11/28/18 10:13 11/27/18 20:00 Microbiology 11/18/18 14:06 Gram Stain - Final Lung - Tissue Anaerobic Culture - Final Patricia Lusitaniae 11/18/18 16:08 Gram Stain - Final Lung - Eswab Anaerobic Culture - Final Patricia Lusitaniae Laboratory Results 11/26/18 06:25 11/27/18 05:15 11/27/18 11/28/18 11/29/18 05:59 05:59 05:59 Intake Total 1768 1100 Output Total 620 0 Balance 1148 1100 No new microbiology Patricia lusitaniae susceptibility still pending - Physical Exam General Appearance: other (pale, NAD) EENT: pharynx normal, other (Black hairy tongue unchanged), No thrush Respiratory: other (Marked improvement in breath sounds at left base.) Extremities: other (PICC line remains in right upper extremity) Abdomen: non-tender, soft Skin: No rash ICD10 Worksheet Patient Problems: Problems Problem Status Onset Perforated viscus Acute
[2018-11-28] MEDS: FLUCONAZOLE 40 MG/ML UDSYR PO SCH (10:39)
[2018-11-28] MEDS: MICAFUNGIN NA 100 MG in NS 100 ML IV SCH (11:17)
[2018-11-28] MEDS: IBUPROFEN SUSP 100 MG/5 ML UDCUP PO PRN ×2 (13:34→20:46)
--- NOTE | 2018-11-28 16:32 | ASMTCMCOM ---
CM Note CM Note Notes: Pt now tolerating regular diet and will be able to transition to PO antimicrobial meds on discharge. Spoke with pt in the room. He is comfortable with discharging independently. [facility] informed. Order for outpatient EKG faxed to [facility] and pt given order and educated on location and need for OP EKG on TuesdayDec 04 and Tuesday December 11, 2018. [facility] offers walk-up EKG. No appointment necessary. Information updated in discharge instructions. Likely discharge tomorrow. CM to follow. D/C Plan: Independent with follow up EKGs Date Signed: 11/28/2018 04:32 PM Electronically Signed By:Radha Ying
--- NOTE | 2018-11-28 18:03 | CPEKG ---
Test Reason : OPEN Blood Pressure : / mmHG Vent. Rate : 083 BPM Atrial Rate : 082 BPM P-R Int : 148 ms QRS Dur : 079 ms QT Int : 373 ms P-R-T Axes : -14 -05 023 degrees QTc Int : 439 ms Sinus rhythm Confirmed by Kiki Wilder ([id number]) on 11/28/2018 6:03:02 PM Referred By: Confirmed By:Kiki Wilder
[2018-11-28] MEDS: MELATONIN 3 MG TAB PO SCH (20:41)
[2018-11-28] MEDS: HYDROcodone/CPM TUSSIONEX 5 ML UDSYR PO PRN (21:33)
[2018-11-29] MEDS: BENZONATATE 100 MG CAP PO PRN ×2 (00:47→10:31)
--- NOTE | 2018-11-29 09:37 | SOAPPROG ---
SOAP Progress Note Assessment/Plan: Assessment:s/p repair of GE junction perforation POD #35- s/p left VATS decortication POD#11 cultures growing Patricia lusitaniae Started on oral Fluconozole + Augmentin 11/28/18 s/p deployment of esophageal covered stent POD #27/18-chest tubes removed today recurrent A-fib with RVR, currently in NSR Plan: diet as tolerated-Post Lorenza diet recommended per [facility] protocol/ discussed again in some detail anticoagulation currently with Eliquis 5 mg po BID discussed cautious use of Ibuprofen/Tylenol continue Singulair as it seems to have helped his cough anticipate discharge today, pending approval by ID will continue cardiac monitoring and check ECG weekly final sensitivity available today, the Patricia appears pansensitive I recommended leaving in the PICC until these results are back S MD Edward, FACS 10/27/18 07:11 10/28/18 10:11 10/29/18 10:55 10/30/18 10:47 10/31/18 07:14 11/01/18 08:17 11/02/18 06:47 11/03/18 07:29 11/04/18 12:38 11/04/18 14:25 11/05/18 08:13 11/05/18 08:16 11/07/18 11:34 11/08/18 09:29 11/09/18 06:58 11/10/18 15:56 11/11/18 09:01 11/12/18 06:50 11/13/18 05:53 11/14/18 08:59 11/15/18 09:55 11/15/18 10:20 11/16/18 08:45 11/17/18 09:36 11/18/18 09:50 11/19/18 06:42 11/20/18 09:52 11/20/18 09:53 11/21/18 08:47 11/21/18 08:51 11/22/18 11:41 11/23/18 08:03 11/24/18 13:01 11/25/18 16:37 11/25/18 17:52 11/26/18 07:56 11/27/18 08:09 11/28/18 09:35 11/29/18 09:33 01/23/19 12:28 Subjective: sitting up enjoying breakfast Objective: Vital Signs Temp Pulse Resp BP Pulse Ox 36.9 C 91 16 138/84 H 92 11/29/18 07:48 11/29/18 07:48 11/29/18 07:48 11/29/18 07:48 11/29/18 07:48 Laboratory Results 11/26/18 06:25 11/27/18 05:15 11/28/18 11/29/18 11/30/18 05:59 05:59 05:59 Intake Total 1100 1700 Output Total 0 Balance 1100 1700 PT 15.8 SEC (12.0-15.0) H 11/13/18 06:05 INR 1.24 (0.83-1.16) H 11/13/18 06:05 - Pending Discharge Pending Discharge Within 24 Hours: Yes Pending Discharge Date: 11/30/18 Pending Discharge Time: 11:00 Physical Exam - Physical Exam General Appearance: no apparent distress Respiratory: other (CT sites clean and dry) Cardiac/Chest: regular rate, rhythm Abdomen: non-tender, soft Neuro/Psych: alert, normal mood/affect, oriented x 3 ICD10 Worksheet Patient Problems: Problems Problem Status Onset Perforated viscus Acute
[2018-11-29] MEDS: METOPROLOL TARTRATE 25 MG TAB PO SCH (09:58)
[2018-11-29] MEDS: PANTOPRAZOLE SODIUM 40 MG TAB PO SCH (09:58)
[2018-11-29] MEDS: CETIRIZINE 10 MG TAB PO SCH (09:58)
[2018-11-29] MEDS: FLUCONAZOLE 40 MG/ML UDSYR PO SCH (09:58)
[2018-11-29] MEDS: APIXABAN 5 MG TAB PO SCH (09:59)
[2018-11-29] MEDS: MONTELUKAST SODIUM 10 MG TAB PO SCH (09:59)
[2018-11-29] MEDS: AMOX TR/K CLAV 400 MG/5 ML 100ML BULK BTL PO SCH (10:17)
[2018-11-29] MEDS: CEPACOL LOZENGE PO PRN (10:45)
[2018-11-29 11:11] VITALS: BP 130/86
[2018-11-29] MEDS: IBUPROFEN SUSP 100 MG/5 ML UDCUP PO PRN (12:41)
--- NOTE | 2018-11-29 12:45 | PCMIDPN ---
Assessment/Plan: Assessment: 58-year-old man with esophageal perforation secondary to procedure complicated by left-sided empyema and esophageal stent. Overall improved, chest tubes out with no local signs of inflammation, respiratory status improved , and decreasing general inflammatory response. Susceptibility testing on send out Patricia returned with no concern for fluconazole resistance or lack of effect. He will be continued on oral fluconazole and Augmentin through his infectious diseases appointment in December. 1. Left-sided empyema secondary to Patricia lusitaniae status post VATS procedure 11/18/2018 2. Thrombocytosis, expected slow resolution from systemic inflammation 3. Perforated esophagus at GE junction, status post surgical repair with Lorenza fundoplication 10/26/2018 4. Mediastinitis secondary to 3. 5. Status post esophageal stent placement 10/30/2018 6. Status post esophageal stent exchange 11/09/2018 7. Status post left-sided chest tube removal 11/27/2018 8. Peritonitis secondary to 3., polymicrobial; resolved Plan: 1. Continue fluconazole 400 mg p.o. Daily (4.7 milligrams/kilogram) through December 15 2. Continue Augmentin 800 mg p.o. Daily through December 15 3. Infectious Diseases follow-up set for December [address] Lion 4. Agree with PICC line removal prior to discharge 5. QTC variable but remains less than 500 milliseconds 11/29/18 12:47 11/29/18 12:57 Subjective: No fever, chills, or night sweats. Pain at chest tube removal site improving. No rash or diarrhea. Objective: Vital Signs Temp Pulse Resp BP Pulse Ox 36.6 C 79 18 130/86 H 93 11/29/18 11:10 11/29/18 11:10 11/29/18 11:10 11/29/18 11:10 11/29/18 11:10 Laboratory Results 11/26/18 06:25 11/27/18 05:15 11/28/18 11/29/18 11/30/18 05:59 05:59 05:59 Intake Total 1100 1700 Output Total 0 Balance 1100 1700 Microbiology 10/25/18 20:10 Abdomen - Eswab Gram Stain - Final 10/25/18 20:10 Abdomen - Eswab Anaerobic Culture - Final Staphylococcus Aureus Streptococcus Thermophilus Streptococcus Mitis/Oralis 11/18/18 16:08 Lung - Eswab Gram Stain - Final 11/18/18 16:08 Lung - Eswab Anaerobic Culture - Final Patricia Lusitaniae 11/18/18 14:06 Lung - Tissue Gram Stain - Final 11/18/18 14:06 Lung - Tissue Anaerobic Culture - Final Patricia Lusitaniae 11/08/18 14:00 Pleural Fluid - Aspirate Gram Stain - Final 11/08/18 14:00 Pleural Fluid - Aspirate Anaerobic Culture - Final Lactobacillus Species 11/18/18 16:08 Lung - Eswab Fungal Culture - Preliminary Patricia Lusitaniae Laboratory Tests 11/25/18 11/26/18 11/26/18 05:50 06:25 06:25 WBC 9.75 H 8.66 Creatinine 0.7 11/27/18 05:15 WBC Creatinine 0.7 - Physical Exam General Appearance: alert, no apparent distress, non-toxic EENT: No scleral icterus Respiratory: lungs clear (Rales at the bases bilaterally), No respiratory distress, No wheezing Neck: supple Cardiac/Chest: regular rate, rhythm, No bradycardia, No tachycardia, No diastolic murmur, No systolic murmur Extremities: normal inspection, No erythema Abdomen: non-tender, soft Back: normal inspection (Left-sided chest tube sites without surrounding erythema or drainage) Skin: normal color, No rash (Right-sided chest tube sites healing well, sutures removed) Neuro/Psych: alert, normal mood/affect, oriented x 3 - Time Spent With Patient Time Spent with Patient: greater than 25 minutes (Greater than 25 min with greater than 50% of this time spent [id number] counseling patient on antibiotic side effects, expected outcome of empyema, in followup time.) Time Spent with Patient: Greater than 25 minutes spent on this patients care, greater than 50% of time spent counseling, educating, and coordinating care regarding the above mentioned plan. ICD10 Worksheet Patient Problems: Problems Problem Status Onset Perforated viscus Acute
--- NOTE | 2018-11-29 13:17 | ASMTDCNOTE ---
Case Management Discharge Discharge Order Complete? Answers: Yes Patient to Obtain Answers: via Family Medications Transportation Arranged Answers: Family/Friends Faxed Final Orders Answers: Yes Agency/Facility Transfer Answers: Yes Report Printed & Faxed to Receiving Agency Family Notified Answers: Yes Discharge Comments Notes: CM sppoke with Dr. Leon. Pt is being discharged with PIc line. CM to arrange [facility] RN and [facility] home infusion for supplies. CM submit orders. CM explained to process and is agreeable. No other CM needs identified. Family to transport. Date Signed: 11/29/2018 01:16 PM Electronically Signed By:MILES Watson
--- NOTE | 2018-11-29 13:20 | PDDCSUM ---
Discharge Summary Discharge Summary: #[id number] Discharge Summary Dictated Iliana Leon MD, FACS
--- NOTE | 2018-11-29 13:26 | ASDISCHSUM ---
Discharge Information Plan Status:Home with No Needs Medically Cleared to Leave: Discharge Date: D/C Disposition:Home, Routine, Self-Care ADT D/C Disposition:Home, Routine, Self-Care Projected Discharge Date:11/29/2018 11:00 AM Transportation at D/C:Family Discharge Delay Reason: Follow-Up Date:11/29/2018 11:00 AM Discharge Slot: Final Diagnosis: Placement Information Referral Type:Home Infusion Referral ID:[id number] Provider Name: Address 1: Phone Number: Address 2: Fax Number: City: Selection Factors: State: Referral Type:*Home Health Care Services Referral ID:[id number] Provider Name: Address 1: Phone Number: Address 2: Fax Number: City: Selection Factors: State: Patient Contact Information Contact Name:LIVAN Relationship: Address:[address] City:[place] Alternate Phone: [facility]/Zip Code:[place] [address] Email: Financial Information Financial Class:RYAN Primary Plan Desc:MARIO HARTLEY PPO Primary Plan Number:[id number] Secondary Plan Desc: Secondary Plan Number: Assessment Information LACE LACE Length of stay for Answers: 2 days current admission Acuity / Level of Answers: Yes Care: Did the patient have an inpatient admission? Comorbidities - select Answers: Other Notes: GERD all that apply # of Emergency department Answers: 1-2 visits in the last 6 months Score: 7 Date Signed: 10/30/2018 04:38 PM Electronically Signed By:VERNA Lamb [facility] CM Progress Note CM Note CM Note Notes: 10/26/2018 Case Management Note Reviewed chart. Pt admitted for visceral perforation, pneumoperitoneum, and pneumomediastinum. Pt had EGD outpatient procedure earlier on 10/25 before presenting to the ED. Pt has ID consult pending. Currently on Etrapenam with cultures pending. There are no therapy evals ordered at this time. Pt has supportive and family. Case Management d/c poc: to be determined. Case Management to follow. Date Signed: 10/26/2018 02:21 PM Electronically Signed By:Svetlana Storey RN [facility] CM Progress Note CM Note CM Note Notes: Spoke with patient's nurse. Patient has bilateral chest tubes and is currently 4L02. There are concerns regarding sepsis so patient is on vanco and Invanz. Patient will need a swallow, currently NPO. D/C plan TBD. CM will follow. Date Signed: 10/27/2018 03:57 PM Electronically Signed By:Carrie Ram LCSW [facility] CM Progress Note CM Note CM Note Notes: Pt medically stable for d/c home with friends/family support. Pt does not qualify for [facility] as she has no local PCP and is leaving [place] on 11/02/18. No CM d/c needs identified. Date Signed: 10/30/2018 04:39 PM Electronically Signed By:VERNA Lamb [facility] CM Progress Note CM Note CM Note Notes: Please disregard previous CM note from 10/30/18 16:39, it does not apply to this pt Date Signed: 10/30/2018 04:40 PM Electronically Signed By:VERNA Lamb [facility] CM Progress Note CM Note CM Note Notes: Perf esophagus repair with complications. PT recommending HM with supervision and HC. Patient is A & O , 4 lits of O2, Bilat chest tubes. Lives with his in [place]. 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 CM to follow. Date Signed: 10/31/2018 03:04 PM Electronically Signed By:Mell Carreno LCSW [facility] CM Progress Note CM Note CM Note Notes: Pt had surgical chest tube placed. PT rec HM with supervision. CM to continue to follow. Plan: TBD Date Signed: 11/03/2018 05:09 PM Electronically Signed By:MILES Watson [facility] CM Progress Note CM Note CM Note Notes: PT recommending Hm with out-pt therapy, OT recommending HC. left message for inviting her to a "Family Meeting", she wasn't available today. Date Signed: 11/06/2018 03:15 PM Electronically Signed By:Mell Carreno LCSW [facility] CM Progress Note CM Note CM Note Notes: Pts case discussed w/ MACKENZIE Ellis. Therapies have cleared pt to d/c without any need. Pts TPN will be stopped tonight nd be transitioned to fluids. Pt should not have any d/c needs. CM available for changes. Plan: Independent Date Signed: 11/10/2018 03:21 PM Electronically Signed By:MILES Platt BC CM Progress Note CM Note CM Note Notes: IV medications are continuing per chart review. CM to follow to determine needs prior to discharge. Plan: HI fusion TBD [employer] Date Signed: 11/13/2018 01:43 PM Electronically Signed By:MILES Watson [facility] CM Progress Note CM Note CM Note Notes: 11/16/2018 Case Management Note Discussed with RN. Discharge date is unclear at this time. Pt may require the services of a home infusion company upon discharge. Discharge needs are unclear. Case Management d/c poc: to be determined, likely a home infusion agency Case Management will continue to follow. Date Signed: 11/16/2018 02:36 PM Electronically Signed By:Svetlana Storey RN [facility] CM Progress Note CM Note CM Note Notes: 11/20/2018 Case Management Note Reviewed chart. Pt had VATS procedure over the weekend. D/C needs remain unclear. Possibly needing a home infusion company for TPN needs. Case Management d/c poc: to be determined. Case Management to follow. Date Signed: 11/20/2018 02:48 PM Electronically Signed By:Svetlana Storey RN [facility] CM Progress Note CM Note CM Note Notes: 11/21/2018 Case Management Note Discussed pt during rounds this morning. Pt had afib last night. TPN has been discontinued. Discharge needs and date are unclear. Case Management d/c poc: to e determined. Case Management to follow. Date Signed: 11/21/2018 03:35 PM Electronically Signed By:Svetlana Storey RN [facility] CM Progress Note CM Note CM Note Notes: Pts case discussed in tx rounds. Pt will most likely require ivabx at time of d/c. Pt still has his chest tube in from VATS procedure. Referral made to [facility] and [facility]. CM to follow. Plan: TBD Date Signed: 11/22/2018 02:19 PM Electronically Signed By:MILES Platt [facility] CM Progress Note CM Note CM Note Notes: Pts case discussed in tx rounds. Libia from [facility] stopped by and visited w/ pt. TPN has stopped. Pts chest tube is still in. Libia will follow up early next week. Updates sent to [facility]. CM to follow. Plan: [facility]/ MICAH, RN Date Signed: 11/23/2018 02:07 PM Electronically Signed By:MILES Platt [facility] CM Progress Note CM Note CM Note Notes: 11/25/2018 Case Management Note Discussed with Dr. Perez. Pt likely to d/c on oral antibiotics. Anticipating d/c Tuesday. [facility] is accepting pt, though there may not be a need if pt d/c on oral meds. Case Management d/c poc: to be determined. Case Management to follow. Date Signed: 11/25/2018 02:25 PM Electronically Signed By:Svetlana Storey RN [facility] CM Progress Note CM Note CM Note Notes: Pt now tolerating regular diet and will be able to transition to PO antimicrobial meds on discharge. Spoke with pt in the room. He is comfortable with discharging independently. [facility] and [facility] informed. Order for outpatient EKG faxed to [facility] and pt given order and educated on location and need for OP EKG on TuesdayDec 04 and Tuesday December 11, 2018. [facility] [place]. No appointment necessary. Information updated in discharge instructions. Likely discharge tomorrow. CM to follow. D/C Plan: Independent with follow up EKGs Date Signed: 11/28/2018 04:32 PM Electronically Signed By:Radha Ying Case Management Discharge Plan Note Case Management Discharge Discharge Order Complete? Answers: Yes Patient to Obtain Answers: via Family Medications Transportation Arranged Answers: Family/Friends Faxed Final Orders Answers: Yes Agency/Facility Transfer Answers: Yes Report Printed & Faxed to Receiving Agency Family Notified Answers: Yes Discharge Comments Notes: CM sppoke with Dr. Leon. Pt is being discharged with PIc line. CM to arrange [facility] RN and [facility] home infusion for supplies. CM submit orders. CM explained to process and is agreeable. No other CM needs identified. Family to transport. Date Signed: 11/29/2018 01:16 PM Electronically Signed By:MILES Watson [facility] Progress Note CM Note CM Note Notes: Dr Leon just spoke to and reported they are taking the Pic line out because they recieved results from [facility] and pic line is not needed. Pt is being discharged independently. Family to transport. Date Signed: 11/29/2018 01:24 PM Electronically Signed By:MILES Watson Intervention Information Intervention Type:*Incorrect Registration Date of Service:10/26/2018 08:34 AM Patient Type:Observation Staff Member:MACKENZIE Gresham Patricia Hours: Discipline: Severity: Comment:
--- NOTE | 2018-11-29 13:35 | ASMTLACE ---
LACE Length of stay for Answers: 14 days or more current admission Acuity / Level of Answers: Yes Care: Did the patient have an inpatient admission? Comorbidities - select Answers: Other Notes: GERD all that apply # of Emergency department Answers: 1-2 visits in the last 6 months Score: 12 Date Signed: 11/29/2018 01:34 PM Electronically Signed By:MILES Watson
--- NOTE | 2018-11-29 14:02 | GDS ---
DISCHARGE DIAGNOSES: 1. Perforation of the distal thoracic esophagus and gastroesophageal junction. 2. Postoperative atrial fibrillation with rapid ventricular response. 3. Empyema thoracis, left. PROCEDURES PERFORMED: 1. 10/25/2018, laparotomy with repair of gastroesophageal junction laceration and Lorenza fundoplication. 2. 10/27/2018, bilateral chest tube placement. 3. 10/30/2018, placement of distal thoracic esophageal stent. 4. 11/03/2018, placement of left chest tube. 5. 11/08/2018, placement of left chest tube. 6. 11/09/2018, removal of previously deployed esophageal stent and placement of thoracic esophageal stent, Dr. Myers. 7. 11/18/2018, VATS left pulmonary decortication and drainage. CONSULTATIONS DURING HOSPITAL STAY: Infectious Disease and Hospitalist Services were consulted and followed the patient throughout the hospital stay. Critical Care saw the patient while he was in the intensive care unit. GI consultation from Dr. Myers. HOSPITAL COURSE: For details of admission history and physical, please see dictated summary. Briefly, the patient is a 58-year-old male who underwent elective EGD and dilatation of a distal esophageal stricture on the date of admission. The patient developed severe pain following the procedure and came to the emergency room, at which time he was found to have free air and fluid in the abdominal cavity on CT, as well as air in the mediastinum extending from the diaphragm up to the neck. The patient was brought to the operating room after fluid resuscitation and receiving broad-spectrum antibiotics, underwent laparotomy and was found to have a 3 cm laceration at the GE junction. This was repaired primarily and a Lorenza fundoplication performed to buttress the repair. Mediastinal drain tubes were placed at that procedure. The patient had an initially uneventful course postoperatively. He had an orogastric tube placed that drained minimal gastric contents. Approximately 2 days postoperatively, he developed large bilateral pleural effusions, greater on left than right, and underwent chest tube placement. Cultures from the subsequent fluid grew out lactobacillus. Chest tubes were left in place. Unfortunately, he developed a loculated collection and underwent multiple subsequent chest tubes placements. Following the initial chest tube placement, however, a Gastrografin swallow was performed and the patient was found to have , this was performed on October 30, 2 leaks in the distal thoracic esophagus above the diaphragm. Dr. Myers was consulted, and he deployed a 23 x 103 mm covered esophageal stent. This, unfortunately, migrated and ended up in the stomach. Repeat imaging confirmed that there was still a persistent leak, and he underwent a 2nd esophageal stent placement with removal of the 1st. Following this, there was no evidence of leak on subsequent contrast imaging. However, the patient remained febrile, had leukocytosis. Despite attempts at percutaneous chest tube placement, ultimately required a video-assisted thoracic approach for decortication of the left lung. 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 He defervesced following that surgery and ultimately resolved his leukocytosis. Chest tube drainage came down within the 1st week. However, we left the chest tubes in because of the presence of fungi. Sensitivities were submitted to the [facility], which became available on the day of discharge and showed that the Patricia lusitaniae was pansensitive and he was maintained on fluconazole 400 mg p.o. daily, to be continued for an additional 2 weeks. He had been on Unasyn since shortly after the initial perforation was repaired, and he was switched to oral Augmentin prior to discharge. The patient developed paroxysmal atrial fibrillation following surgery, and was kept on a monitor throughout his hospital stay. He was treated variably with diltiazem and amiodarone. At the time of discharge, was in sinus rhythm, taking metoprolol 25 mg p.o. twice daily. He was fully anticoagulated with initially low molecular weight heparin at 90 mg subcu twice daily, and was switched to Eliquis 5 mg p.o. twice daily at time of discharge. His nutritional status required temporary use of intravenous TPN. Following the VATS procedure, he was advanced in his diet and was tolerating soft foods at time of discharge. He was discharged home with the following medications and will follow up with his primary care physician, Dr. Edson Thompson, within a week or so after discharge. DISCHARGE MEDICATIONS: Include Tylenol 650 mg p.o. q.4 hours p.r.n. pain or low -grade fever, Augmentin 400 mg per 5 mL total of 800 mg p.o. twice daily, Eliquis 5 mg p.o. twice daily, Cepacol lozenges p.r.n., Tessalon Perles 200 mg p.o. three times daily p.r.n., fluconazole oral liquid 400 mg p.o. daily for 30 days, melatonin 3 mg p.o. at bedtime p.r.n., metoprolol 25 mg p.o. twice daily, and Singulair 10 mg p.o. daily. He will resume his omeprazole 40 mg p.o. daily , Rhinocort spray as needed, and loratadine 10 mg p.o. daily. CONDITION ON DISCHARGE: Satisfactory. FOLLOWUP: Arranged in my office on December 11, 2018. He has stent removal scheduled with Dr. Myers on December 18, 2018, and an esophagram to be repeated on December 19, 2018, at which time I will follow up with him in the office once again. /[id number]/MODL MTDD
--- NOTE | 2018-11-29 17:05 | CPEKG ---
Test Reason : OPEN Blood Pressure : / mmHG Vent. Rate : 094 BPM Atrial Rate : 094 BPM P-R Int : 139 ms QRS Dur : 074 ms QT Int : 360 ms P-R-T Axes : 007 -03 017 degrees QTc Int : 451 ms Sinus rhythm Borderline T abnormalities, inferior leads Confirmed by Kiki Wilder ([id number]) on 11/29/2018 5:05:02 PM Referred By: TAE MATA Confirmed By:Kiki Wilder
== END 2018-11-29 15:06 | disposition home health service (06) | DRG 326 ==
LOC: F2N 22:44 → OBSVTOIN 22:47 → F2W 11-09 12:25
PROVIDERS: ADMIT Surgery; ATTEND Surgery
PROC: 0DQ40ZZ Repair Esophagogastric Junction, Open Approach (ICD-10-PCS; principal; 2018-10-25 19:00)
PROC: 0DV40ZZ Restriction of Esophagogastric Junction, Open Approach (ICD-10-PCS; principal; 2018-10-25 19:00)
PROC: 0W9B30Z Drainage of Left Pleural Cavity with Drainage Device, Percutaneous Approach (ICD-10-PCS; 2018-10-27)
PROC: 0W9930Z Drainage of Right Pleural Cavity with Drainage Device, Percutaneous Approach (ICD-10-PCS; 2018-10-27)
PROC: 0D748DZ Dilation of Esophagogastric Junction with Intraluminal Device, Via Natural or Artificial Opening Endoscopic (ICD-10-PCS; 2018-10-30)
PROC: 0DB68ZX Excision of Stomach, Via Natural or Artificial Opening Endoscopic, Diagnostic (ICD-10-PCS; 2018-10-30)
PROC: 02HV33Z Insertion of Infusion Device into Superior Vena Cava, Percutaneous Approach (ICD-10-PCS; 2018-10-30)
PROC: 0W9B30Z Drainage of Left Pleural Cavity with Drainage Device, Percutaneous Approach (ICD-10-PCS; 2018-11-08)
PROC: 0D748DZ Dilation of Esophagogastric Junction with Intraluminal Device, Via Natural or Artificial Opening Endoscopic (ICD-10-PCS; 2018-11-09)
PROC: 0DP68DZ Removal of Intraluminal Device from Stomach, Via Natural or Artificial Opening Endoscopic (ICD-10-PCS; 2018-11-09)
PROC: 0W9940Z Drainage of Right Pleural Cavity with Drainage Device, Percutaneous Endoscopic Approach (ICD-10-PCS; 2018-11-18)
PROC: 0W9B40Z Drainage of Left Pleural Cavity with Drainage Device, Percutaneous Endoscopic Approach (ICD-10-PCS; 2018-11-18)
PROC: 0BNL4ZZ Release Left Lung, Percutaneous Endoscopic Approach (ICD-10-PCS; 2018-11-18)
PROC: 02H733Z Insertion of Infusion Device into Left Atrium, Percutaneous Approach (ICD-10-PCS; 2018-11-23)
DX: K22.3 Perforation of esophagus (principal); J86.9 Pyothorax without fistula; K65.8 Other peritonitis; J98.51 Mediastinitis; J90 Pleural effusion, not elsewhere classified; T85.638A Leakage of other specified internal prosthetic devices, implants and grafts, initial encounter; T85.628A Displacement of other specified internal prosthetic devices, implants and grafts, initial encounter; I48.0 Paroxysmal atrial fibrillation; K14.3 Hypertrophy of tongue papillae; D64.9 Anemia, unspecified; A49.01 Methicillin susceptible Staphylococcus aureus infection, unspecified site; B37.9 Candidiasis, unspecified
CPT/HCPCS: 82435-PO; 82565-PO; 82947-PO; 84132-PO; 84295-PO; 84520-PO; 85014-PO; 85520-90; 87186-90; 92526-GN; 92610-GN; 96365; 97110-GP; 97112-GP; 97116-GP; 97162-GP; 97164-GP; 97165-GO; 97168-GO; 97530-GO; 97530-GP; 97535-GO; C1751; C1769; C1874; J0282; J0295; J1170; J1335; J1450; J1644; J1650; J1885; J2001; J2060; J2248; J2250; J2270; J2310; J2405; J2550; J2704; J2997; J3010; J3370; J3430; J3475; J3480; J7613; J7639; Q9967

== ENCOUNTER → 2018-12-04 | Outpatient (CLI) | payer OTHER | LOC: FIMAGING 10:08 | PROVIDERS: ATTEND Internal Medicine Infectious Disease | DX: J86.9 Pyothorax without fistula (principal); R50.9 Fever, unspecified; Z96.89 Presence of other specified functional implants ==

== ENCOUNTER 2018-12-18 12:06 | Day surgery (SDC) | payer OTHER ==
[2018-12-18] MEDS ORDERED: LR 1,000 ML IV ONE (12:58)
[2018-12-18] MEDS ORDERED: LIDOCAINE 1% 2 ML INJ ID PRN (12:58)
--- NOTE | 2018-12-18 13:31 | PDGENHP ---
History & Physical Chief Complaint: removal of esophageal stent History of Present Illness: 58 year old male presents for removal of esophageal stent. Pertinent Past, Social, Family History: SurgHx: esophageal repair. See anesthesiology note for details. Relevant Physical Exam: HEENT: anicteric. CV: RRR +s1s2. Lungs: CTAB. Abd: soft, nt, + bs Cardiorespiratory Assessment: ASA 3
--- NOTE | 2018-12-18 13:32 | PDANEPAE ---
ANE History of Present Illness 58 yo for egd ANE Past Medical History - Cardiovascular History Hx Hypertension: No Hx Arrhythmias: Yes Hx Chest Pain: No Hx Coronary Artery / Peripheral Vascular Disease: No Hx CHF / Valvular Disease: No Hx Palpitations: Yes Cardiovascular History Comment: followed by dr herrera at [facility] [place] - Pulmonary History Hx COPD: No Hx Asthma/Reactive Airway Disease: No Hx Recent Upper Respiratory Infection: No Hx Oxygen in Use at Home: No Hx Sleep Apnea: No Sleep Apnea Screening Result - Last Documented: Positive Pulmonary History Comment: Pneumothorax s/p esophageal perforation - Neurologic History Hx Cerebrovascular Accident: No Hx Seizures: No Hx Dementia: No - Endocrine History Hx Diabetes: No - Renal History Hx Renal Disorders: No - Liver History Hx Hepatic Disorders: No - Neurological & Psychiatric Hx Hx Neurological and Psychiatric Disorders: No - Cancer History Hx Cancer: Yes 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 10/25/18 surgical repair of perforation with Lorenza fundoplication. thoracic esophageal stent placed and removed. current esophageal stent in place. reflux - Other Health History Other Health History: wear glasses - Chronic Pain History Chronic Pain: No - Surgical History Prior Surgeries: 11/18/18 left VATS with Johs d/t empyema. 11/09/18 EGD with stent removal and placement with Louis. 11/03/18 bilateral chest tub placement with Johs. 10/30/18 EGD with esophageal stent placed with Raju. 10/25/18 lap repair of esophageal perforation with Johs. 10/25/18 [place] [facility] [place] Review of Systems Review of Systems: - Exercise capacity METS (RN): 3 METS ANE Patient History - Allergies Allergies/Adverse Reactions: No Known Allergies Allergy (Verified 12/13/18 15:22) - Home Medications Home Medications: Budesonide [Rhinocort Allergy] 10/25/18 [Last Taken 12/18/18 09:00] Loratadine PRN 10/25/18 [Last Taken 12/17/18 09:00] Omeprazole 10/25/18 [Last Taken 12/18/18 09:00] Apixaban [Eliquis] BID 12/13/18 [Last Taken 12/15/18 09:30] Benzonatate [Tessalon Pearles] PRN 12/13/18 [Last Taken 12/18/18 02:00] Hydrocodone-Guaif 2.5-200 mg/5 HS PRN 12/13/18 [Last Taken 12/16/18 21:00] Metoprolol Tartrate [Lopressor 25 mg (*)] BID 12/13/18 [Last Taken 12/18/18 09: 30] Promethazine HCl PRN 12/13/18 [Last Taken 12/16/18 19:00] - NPO status NPO Since - Liquids (Date): 12/18/18 NPO Since - Liquids (Time): 10:00 NPO Since - Solids (Date): 12/17/18 NPO Since - Solids (Time): 20:00 - Smoking Hx Smoking Status: Never smoked - Family Anes Hx Family Hx Anesthesia Complications: mother had difficulties with dental procedure anesthetics a long time ago ANE Labs/Vital Signs - Vital Signs Blood Pressure: 122/88 Heart Rate: 66 Respiratory Rate: 16 O2 Sat (%): 97 Height: 6 ft Weight: 84.4 kg ANE Physical Exam - Airway Neck exam: FROM Mallampati Score: Class 2 Mouth exam: normal dental/mouth exam - Pulmonary Pulmonary: no respiratory distress - Cardiovascular Cardiovascular: regular rate and rhythym ANE Anesthesia Plan Anesthesia Plan: GA with mask
[2018-12-18] MEDS ORDERED: PROPOFOL/EMULSION 500 MG/50 ML BOTTLE IV ONE (13:34)
[2018-12-18] MEDS ORDERED: NS 500 ML IV SCH (13:45)
[2018-12-18] MEDS ORDERED: ALBUTEROL 3 ML DEYVIAL IH PRN (13:55)
[2018-12-18] MEDS ORDERED: NALOXONE HCL 0.4 MG/ML INJ IVP PRN (13:55)
[2018-12-18] MEDS ORDERED: ALBUTEROL 3 ML DEYVIAL ONE (14:08)
--- NOTE | 2018-12-18 14:17 | GIREPORT ---
[facility] - Endoscopy Department Patient Name: Samir Ge Procedure Date: 12/18/2018 1:36 PM Patient Type: Outpatient Attending MD/ ER Physician: Juarez Myers MD Procedure: Upper GI endoscopy Indications: Stent removal, esophageal perforation. Patient Profile: 58 year old male with a history of esophageal perforation s/p repair an d stent placement presents for evaluation/removal of the stent. Providers: Juarez Myers MD Medicines: Monitored Anesthesia Care Complications: No immediate complications. Estimated blood loss: None. Description of Procedure: After obtaining informed consent, the endoscope was passed under direct vision. Throughout the procedure, the patient's blood pressure, pulse, and oxygen saturations were monitored continuously. The Endosonoscope was introduced through the mouth, and advanced to the second part of duoden um. The upper GI endoscopy was accomplished without difficulty. The patient tolerated the procedure well. Findings: An esophageal stent was found in the lower third of the esophagus. It w as grasped with rat tooth forceps and removed. A hiatal hernia was present. The examined duodenum was normal. Estimated Blood Loss: Estimated blood loss: none. Post Op Diagnosis: - Removal of an esophageal stent - No obvious perforation seen. - Hiatal hernia. - Normal examined duodenum. - No specimens collected. Recommendation: - Esophogram. - Thank you for allowing me to participate in the care of your patient. Attending Participation: I personally performed the entire procedure. Juarez Myers MD Juarez Myers MD 12/18/2018 2:16:55 PM This report has been signed electronicallyJuarez Myers MD Number of Addenda: 0 Note Initiated On: 12/18/2018 1:36 PM [email or web address]
[2018-12-18 17:12] VITALS: BP 112/72
--- NOTE | 2018-12-18 18:22 | POSTANESTH ---
Post Anesthetic Evaluation Cardiovascular Status: Normal, Stable Respiratory Status: Normal, Stable Level of Consciousness/Mental Status: Can Participate in Eval Pain Control: Adequate, Prn Tx Ordered Nausea/Vomiting Control: Adequate, Prn Tx Ordered Complications Possibly Related to Anesthesia: None Noted
== END 2018-12-18 16:50 | disposition home or self-care (01) ==
LOC: FSGY 12:06
PROVIDERS: ATTEND Internal Medicine Gastroenterology
PROC: 0DP58DZ Removal of Intraluminal Device from Esophagus, Via Natural or Artificial Opening Endoscopic (ICD-10-PCS; principal; 2018-12-18 13:30)
DX: Z46.59 Encounter for fitting and adjustment of other gastrointestinal appliance and device (principal); K44.9 Diaphragmatic hernia without obstruction or gangrene; I48.0 Paroxysmal atrial fibrillation; Z79.01 Long term (current) use of anticoagulants; Z87.19 Personal history of other diseases of the digestive system
CPT/HCPCS: J2704; J7613